=== PATIENT | male | born 1955 | race Caucasian/White ===

== ENCOUNTER 2020-06-23 07:48 | Outpatient (REF) | payer OTHER, MEDICARE, SELFPAY ==
[2020-06-23 08:45] LABS: MANUAL DIFF FLAG NO
[2020-06-23 09:14] LABS: Basophils Percent Auto 0.5 % (0-2); Hematocrit 40.9 % (42-52); Imm Gran Abs Auto 0.05 X10*3/uL (0.00-0.03); Imm Gran Pct Auto 0.8 % (0.0-0.4); Lymphocytes Absolute Auto 0.9 X10*3/uL (1.2-4.9); Lymphocytes Percent Auto 14.3 % (20-40); Mean Corpuscular HGB Conc 31.8 g/dl (31.0-36.0); Mean Corpuscular Hemoglobin 29.6 pg (27.0-33.0); Mean Corpuscular Volume 93.2 fL (80-98); Mean Platelet Volume 9.9 fL (9.4-12.4); Monocytes Absolute Auto 0.7 X10*3/uL (0.1-1.2); Monocytes Percent Auto 11.1 % (2-11); Neutrophils Absolute Auto 4.8 X10*3/uL (2.0-8.3); Neutrophils Percent Auto 73.3 % (45-73); Platelet Count 271 X10*3/uL (160-400); Red Blood Count 4.39 X10*6/uL (4.60-5.80); Red Cell Distribution Width 12.9 % (11.0-16.0); White Blood Count 6.5 X10*3/uL (4.8-10.8)
== END 2020-06-23 07:49 | disposition home or self-care (01) ==
LOC: HO.LABR 07:48
PROVIDERS: PCP Internal Medicine; Visit Provider Clinical Nurse Specialist Psychiatric/Mental Health, Adult
DX: Z79.899 Other long term (current) drug therapy (principal)
CPT/HCPCS: 36415; 85025; 85048

== ENCOUNTER 2020-06-26 11:49 | Outpatient (REF) | payer MEDICARE, SELFPAY ==
--- NOTE | 2020-06-26 08:43 | CT_ITS ---
EXAMINATION: CT CHEST WITHOUT CONTRAST CLINICAL INFORMATION: History of lung cancer, upper left lobe. COMPARISON: None TECHNIQUE: Multidetector volumetric CT imaging of the chest was done. Axial MIP volume rendering provided. Sagittal and coronal reformatted images were obtained. This CT examination was performed using dose optimization techniques as appropriate, variously including the following: *Automated exposure control *Adjustment of mA and/or kV according to patient size (this includes techniques or standardized protocols for targeted exams where dose is matched to indication/reason for exam; i.e. extremities or head) *Use of iterative reconstruction technique DLP: 184 mGy-cm FINDINGS: FULFILLMENT ASSOCIATE: The right lung is expanded and clear. There are total left pneumonectomy changes. Trachea appears midline. LUNGS: There are total left pneumonectomy changes with no recurrent mass seen. Expected minimal pleural effusion is noted. The right lung is expanded and clear of acute pneumonic process. Small 2 mm subpleural nodule right upper lobe axial image 202/7, 2 nodules subpleural based right upper lobe image 191/7. Previously visualized clustered nodules in the peribronchial region and bronchial wall thickening has improved. There are small ground-glass densities in the right lower lobe measuring 7 mm image 372/7, 4 mm ground-glass density right lower lobe image 373/7 and smaller ground-glass densities in the vicinity in the same location, a 5 mm ground-glass density seen in the right lower lobe axial image 413/7. The right lower lobe ground-glass densities are new. There is a 2 mm right bronchial nodule or debris on axial image 210/7. There is minimal peribronchial thickening along the anterior bronchial segments right upper lobe. MEDIASTINUM: There is moderate mediastinal shift to the left. The heart size and great vessels are normal in caliber. No abnormal size mediastinal mass or lymph node seen. Previously seen mid tracheal intraluminal nodule has resolved. There is a left bronchiolar intraluminal nodule on axial image 213/7, appears stable. PLEURA: There is mild thickening of left pleura with calcification and minimal fluid within the pleural space, an expected finding post pneumonectomy. AXILLA: No lymphadenopathy. UPPER ABDOMEN: Visualized liver, spleen and pancreas appear unremarkable. There is a 4 mm radiopaque calculi without caliectasis in upper pole left kidney. OSSEOUS STRUCTURES: No lytic or sclerotic process seen. CT/CT chest wo con IMPRESSION: Status post total left pneumonectomy with postoperative changes noted. No recurrent tumor is suspected. The right upper lobe cluster of peribronchial nodules and peribronchial thickening have improved. There are new ground-glass nodules in the right lower lobe. These could be secondary to airway disease. Two subpleural nodules right upper lobe are stable. Intraluminal mid tracheal nodule has resolved. Left distal bronchial nodule is stable.
== END 2020-06-26 11:50 | disposition home or self-care (01) ==
LOC: HO.CT 11:49
PROVIDERS: PCP Internal Medicine; Visit Provider Surgery
DX: C34.12 Malignant neoplasm of upper lobe, left bronchus or lung (principal)
CPT/HCPCS: 71250

== ENCOUNTER → 2020-07-11 10:34 | Outpatient (BNVA) | payer MEDICARE, OTHER, SELFPAY | PROVIDERS: PCP Internal Medicine; Referring Provider Internal Medicine; Visit Provider Surgery | DX: R91.8 Other nonspecific abnormal finding of lung field (principal); Z85.118 Personal history of other malignant neoplasm of bronchus and lung | CPT/HCPCS: 99214 ==

== ENCOUNTER → 2020-07-17 09:06 | Outpatient (BNVA) | payer OTHER, MEDICARE, SELFPAY | PROVIDERS: PCP Internal Medicine; Referring Provider Internal Medicine; Visit Provider Internal Medicine Pulmonary Disease | DX: Z76.89 Persons encountering health services in other specified circumstances (principal) ==

== ENCOUNTER 2020-07-18 10:26 | Outpatient (REF) | payer OTHER, SELFPAY ==
[2020-07-18 11:38] LABS: MANUAL DIFF FLAG NO
[2020-07-18 11:44] LABS: Basophils Percent Auto 0.5 % (0-2); Hematocrit 39.8 % (42-52); Hemoglobin 12.8 g/dl (14.0-18.0); Imm Gran Abs Auto 0.03 X10*3/uL (0.00-0.03); Imm Gran Pct Auto 0.5 % (0.0-0.4); Lymphocytes Absolute Auto 0.8 X10*3/uL (1.2-4.9); Lymphocytes Percent Auto 13.6 % (20-40); Mean Corpuscular HGB Conc 32.2 g/dl (31.0-36.0); Mean Corpuscular Hemoglobin 29.7 pg (27.0-33.0); Mean Corpuscular Volume 92.3 fL (80-98); Mean Platelet Volume 10.4 fL (9.4-12.4); Monocytes Absolute Auto 0.6 X10*3/uL (0.1-1.2); Neut%MD 75.4 %; Neutrophils Absolute Auto 4.6 X10*3/uL (2.0-8.3); Neutrophils Percent Auto 75.4 % (45-73); Platelet Count 245 X10*3/uL (160-400); Red Blood Count 4.31 X10*6/uL (4.60-5.80); Red Cell Distribution Width 13.2 % (11.0-16.0); WBCANC 6.1 X10*3/uL; White Blood Count 6.1 X10*3/uL (4.8-10.8)
== END 2020-07-18 10:27 | disposition home or self-care (01) ==
LOC: HO.LABR 10:26
PROVIDERS: PCP Internal Medicine; Visit Provider Clinical Nurse Specialist Psychiatric/Mental Health, Adult
DX: Z79.899 Other long term (current) drug therapy (principal)
CPT/HCPCS: 36415; 85025

== ENCOUNTER 2020-07-31 08:52 | Outpatient (REF) | payer OTHER, SELFPAY ==
--- NOTE | 2020-07-31 17:38 | PFT_ITS ---
INDICATION: COPD. SPIROMETRY: The FEV1 to FVC 82% with an FEV1 of 1.57 L, which is 49% predicted, FVC of 1.88 L, which is 44% predicted. The patient has significant small airways disease, but no significant response to bronchodilators noted. Maximum voluntary ventilation 70% predicted. LUNG VOLUMES: Total lung capacity 64% predicted with an expiratory reserve volume of 30% predicted. DIFFUSION CAPACITY: DLCO 56% predicted. COMPARISON: PFTs from 2014. INTERPRETATION: No definitive obstructive ventilatory defect. No significant response to bronchodilators noted, although, there is evidence of small airways disease. The patient does have a mild decrease in maximum voluntary ventilation, which could be due to deconditioning, although neuromuscular conditions cannot be ruled out. Lung volumes do demonstrate a [id number] restrictive ventilatory defect with a significant decrease in the expiratory reserve volume. In addition to that, does have a moderate diffusion impairment. When compared to 2013, there is a significant drop in his FVC, a significant decrease in the FEV1, a significant decrease in the total lung capacity, and a significant decrease in the diffusion capacity. Clinical correlation warranted. MD ANNA Gamino/MODL / [id number]
== END 2020-07-31 08:53 | disposition home or self-care (01) ==
LOC: HO.RESP 08:52
PROVIDERS: Visit Provider Internal Medicine Pulmonary Disease
DX: J44.9 Chronic obstructive pulmonary disease, unspecified (principal)
CPT/HCPCS: 94060; 94727; 94729

== ENCOUNTER → 2020-08-05 09:06 | Outpatient (BNVA) | payer OTHER, MEDICARE, SELFPAY | PROVIDERS: PCP Internal Medicine; Referring Provider Internal Medicine; Visit Provider Internal Medicine Pulmonary Disease | DX: Z76.89 Persons encountering health services in other specified circumstances (principal) ==

== ENCOUNTER 2020-08-25 06:43 | Outpatient (REF) | payer MEDICARE, SELFPAY ==
[2020-08-25 07:21] LABS: MANUAL DIFF FLAG NO
[2020-08-25 07:25] LABS: Basophils Percent Auto 0.4 % (0-2); Hematocrit 39.2 % (42-52); Hemoglobin 12.6 g/dl (14.0-18.0); Imm Gran Abs Auto 0.04 X10*3/uL (0.00-0.03); Imm Gran Pct Auto 0.7 % (0.0-0.4); Lymphocytes Absolute Auto 1.1 X10*3/uL (1.2-4.9); Lymphocytes Percent Auto 19.5 % (20-40); Mean Corpuscular HGB Conc 32.1 g/dl (31.0-36.0); Mean Corpuscular Hemoglobin 30.1 pg (27.0-33.0); Mean Corpuscular Volume 93.6 fL (80-98); Mean Platelet Volume 9.8 fL (9.4-12.4); Monocytes Absolute Auto 0.6 X10*3/uL (0.1-1.2); Monocytes Percent Auto 11.2 % (2-11); Neut%MD 68.2 %; Neutrophils Absolute Auto 3.7 X10*3/uL (2.0-8.3); Neutrophils Percent Auto 68.2 % (45-73); Platelet Count 245 X10*3/uL (160-400); Red Blood Count 4.19 X10*6/uL (4.60-5.80); Red Cell Distribution Width 13.3 % (11.0-16.0); WBCANC 5.4 X10*3/uL; White Blood Count 5.4 X10*3/uL (4.8-10.8)
== END 2020-08-25 06:44 | disposition home or self-care (01) ==
LOC: HO.LAB 06:43
PROVIDERS: PCP Internal Medicine; Visit Provider Clinical Nurse Specialist Psychiatric/Mental Health, Adult
DX: Z79.899 Other long term (current) drug therapy (principal)
CPT/HCPCS: 36415; 85025; 85048

== ENCOUNTER 2020-09-22 07:18 | Outpatient (REF) | payer OTHER, MEDICARE, SELFPAY ==
[2020-09-22 07:54] LABS: MANUAL DIFF FLAG NO
[2020-09-22 07:58] LABS: Basophils Percent Auto 0.3 % (0-2); Hematocrit 42.9 % (42-52); Hemoglobin 13.7 g/dl (14.0-18.0); Imm Gran Abs Auto 0.03 X10*3/uL (0.00-0.03); Imm Gran Pct Auto 0.5 % (0.0-0.4); Lymphocytes Absolute Auto 0.9 X10*3/uL (1.2-4.9); Lymphocytes Percent Auto 15.6 % (20-40); Mean Corpuscular HGB Conc 31.9 g/dl (31.0-36.0); Mean Corpuscular Volume 93.9 fL (80-98); Mean Platelet Volume 9.8 fL (9.4-12.4); Monocytes Absolute Auto 0.6 X10*3/uL (0.1-1.2); Monocytes Percent Auto 9.3 % (2-11); Neut%MD 74.3 %; Neutrophils Absolute Auto 4.5 X10*3/uL (2.0-8.3); Neutrophils Percent Auto 74.3 % (45-73); Platelet Count 245 X10*3/uL (160-400); Red Blood Count 4.57 X10*6/uL (4.60-5.80); Red Cell Distribution Width 13.4 % (11.0-16.0)
== END 2020-09-22 07:19 | disposition home or self-care (01) ==
LOC: HO.LABR 07:18
PROVIDERS: PCP Internal Medicine; Visit Provider Clinical Nurse Specialist Psychiatric/Mental Health, Adult
DX: Z79.899 Other long term (current) drug therapy (principal)
CPT/HCPCS: 36415; 85025; 85048

== ENCOUNTER 2020-10-23 12:27 | Outpatient (REF) | payer OTHER, SELFPAY ==
[2020-10-23 13:01] LABS: MANUAL DIFF FLAG NO
[2020-10-23 13:09] LABS: Basophils Percent Auto 0.3 % (0-2); Hematocrit 37.7 % (42-52); Imm Gran Abs Auto 0.04 X10*3/uL (0.00-0.03); Imm Gran Pct Auto 0.7 % (0.0-0.4); Lymphocytes Absolute Auto 0.8 X10*3/uL (1.2-4.9); Lymphocytes Percent Auto 13.8 % (20-40); Mean Corpuscular HGB Conc 31.8 g/dl (31.0-36.0); Mean Corpuscular Hemoglobin 29.4 pg (27.0-33.0); Mean Corpuscular Volume 92.4 fL (80-98); Mean Platelet Volume 9.7 fL (9.4-12.4); Monocytes Absolute Auto 0.7 X10*3/uL (0.1-1.2); Monocytes Percent Auto 11.9 % (2-11); Neut%MD 73.3 %; Neutrophils Absolute Auto 4.4 X10*3/uL (2.0-8.3); Neutrophils Percent Auto 73.3 % (45-73); Platelet Count 241 X10*3/uL (160-400); Red Blood Count 4.08 X10*6/uL (4.60-5.80); Red Cell Distribution Width 13.3 % (11.0-16.0)
== END 2020-10-23 12:28 | disposition home or self-care (01) ==
LOC: HO.LABR 12:27
PROVIDERS: Visit Provider Clinical Nurse Specialist Psychiatric/Mental Health, Adult
DX: Z13.89 Encounter for screening for other disorder (principal)
CPT/HCPCS: 36415; 85025; 85048

== ENCOUNTER 2020-10-29 13:26 | Outpatient (REF) | payer MEDICARE, SELFPAY ==
[2020-10-29 14:04] LABS: MANUAL DIFF FLAG NO
[2020-10-29 14:18] LABS: Basophils Percent Auto 0.4 % (0-2); Hematocrit 41.2 % (42-52); Hemoglobin 13.1 g/dl (14.0-18.0); Imm Gran Abs Auto 0.03 X10*3/uL (0.00-0.03); Imm Gran Pct Auto 0.6 % (0.0-0.4); Lymphocytes Absolute Auto 0.9 X10*3/uL (1.2-4.9); Lymphocytes Percent Auto 17.4 % (20-40); Mean Corpuscular HGB Conc 31.8 g/dl (31.0-36.0); Mean Corpuscular Hemoglobin 29.8 pg (27.0-33.0); Mean Corpuscular Volume 93.6 fL (80-98); Monocytes Absolute Auto 0.6 X10*3/uL (0.1-1.2); Neutrophils Absolute Auto 3.7 X10*3/uL (2.0-8.3); Neutrophils Percent Auto 70.6 % (45-73); Platelet Count 237 X10*3/uL (160-400); Red Cell Distribution Width 13.2 % (11.0-16.0); White Blood Count 5.3 X10*3/uL (4.8-10.8)
[2020-10-29 14:34] LABS: Alanine Aminotransferase 31 U/L (0-40); Albumin Level 4.2 g/dL (3.5-5.0); Alkaline Phosphatase 83 U/L (39-117); Anion Gap 11 (12-20); Aspartate Amino Transferase 22 U/L (5-37); Bilirubin Total 0.6 mg/dL (0.0-1.0); Blood Urea Nitrogen 23 mg/dL (9-16); C Reactive Protein 0.18 mg/dL (< or = 0.50); Calcium 9.3 mg/dL (8.4-10.2); Carbon Dioxide 32 mmol/L (22-29); Chloride 102 mmol/L (96-108); Estimated Glomerular Filt Rate > 60; Glucose Random 107 mg/dL (60-115); Potassium 4.5 mmol/L (3.3-5.1); Sodium 140 mmol/L (135-145); Total Protein 6.7 g/dL (6.5-8.0)
[2020-10-29 14:58] LABS: Thyroid Stimulating Hormone 2.55 uIU/mL (0.32-4.0); Vitamin D 25-OH Total 51.2 ng/mL (>30)
[2020-10-29 15:08] LABS: Folate 16.6 ng/mL (> or = 4.0); Vitamin B12 689 pg/mL (200-900)
[2020-10-29 15:12] LABS: Erythrocyte Sedimentation Rate 12 MM/HR (0-15)
== END 2020-10-29 13:27 | disposition home or self-care (01) ==
LOC: HO.HMGCLDS 13:26
PROVIDERS: PCP Internal Medicine; Visit Provider Internal Medicine
DX: R53.83 Other fatigue (principal)
CPT/HCPCS: 36415; 80053; 82306; 82607; 82746; 84443; 85025; 85652; 86140

== ENCOUNTER → 2020-11-12 10:41 | Outpatient (BNVA) | payer MEDICARE, SELFPAY | PROVIDERS: PCP Internal Medicine; Visit Provider Internal Medicine Pulmonary Disease | DX: J44.9 Chronic obstructive pulmonary disease, unspecified (principal); R91.8 Other nonspecific abnormal finding of lung field; Z87.891 Personal history of nicotine dependence | CPT/HCPCS: 99212 ==

== ENCOUNTER 2020-11-17 12:38 | Outpatient (REF) | payer MEDICARE, SELFPAY ==
[2020-11-17 14:40] LABS: MANUAL DIFF FLAG NO
[2020-11-17 14:48] LABS: Basophils Percent Auto 0.1 % (0-2); Hematocrit 39.2 % (42-52); Hemoglobin 12.5 g/dl (14.0-18.0); Imm Gran Abs Auto 0.03 X10*3/uL (0.00-0.03); Imm Gran Pct Auto 0.4 % (0.0-0.4); Lymphocytes Absolute Auto 0.9 X10*3/uL (1.2-4.9); Lymphocytes Percent Auto 12.4 % (20-40); Mean Corpuscular HGB Conc 31.9 g/dl (31.0-36.0); Mean Corpuscular Hemoglobin 29.8 pg (27.0-33.0); Mean Corpuscular Volume 93.3 fL (80-98); Mean Platelet Volume 10.2 fL (9.4-12.4); Monocytes Absolute Auto 0.6 X10*3/uL (0.1-1.2); Monocytes Percent Auto 8.9 % (2-11); Neutrophils Absolute Auto 5.4 X10*3/uL (2.0-8.3); Neutrophils Percent Auto 78.2 % (45-73); Platelet Count 255 X10*3/uL (160-400); Red Cell Distribution Width 13.2 % (11.0-16.0)
[2020-11-17 14:59] LABS: Estimated Average Glucose 108 mg/dL; Hemoglobin A1c % 5.4 %
[2020-11-17 15:31] LABS: Alanine Aminotransferase 43 U/L (0-40); Albumin Level 4.2 g/dL (3.5-5.0); Alkaline Phosphatase 77 U/L (39-117); Anion Gap 14 (12-20); Aspartate Amino Transferase 26 U/L (5-37); Bilirubin Total 0.3 mg/dL (0.0-1.0); Blood Urea Nitrogen 23 mg/dL (9-16); Calcium 8.2 mg/dL (8.4-10.2); Carbon Dioxide 26 mmol/L (22-29); Chloride 107 mmol/L (96-108); Cholesterol 170 mg/dL; Estimated Glomerular Filt Rate > 60; Glucose Fasting 88 mg/dL (60-99); HDL Cholesterol 75 mg/dL; LDL Cholesterol Calculated 87 mg/dl; Magnesium 2.3 mg/dL (1.6-2.6); Potassium 4.5 mmol/L (3.3-5.1); Sodium 142 mmol/L (135-145); Total Protein 6.6 g/dL (6.5-8.0); Triglycerides 40 mg/dL
[2020-11-17 15:42] LABS: Glucose Urine UA NEG (NEG); Leukocyte Esterase Urine NEG (NEG); Nitrite Urine NEG (NEG); PH 6.5 (5.0-8.0); Specific Gravity - Urine 1.025 (1.005-1.025); Urine Blood NEG (NEG); Urine Ketones NEG (NEG); Urine Protein NEG (NEG-TRACE)
[2020-11-17 15:48] LABS: Appearance Urine CLEAR; Color Urine YELLOW
[2020-11-17 16:01] LABS: Creatinine Urine 142.63 mg/dL; Microalbum/Creatinine Ratio Ur 3.5 ug/mg cr
[2020-11-17 17:02] LABS: RBC Urine 0 /HPF (0); WBC Urine 0 /HPF (0-4)
== END 2020-11-17 12:39 | disposition home or self-care (01) ==
LOC: HO.HMGCLDS 12:38
PROVIDERS: PCP Internal Medicine; Visit Provider Internal Medicine
DX: R25.2 Cramp and spasm (principal); Z83.3 Family history of diabetes mellitus
CPT/HCPCS: 36415; 80053; 80061; 81001; 82043; 82550; 83036; 83735; 85025

== ENCOUNTER 2020-11-24 07:17 | Outpatient (REF) | payer OTHER, SELFPAY ==
[2020-11-24 08:13] LABS: MANUAL DIFF FLAG NO
[2020-11-24 08:22] LABS: Basophils Percent Auto 0.4 % (0-2); Hematocrit 39.4 % (42-52); Hemoglobin 12.8 g/dl (14.0-18.0); Imm Gran Abs Auto 0.03 X10*3/uL (0.00-0.03); Imm Gran Pct Auto 0.6 % (0.0-0.4); Lymphocytes Percent Auto 18.8 % (20-40); Mean Corpuscular HGB Conc 32.5 g/dl (31.0-36.0); Mean Corpuscular Hemoglobin 30.2 pg (27.0-33.0); Mean Corpuscular Volume 92.9 fL (80-98); Mean Platelet Volume 10.2 fL (9.4-12.4); Monocytes Absolute Auto 0.6 X10*3/uL (0.1-1.2); Monocytes Percent Auto 10.7 % (2-11); Neut%MD 69.5 %; Neutrophils Absolute Auto 3.6 X10*3/uL (2.0-8.3); Neutrophils Percent Auto 69.5 % (45-73); Platelet Count 244 X10*3/uL (160-400); Red Blood Count 4.24 X10*6/uL (4.60-5.80); WBCANC 5.2 X10*3/uL; White Blood Count 5.2 X10*3/uL (4.8-10.8)
== END 2020-11-24 07:18 | disposition home or self-care (01) ==
LOC: HO.LABR 07:17
PROVIDERS: PCP Internal Medicine; Visit Provider Clinical Nurse Specialist Psychiatric/Mental Health, Adult
DX: Z79.899 Other long term (current) drug therapy (principal)
CPT/HCPCS: 36415; 85025; 85048

== ENCOUNTER 2020-11-27 03:13 | Emergency (ER) | payer MEDICARE, SELFPAY ==
--- NOTE | ~2020-11-27 | XR_ITS ---
EXAMINATION: CHEST 1 VIEW CLINICAL INFORMATION: Shortness of breath. COMPARISON: Multiple prior exams are reviewed. The most recent is from 06/26/2020. TECHNIQUE: An AP view of the chest is provided. FINDINGS: The cardiac silhouette is stable. There is persistent shift of midline structures to the left in this patient status post left pneumonectomy. There is stable opacification within the left hemithorax. The right lung is clear. The osseous structures are stable. XR/XR chest 1V IMPRESSION: Stable chest radiograph without acute disease demonstrable.
[2020-11-27 03:15] VITALS: BP 112/74; PULSE 98; O2SAT 98
[2020-11-27 03:17] VITALS: BP 128/76; PULSE 85; RESP 20; TEMP 36.7; O2SAT 98; BMI 24.3
--- NOTE | 2020-11-27 03:33 | ED.GENADULT ---
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 Came by EMS for feeling of mucus plug in his lung just 2 hours prior to arrival his nebulizing treatment without any significant effect he been having similar kind of feeling off and on with workup negative patient's saturation was 98% at room air blood pressure 112/74 patient seems to be anxious. Patient denied any fever or chills does have dry cough patient just seen by per diem interpreter on 11/12 and had the blood workup done on 11/24 which was stable Onset (ago): hour(s) (2hrs) Related Data Home Medications Medication Instructions Recorded Confirmed clozapine 300mg LINGUAL BEDTIME 07/10/20 07/11/20 ipratropium 0.5 mg-albuterol 3 mg ml INHALATION 07/17/20 (2.5 mg base)/3 mL nebulization soln Previous Rx's Medication Instructions Recorded sodium chloride 0.65 % nasal spray 2 spray INTRANASAL TID #15 ml 11/12/20 aerosol Allergies Allergy/AdvReac Type Severity Reaction Status Date / Time No Known Allergies Allergy Verified 11/12/20 10:46 Review of Systems Review of Systems: Constitutional : No Weight loss, No Fever, No Chills ENT/Mouth : No sore throat, No Rhinorrhea Eyes: No Eye Pain, No Swelling Cardiovascular : No Chest Pain, no palpitations Respiratory : + Cough, No Sputum, + shortness of breath Gastrointestinal : no Nausea, No Vomiting, No Diarrhea, No abdominal Pain, no black stools Genitourinary : No Dysuria, No Urinary Frequency Musculoskeletal : No joint pain, No Myalgias, No Joint Swelling Skin : No Skin Lesions, No rash Neuro : No Weakness, No Numbness, No Dizziness, No Headache Psych : No Anxiety/Panic, No Depression Heme/Lymph: No Bruising, No Lymphadenopathy Endocrine : No Polyuria, No Polydipsia All other systems reviewed and are negative PMFSH Past Medical History Surgical History Angiolipoma H/O pneumonectomy Laryngeal carcinoma Family History Family History Father No problems noted. Mother No problems noted. Brother No problems noted. Brother No problems noted. Social History Social History Smoking Status: Former smoker Years Smoked: 33 yrs Advance Directives: No Physical Exam Vital Signs: Vital Signs: Last Vital Signs Temp 98.0 F 11/27/20 03:17 Pulse 85 11/27/20 03:17 Resp 20 11/27/20 03:17 BP 128/76 11/27/20 03:17 Pulse Ox 98 11/27/20 03:17 Body Mass Index 24.3 Appearance: Alert. Oriented X3. No acute distress. Anxious Eyes: Pupils equal, round and reactive to light. ENT: Pharynx normal. Neck: Normal inspection. Neck supple. CVS: Normal heart rate and rhythm. Pulses normal. Respiratory: Less air entry on the left side good air entry on the right no crackles expiratory wheezing+ dullness on the left side Abdomen: Soft and nontender. Bowel sounds are present, no mass palpable, no CVA tenderness Skin: Skin warm and dry. Normal skin color. Normal skin turgor. Extremities: 2+ lower extremity edema. Neuro: Oriented X 3. No motor deficit. No sensory deficit. Medical Decision Making MDM Narrative Medical decision making narrative: Patient with schizophrenia chronic bronchitis lung cancer came with mucus plugged feeling in the lungs saturating 98% chest x-ray without any acute change labs are stable already seen by per diem interpreter. Will discharge patient home advised to follow-up with per diem interpreter continue nebulizing treatment Lab Data Lab results reviewed: Yes I reviewed the patient's lab results. Result diagrams: 11/27/20 03:57 11/27/20 03:57 Labs: Lab Results 11/27/20 11/27/20 11/27/20 Range/Units 03:57 03:57 03:57 WBC 5.0 (4.8-10.8) X10*3/uL RBC 4.18 L (4.60-5.80) X10*6/uL Hgb 12.5 L (14.0-18.0) g/dl Hct 38.9 L (42-52) % MCV 93.1 (80-98) fL MCH 29.9 (27.0-33.0) pg MCHC 32.1 (31.0-36.0) g/dl RDW 13.0 (11.0-16.0) % Plt Count 216 (160-400) X10*3/uL MPV 9.4 (9.4-12.4) fL Immature Gran % (Auto) 0.8 H (0.0-0.4) % Neut % (Auto) 71.0 (45-73) % Lymph % (Auto) 17.6 L (20-40) % [place] % (Auto) 10.2 (2-11) % Eos % (Auto) 0.0 (0-4) % Baso % (Auto) 0.4 (0-2) % Lymph # (Auto) 0.9 L (1.2-4.9) X10*3/uL [place] # (Auto) 0.5 (0.1-1.2) X10*3/uL Eos # (Auto) 0.0 (0.0-0.4) X10*3/uL Baso # (Auto) 0.0 (0.0-0.2) X10*3/uL Abs Immat Gran (auto) 0.04 H (0.00-0.03) X10*3/uL Absolute Neuts (auto) 3.6 (2.0-8.3) X10*3/uL Absolute Nucleated RBC 0.000 (0.0-0.012) X10*3/uL Nucleated RBC % (auto) 0.0 (0.0-0.2) /100WBC PT 12.7 (10.8-13.0) SEC INR 1.1 (0.9-1.1) Sodium 142 (135-145) mmol/L Potassium 3.8 (3.3-5.1) mmol/L Chloride 104 (96-108) mmol/L Carbon Dioxide 30 H (22-29) mmol/L Anion Gap 12 (12-20) BUN 23 H (9-16) mg/dL Creatinine 1.18 (0.5-1.4) mg/dL Estim Creat Clear Calc 59.5 Estimated GFR > 60 Random Glucose 169 H D (60-115) mg/dL Calcium 9.0 D (8.4-10.2) mg/dL Total Bilirubin 0.3 (0.0-1.0) mg/dL Direct Bilirubin < 0.2 (0.0-0.5) mg/dL AST 20 (5-37) U/L ALT 28 (0-40) U/L Alkaline Phosphatase 69 (39-117) U/L Troponin I High Sens (<3.5-35.0) ng/L B-Natriuretic Peptide (<100) pg/mL Total Protein 6.1 L (6.5-8.0) g/dL Albumin 4.0 (3.5-5.0) g/dL 11/27/20 11/27/20 Range/Units 03:57 03:57 WBC (4.8-10.8) X10*3/uL RBC (4.60-5.80) X10*6/uL Hgb (14.0-18.0) g/dl Hct (42-52) % MCV (80-98) fL MCH (27.0-33.0) pg MCHC (31.0-36.0) g/dl RDW (11.0-16.0) % Plt Count (160-400) X10*3/uL MPV (9.4-12.4) fL Immature Gran % (Auto) (0.0-0.4) % Neut % (Auto) (45-73) % Lymph % (Auto) (20-40) % [place] % (Auto) (2-11) % Eos % (Auto) (0-4) % Baso % (Auto) (0-2) % Lymph # (Auto) (1.2-4.9) X10*3/uL [place] # (Auto) (0.1-1.2) X10*3/uL Eos # (Auto) (0.0-0.4) X10*3/uL Baso # (Auto) (0.0-0.2) X10*3/uL Abs Immat Gran (auto) (0.00-0.03) X10*3/uL Absolute Neuts (auto) (2.0-8.3) X10*3/uL Absolute Nucleated RBC (0.0-0.012) X10*3/uL Nucleated RBC % (auto) (0.0-0.2) /100WBC PT (10.8-13.0) SEC INR (0.9-1.1) Sodium (135-145) mmol/L Potassium (3.3-5.1) mmol/L Chloride (96-108) mmol/L Carbon Dioxide (22-29) mmol/L Anion Gap (12-20) BUN (9-16) mg/dL Creatinine (0.5-1.4) mg/dL Estim Creat Clear Calc Estimated GFR Random Glucose (60-115) mg/dL Calcium (8.4-10.2) mg/dL Total Bilirubin (0.0-1.0) mg/dL Direct Bilirubin (0.0-0.5) mg/dL AST (5-37) U/L ALT (0-40) U/L Alkaline Phosphatase (39-117) U/L Troponin I High Sens < 3.5 (<3.5-35.0) ng/L B-Natriuretic Peptide < 10 (<100) pg/mL Total Protein (6.5-8.0) g/dL Albumin (3.5-5.0) g/dL Discharge Plan Discharge Clinical Impression: Lung cancer Qualifiers: Laterality: left Lung location: unspecified part of lung Qualified Code(s): C34.92 - Malignant neoplasm of unspecified part of left bronchus or lung Chronic bronchitis Qualifiers: Chronic bronchitis type: mucopurulent Qualified Code(s): J41.1 - Mucopurulent chronic bronchitis Patient Disposition: Home, Self-Care Instructions: Lung Cancer (DC), Chronic Bronchitis (ED) Additional Instructions: Continue medication as prescribed by lung specialist use nebulizing treatment every 4-6 hours. Follow up with your per diem interpreter Prescriptions: No Action clozapine 300mg tablet LINGUAL BEDTIME RF: 0 sodium chloride [[place] Saline] 0.65 % aerosol,spray 2 spray intranasal TID Qty: 15 RF: 1
--- NOTE | 2020-11-27 03:34 | ECG_ITS ---
Test Reason : SOB Blood Pressure : / mmHG Vent. Rate : 096 BPM Atrial Rate : 096 BPM P-R Int : 144 ms QRS Dur : 098 ms QT Int : 376 ms P-R-T Axes : 036 060 055 degrees QTc Int : 475 ms Normal sinus rhythm Low voltage QRS Abnormal ECG When compared to the previous EKG of No significant changes seen Referred By: Jerardo Jean Electronically Signed By:Daniele Cope
[2020-11-27 04:03] LABS: Basophils Percent Auto 0.4 % (0-2); Hematocrit 38.9 % (42-52); Hemoglobin 12.5 g/dl (14.0-18.0); Imm Gran Abs Auto 0.04 X10*3/uL (0.00-0.03); Imm Gran Pct Auto 0.8 % (0.0-0.4); Lymphocytes Absolute Auto 0.9 X10*3/uL (1.2-4.9); Lymphocytes Percent Auto 17.6 % (20-40); MANUAL DIFF FLAG NO; Mean Corpuscular HGB Conc 32.1 g/dl (31.0-36.0); Mean Corpuscular Hemoglobin 29.9 pg (27.0-33.0); Mean Corpuscular Volume 93.1 fL (80-98); Mean Platelet Volume 9.4 fL (9.4-12.4); Monocytes Absolute Auto 0.5 X10*3/uL (0.1-1.2); Monocytes Percent Auto 10.2 % (2-11); Neutrophils Absolute Auto 3.6 X10*3/uL (2.0-8.3); Platelet Count 216 X10*3/uL (160-400); Red Blood Count 4.18 X10*6/uL (4.60-5.80)
[2020-11-27 04:08] LABS: INTERNATIONAL NORM RATIO 1.1 (0.9-1.1); Prothrombin Time 12.7 SEC (10.8-13.0)
[2020-11-27 04:41] LABS: Alanine Aminotransferase 28 U/L (0-40); Alkaline Phosphatase 69 U/L (39-117); Anion Gap 12 (12-20); Aspartate Amino Transferase 20 U/L (5-37); Bilirubin Direct < 0.2 mg/dL (0.0-0.5); Bilirubin Total 0.3 mg/dL (0.0-1.0); Blood Urea Nitrogen 23 mg/dL (9-16); Carbon Dioxide 30 mmol/L (22-29); Chloride 104 mmol/L (96-108); Creatinine Clr Calc Pharmacy 59.5; Estimated Glomerular Filt Rate > 60; Glucose Random 169 mg/dL (60-115); Potassium 3.8 mmol/L (3.3-5.1); Sodium 142 mmol/L (135-145); Total Protein 6.1 g/dL (6.5-8.0)
[2020-11-27 04:47] LABS: B Type Natriuretic Peptide < 10 pg/mL (<100); Troponin-I High Sensitivity < 3.5 ng/L (<3.5-35.0)
== END 2020-11-27 06:11 | disposition home or self-care (01) ==
PROVIDERS: Emergency Provider Internal Medicine
DX: C34.92 Malignant neoplasm of unspecified part of left bronchus or lung (principal); J41.1 Mucopurulent chronic bronchitis; F20.9 Schizophrenia, unspecified; Z87.891 Personal history of nicotine dependence; Z79.899 Other long term (current) drug therapy
CPT/HCPCS: 36415; 71045; 80048; 80076; 83880; 84484; 85025; 85610; 93005; 99202; 99283

== ENCOUNTER 2020-12-02 07:45 | Outpatient (REF) | payer MEDICARE, SELFPAY ==
--- NOTE | ~2020-12-02 | US_ITS ---
EXAMINATION: RIGHT and LEFT LOWER EXTREMITY VENOUS ULTRASOUND (Reflux Exam) CLINICAL INDICATION: Varicose veins of the right lower extremity with inflammation. COMPARISON: None. TECHNIQUE: Color flow triplex imaging and compression Doppler was performed to evaluate both the deep and the superficial systems bilaterally. To evaluate the superficial system, the examination was performed in the upright position. Color-flow Doppler ultrasound and compression ultrasound were utilized. In addition, maneuvers were utilized to demonstrate reflux. FINDINGS: 1. DEEP VENOUS ULTRASOUND OF THE RIGHT LOWER EXTREMITY: Respiratory variation, normal compression and augmented flow are noted in the right common femoral vein as well as the right popliteal vein and there is no evidence of deep venous thrombosis at these locations. There is no evidence of reflux in the deep system in either the common femoral vein or the popliteal vein. There is no evidence of a Cline's cyst. Popliteal artery aneurysm or popliteal fossa cyst. 2. SUPERFICIAL ULTRASOUND WITH DOPPLER OF RIGHT LOWER EXTREMITY: The right great saphenous vein at the saphenofemoral junction measures 5 mm without reflux, at the mid thigh 3 mm with reflux greater than 3 seconds, above the knee 3 mm with reflux of greater than 3 seconds, below the knee 3 mm with reflux of greater than 3 seconds, at mid calf 2 mm with reflux of approximately 0.7 seconds, and at the ankle measures 3 mm with reflux of greater than 3 seconds. The right small saphenous vein measures 3 mm and shows no reflux. There is a 1 mm mid thigh varicose vein with reflux noted within it of 2.8 seconds. There is a proximal calf 3 mm varix with reflux time of 2.8 seconds. 3. DEEP VENOUS ULTRASOUND OF THE LEFT LOWER EXTREMITY: Respiratory variation, normal compression and augmented flow are noted in the left common femoral vein as well as the left popliteal vein and there is no evidence of deep venous thrombosis at these locations. There is no evidence of reflux in the deep system in either the common femoral vein or the popliteal vein. . There is no evidence of a Cline's cyst. 4. SUPERFICIAL ULTRASOUND WITH DOPPLER OF LEFT LOWER EXTREMITY: Left great saphenous vein at the saphenofemoral junction measures 6 mm without reflux, at the mid thigh 3 mm without reflux, above the knee 2 mm without reflux, below the knee 3 mm with reflux of greater than 2.8 seconds, at mid calf 3 mm with reflux of greater than 2 seconds, and at the ankle measures 3 mm with reflux of approximately 2 seconds. The left small saphenous vein measures 4 mm and demonstrate reflux within the midcalf of 1.9 seconds and in the distal calf at greater than 3 seconds with no reflux seen at the saphenofemoral junction. US/US venous duplex LE BI IMPRESSION: No evidence of reflux or thrombus in the common femoral veins or popliteal veins bilaterally. No reflux seen at the saphenofemoral junctions bilaterally. Reflux noted about the right lower extremity saphenous vein from the mid thigh to the ankle. Reflux within the left lower extremity greater saphenous vein from the knee to the ankle.
== END 2020-12-02 07:46 | disposition home or self-care (01) ==
LOC: HO.US 07:45
PROVIDERS: Visit Provider Surgery Vascular Surgery
DX: I83.11 Varicose veins of right lower extremity with inflammation (principal); I83.893 Varicose veins of bilateral lower extremities with other complications
CPT/HCPCS: 93970

== ENCOUNTER → 2020-12-16 10:59 | Outpatient (BNVA) | payer MEDICARE, SELFPAY | PROVIDERS: PCP Internal Medicine; Visit Provider Surgery Vascular Surgery | DX: I83.11 Varicose veins of right lower extremity with inflammation (principal) | CPT/HCPCS: 99212 ==

== ENCOUNTER 2020-12-23 09:37 | Outpatient (REF) | payer OTHER, SELFPAY ==
[2020-12-23 10:33] LABS: MANUAL DIFF FLAG NO
[2020-12-23 10:45] LABS: Basophils Percent Auto 0.3 % (0-2); Hematocrit 39.9 % (42-52); Hemoglobin 12.7 g/dl (14.0-18.0); Imm Gran Abs Auto 0.05 X10*3/uL (0.00-0.03); Imm Gran Pct Auto 0.9 % (0.0-0.4); Lymphocytes Absolute Auto 0.8 X10*3/uL (1.2-4.9); Lymphocytes Percent Auto 14.4 % (20-40); Mean Corpuscular HGB Conc 31.8 g/dl (31.0-36.0); Mean Corpuscular Hemoglobin 29.7 pg (27.0-33.0); Mean Corpuscular Volume 93.4 fL (80-98); Mean Platelet Volume 9.6 fL (9.4-12.4); Monocytes Absolute Auto 0.7 X10*3/uL (0.1-1.2); Monocytes Percent Auto 11.2 % (2-11); Neut%MD 73.2 %; Neutrophils Absolute Auto 4.2 X10*3/uL (2.0-8.3); Neutrophils Percent Auto 73.2 % (45-73); Platelet Count 229 X10*3/uL (160-400); Red Blood Count 4.27 X10*6/uL (4.60-5.80); Red Cell Distribution Width 12.9 % (11.0-16.0); WBCANC 5.8 X10*3/uL; White Blood Count 5.8 X10*3/uL (4.8-10.8)
== END 2020-12-23 09:38 | disposition home or self-care (01) ==
LOC: HO.LABR 09:37
PROVIDERS: PCP Internal Medicine; Visit Provider Clinical Nurse Specialist Psychiatric/Mental Health, Adult
DX: Z79.899 Other long term (current) drug therapy (principal)
CPT/HCPCS: 36415; 85025; 85048

== ENCOUNTER 2020-12-29 10:38 | Outpatient (REF) | payer MEDICARE, SELFPAY | END 2020-12-29 10:39 | disposition home or self-care (01) | LOC: HO.10HDL 10:38 | PROVIDERS: Visit Provider Otolaryngology | DX: T78.1XXA Other adverse food reactions, not elsewhere classified, initial encounter (principal); X58.XXXA Exposure to other specified factors, initial encounter | CPT/HCPCS: 36415; 82785; 86003 ==

== ENCOUNTER 2020-12-30 16:47 | Emergency (ER) | payer MEDICARE, SELFPAY ==
[2020-12-30 16:57] VITALS: BP 110/45; PULSE 75; RESP 18; TEMP 36.8; O2SAT 98; BMI 24.6
--- NOTE | 2020-12-30 17:13 | ED.EAR ---
HPI - Ear Problem General Chief complaint: Ear Problems Stated complaint: FB R ear Time Seen by Provider: 12/30/20 17:06 Source: patient Mode of arrival: ambulatory Limitations: no limitations History of Present Illness HPI Narrative: Patient was cleaning his right ear with a Q-tip when it broke in his ear. Complaint: foreign body Related Data Home Medications Medication Instructions Recorded Confirmed clozapine 300mg LINGUAL BEDTIME 07/10/20 07/11/20 ipratropium 0.5 mg-albuterol 3 mg ml INHALATION 07/17/20 (2.5 mg base)/3 mL nebulization soln cholecalciferol (vitamin D3) 10 10 mcg PO DAILY 12/16/20 mcg (400 unit) capsule Previous Rx's Medication Instructions Recorded sodium chloride 0.65 % nasal spray 2 spray INTRANASAL TID #15 ml 11/12/20 aerosol Allergies Allergy/AdvReac Type Severity Reaction Status Date / Time No Known Allergies Allergy Verified 12/30/20 16:57 Review of Systems Review of Systems: Yes all other systems are reviewed and are negative Constitutional: Constitutional: Reports no additional constitutional complaints, Denies body ache(s), Denies chills, Denies fever(s), Denies headache(s) and Denies weakness Eyes: Eyes: Reports no additional eye complaints and Denies change in vision ENT: Reports system reviewed and no additional complaints, except as documented, Denies dizziness, Denies headache(s), Denies nasal congestion, Denies nasal discharge and Denies neck pain Cardiovascular: Cardiovascular: Reports no additional cardiovascular complaints, Denies chest pain, Denies leg edema and Denies dyspnea Respiratory: Respiratory: Reports no additional respiratory complaints, Denies cough and Denies dyspnea Gastrointestinal: Gastrointestinal: Reports no additional gastrointestinal complaints, Denies abdominal pain, Denies diarrhea, Denies nausea and Denies vomiting Genitourinary: Genitourinary: Denies urinary incontinence Musculoskeletal: Musculoskeletal: Reports no additional musculoskeletal complaints, Denies back pain, Denies arthralgias, Denies joint swelling, Denies neck pain, Denies numbness and Denies tingling Integumentary/Breasts: Skin/Breast: Reports system reviewed and no additional complaints, except as docu and Denies rash Neurologic: Reports system reviewed and no additional complaints, except as documented, Denies Abnormal speech present, Denies dizziness, Denies headache(s), Denies numbness, Denies tingling and Denies weakness PMF Past Medical History Attestation statement: The following information was validated with the patient. Source: old records reviewed and nursing notes reviewed Medical History Schizophrenia Squamous cell carcinoma of left lung Surgical History Angiolipoma H/O pneumonectomy Laryngeal carcinoma Family History Family History Father No problems noted. Mother No problems noted. Brother No problems noted. Brother No problems noted. Social History Social History Alcohol intake: never Smoking Status: Former smoker Years Smoked: 33 yrs Smoked in Last 30 Days: No Use of substances other than those prescribed or required for medical reasons: No Any prior treatment program specific to substance use: No Advance Directives: No Advance Directives Information Provided: No Physical Exam Vital Signs: Vital Signs: Last Vital Signs Temp 98.3 F 12/30/20 16:57 Pulse 75 12/30/20 16:57 Resp 18 12/30/20 16:57 BP 110/45 L 12/30/20 16:57 Pulse Ox 98 12/30/20 16:57 Body Mass Index 24.6 Const: General: cooperative, healthy appearing, comfortable and no acute distress Orientation/consciousness: patient oriented x3 Limitations: no limitations HENMT: Head: Yes normal to inspection Ears: hearing grossly normal bilaterally and other (Foreign body noted in right ear canal) General nose exam: Normal external nose present Face and sinus: Yes normal facial exam Mouth: Normal oral and palatal mucosa present Throat: Yes posterior oropharynx normal Eyes: General: appearance normal, both eyes and all related structures Pupils: Equal, round and reactive pupils present Neck: Neck: Yes normal visual inspection Chest: Chest palpation & inspection: normal inspection of the chest Resp: Effort & Inspection: normal respiratory effort Auscultation: clear to auscultation bilaterally Cardio: Rate: regular rate Rhythm: regular rhythm Peripheral pulses: Peripheral pulses 2+ throughout GI: Inspection: Yes normal to inspection Palpation (GI): Soft to palpation and nontender Auscultation: normal bowel sounds Back/Spine/Pelvis: Thoracic/Lumbar Spine: thoracic and lumbar spine normal to inspection Skin: General skin exam: no rashes or lesions noted Neuro: General: patient oriented x3, no focal motor deficits and normal sensation to monofilament Cranial nerves: Yes Equal, round and reactive pupils present Cognition (Neuro): normal cognition Speech: No Abnormal speech present Gait exam (Neuro): Normal gait present Motor exam (neuro): 5/5 motor strength present throughout Extrem: General: Yes normal to inspection Course Course Course Narrative: Residual a Q-tip removed from the right ear. No issues after. Patient tolerated well. Reviewed worrisome signs and symptoms of when to return to the emergency department. Comfortable discharge home. Discharge Plan Discharge Clinical Impression: Foreign body in ear Qualifiers: Encounter type: initial encounter Laterality: right Qualified Code(s): T16.1XXA - Foreign body in right ear, initial encounter Patient Disposition: Home, Self-Care Instructions: Ear Foreign Body (ED) Prescriptions: No Action clozapine 300mg tablet LINGUAL BEDTIME RF: 0 sodium chloride [[place] Saline] 0.65 % aerosol,spray 2 spray intranasal TID Qty: 15 RF: 1 Interventions: ED Discharge Assessment Last Done: 12/30/20 17:25 Discharge Date/Time: 12/30/20 17:28
== END 2020-12-30 17:28 | disposition home or self-care (01) ==
PROVIDERS: Emergency Provider Internal Medicine; PCP Internal Medicine
DX: T16.1XXA Foreign body in right ear, initial encounter (principal); Y93.E8 Activity, other personal hygiene; Y92.019 Unspecified place in single-family (private) house as the place of occurrence of the external cause; Y99.9 Unspecified external cause status
CPT/HCPCS: 99284

== ENCOUNTER 2020-12-31 10:21 | Outpatient (REF) | payer MEDICARE, SELFPAY ==
--- NOTE | ~2020-12-31 | FL_ITS ---
EXAMINATION: FL BARIUM SWALLOW CLINICAL INFORMATION: Dysphagia. Post pneumonectomy. COMPARISON: None TECHNIQUE: Barium swallow examination is performed using fluoroscopic evaluation in addition to multiple fluoroscopic spot views. The patient is imaged both upright and prone and using both thick and thin sulfate along with effervescent granules. FLUOROSCOPY TIME: 3.8 minutes DAP: 27.366 Gycm2 IMAGES: 46 FINDINGS: Oral demonstration of thick barium in upright view there is normal probability of bolus from the oral cavity into a dilated tortuous esophagus without any evidence of obstruction, narrowing or stricture. The entire esophagus lies in the left hemithorax. Patient is post total pneumonectomy. This resulted in the fundus lower in the epigastric region and a migrated rest of the stomach and the pylorus in the left lower hemithorax. On maneuvering the patient in prone Trendelenburg position there is immediate flow visualized within the pylorus and through the pylorus into the duodenum. On oral administration of barium-coated turkey there is normal propagation of bolus from the oral cavity through the esophagus into stomach. No obstruction or stricture seen. FL/FL barium swallow IMPRESSION: Very patulous and dilated esophagus is seen without any obstruction on oral administration of thick barium and barium-coated turkey as solid food. However, the pylorus lies in the lower hemithorax and the fundus in the left epigastric region. Postsurgical malrotation of stomach. Patient is status post total left pneumonectomy.
== END 2020-12-31 10:22 | disposition home or self-care (01) ==
LOC: HO.XRAY 10:21
PROVIDERS: PCP Internal Medicine; Visit Provider Otolaryngology
DX: R13.10 Dysphagia, unspecified (principal); Z98.890 Other specified postprocedural states
CPT/HCPCS: 74220

== ENCOUNTER → 2021-01-09 08:37 | Outpatient (BNVA) | payer MEDICARE, SELFPAY | PROVIDERS: PCP Internal Medicine; Visit Provider Surgery Vascular Surgery | DX: I83.11 Varicose veins of right lower extremity with inflammation (principal) | CPT/HCPCS: 36482 ==

== ENCOUNTER 2021-01-12 08:23 | Outpatient (REF) | payer MEDICARE, SELFPAY ==
--- NOTE | ~2021-01-12 | US_ITS ---
EXAMINATION: US VENOUS ULTRASOUND WITH DOPPLER LOWER EXTREMITY, RIGHT CLINICAL INFORMATION: Status post right leg Venaseal. COMPARISON: None. TECHNIQUE: Ultrasound of the deep veins is performed from the hip to the calf with compression sonography and color and pulse Doppler assessment. Spectral analysis with color-flow imaging is performed. FINDINGS: There is a clot visualized in the right greater saphenous vein approximately 2.93 cm from the superior femoral venous junction. There is normal flow visualized in the right common femoral, superficial femoral, profunda, popliteal and posterior tibial veins consistent with normal patency. Incidental noted is a small lymph node in the right groin measuring 2.0 x 2.4 x 1.0 cm. US/US venous duplex LE RT IMPRESSION: There is a clot visualized in the right greater saphenous vein approximately 2.93 cm from the superior femoral venous junction status post Venaseal procedure.
== END 2021-01-12 08:24 | disposition home or self-care (01) ==
LOC: HO.HMGCX 08:23
PROVIDERS: Visit Provider Surgery Vascular Surgery
DX: M79.604 Pain in right leg (principal); Z98.890 Other specified postprocedural states
CPT/HCPCS: 93971

== ENCOUNTER 2021-01-22 09:47 | Outpatient (REF) | payer MEDICARE, OTHER, SELFPAY ==
[2021-01-22 11:44] LABS: MANUAL DIFF FLAG NO
[2021-01-22 11:49] LABS: Basophils Percent Auto 0.5 % (0-2); Hematocrit 40.2 % (42-52); Hemoglobin 12.8 g/dl (14.0-18.0); Imm Gran Abs Auto 0.08 X10*3/uL (0.00-0.03); Imm Gran Pct Auto 1.4 % (0.0-0.4); Lymphocytes Absolute Auto 0.8 X10*3/uL (1.2-4.9); Lymphocytes Percent Auto 14.5 % (20-40); Mean Corpuscular HGB Conc 31.8 g/dl (31.0-36.0); Mean Corpuscular Hemoglobin 29.6 pg (27.0-33.0); Mean Corpuscular Volume 93.1 fL (80-98); Mean Platelet Volume 9.7 fL (9.4-12.4); Monocytes Absolute Auto 0.5 X10*3/uL (0.1-1.2); Monocytes Percent Auto 8.8 % (2-11); Neut%MD 74.8 %; Neutrophils Absolute Auto 4.3 X10*3/uL (2.0-8.3); Neutrophils Percent Auto 74.8 % (45-73); Platelet Count 252 X10*3/uL (160-400); Red Blood Count 4.32 X10*6/uL (4.60-5.80); Red Cell Distribution Width 12.8 % (11.0-16.0); WBCANC 5.8 X10*3/uL; White Blood Count 5.8 X10*3/uL (4.8-10.8)
== END 2021-01-22 09:48 | disposition home or self-care (01) ==
LOC: HO.LABR 09:47
PROVIDERS: Absent Provider Clinical Nurse Specialist Psychiatric/Mental Health, Adult; PCP Internal Medicine; Visit Provider Surgery Vascular Surgery
DX: I83.12 Varicose veins of left lower extremity with inflammation (principal)
CPT/HCPCS: 36415; 85025; 85048; 99212

== ENCOUNTER → 2021-02-06 10:31 | Outpatient (BNVA) | payer MEDICARE, OTHER, SELFPAY | PROVIDERS: PCP Internal Medicine; Visit Provider Surgery Vascular Surgery | DX: I83.12 Varicose veins of left lower extremity with inflammation (principal) | CPT/HCPCS: 36475 ==

== ENCOUNTER 2021-02-09 10:23 | Outpatient (REF) | payer MEDICARE, OTHER, SELFPAY ==
--- NOTE | ~2021-02-09 | US_ITS ---
EXAMINATION: US VENOUS ULTRASOUND WITH DOPPLER LOWER EXTREMITY, LEFT CLINICAL INFORMATION: Post left RFA COMPARISON: Previous exam December 2020 TECHNIQUE: Ultrasound of the deep veins is performed from the hip to the calf with compression sonography and color and pulse Doppler assessment. Spectral analysis with color-flow imaging is performed. FINDINGS: There is normal venous compression and respiratory variation and augmented flow. The visualized common femoral vein, superficial femoral vein, profunda femoral vein, popliteal vein, and the trifurcation region shows no evidence of deep venous thrombosis. The left greater saphenous vein is closed. There is thrombus seen to 2 cm from the saphenofemoral junction. There is no popliteal fossa cyst. US/US venous duplex LE LT IMPRESSION: No DVT demonstrated in the left lower extremity.
== END 2021-02-09 10:24 | disposition home or self-care (01) ==
LOC: HO.HMGCX 10:23
PROVIDERS: Visit Provider Surgery Vascular Surgery
DX: M79.605 Pain in left leg (principal)
CPT/HCPCS: 93971

== ENCOUNTER 2021-02-11 09:21 | Outpatient (REF) | payer MEDICARE, SELFPAY ==
[2021-02-11 11:24] LABS: MANUAL DIFF FLAG NO
[2021-02-11 11:30] LABS: Glucose Urine UA NEG (NEG); Leukocyte Esterase Urine NEG (NEG); Nitrite Urine NEG (NEG); PH 6.5 (5.0-8.0); Specific Gravity - Urine <= 1.005 (1.005-1.025); Urine Blood NEG (NEG); Urine Ketones NEG (NEG); Urine Protein NEG (NEG-TRACE)
[2021-02-11 11:33] LABS: Appearance Urine CLEAR; Basophils Percent Auto 0.5 % (0-2); Color Urine YELLOW; Hematocrit 39.6 % (42-52); Hemoglobin 12.6 g/dl (14.0-18.0); Imm Gran Abs Auto 0.06 X10*3/uL (0.00-0.03); Imm Gran Pct Auto 0.9 % (0.0-0.4); Lymphocytes Absolute Auto 0.9 X10*3/uL (1.2-4.9); Lymphocytes Percent Auto 14.7 % (20-40); Mean Corpuscular HGB Conc 31.8 g/dl (31.0-36.0); Mean Corpuscular Hemoglobin 29.3 pg (27.0-33.0); Mean Corpuscular Volume 92.1 fL (80-98); Mean Platelet Volume 10.2 fL (9.4-12.4); Monocytes Absolute Auto 0.7 X10*3/uL (0.1-1.2); Monocytes Percent Auto 10.5 % (2-11); Neutrophils Absolute Auto 4.7 X10*3/uL (2.0-8.3); Neutrophils Percent Auto 73.4 % (45-73); Platelet Count 267 X10*3/uL (160-400); Red Cell Distribution Width 13.2 % (11.0-16.0); White Blood Count 6.4 X10*3/uL (4.8-10.8)
[2021-02-11 11:38] LABS: Estimated Average Glucose 114 mg/dL; Hemoglobin A1c % 5.6 %
[2021-02-11 11:52] LABS: Creatinine Urine 22.09 mg/dL; Microalbumin Urine < 5.0 mg/L
[2021-02-11 11:54] LABS: Alanine Aminotransferase 30 U/L (0-40); Albumin Level 4.2 g/dL (3.5-5.0); Alkaline Phosphatase 76 U/L (39-117); Anion Gap 11 (12-20); Aspartate Amino Transferase 21 U/L (5-37); Bilirubin Total 0.5 mg/dL (0.0-1.0); Blood Urea Nitrogen 13 mg/dL (9-16); Calcium 9.5 mg/dL (8.4-10.2); Carbon Dioxide 29 mmol/L (22-29); Chloride 105 mmol/L (96-108); Cholesterol 163 mg/dL; Estimated Glomerular Filt Rate > 60; Glucose Fasting 110 mg/dL (60-99); HDL Cholesterol 68 mg/dL; LDL Cholesterol Calculated 80 mg/dl; Potassium 4.4 mmol/L (3.3-5.1); Sodium 141 mmol/L (135-145); Total Protein 6.4 g/dL (6.5-8.0); Triglycerides 79 mg/dL
[2021-02-11 12:18] LABS: Thyroid Stimulating Hormone 1.94 uIU/mL (0.32-4.0); Vitamin D 25-OH Total 47.5 ng/mL (>30)
== END 2021-02-11 09:22 | disposition home or self-care (01) ==
LOC: HO.HMGCLDS 09:21
PROVIDERS: PCP Internal Medicine; Visit Provider Internal Medicine
DX: C34.92 Malignant neoplasm of unspecified part of left bronchus or lung (principal); E55.9 Vitamin D deficiency, unspecified; R13.10 Dysphagia, unspecified; F20.9 Schizophrenia, unspecified; Z85.21 Personal history of malignant neoplasm of larynx
CPT/HCPCS: 36415; 80053; 80061; 81003; 82043; 82306; 83036; 84443; 85025

== ENCOUNTER → 2021-02-19 09:03 | Outpatient (BNVA) | payer MEDICARE, SELFPAY | PROVIDERS: PCP Internal Medicine; Visit Provider Surgery Vascular Surgery | DX: I83.12 Varicose veins of left lower extremity with inflammation (principal); F17.210 Nicotine dependence, cigarettes, uncomplicated | CPT/HCPCS: 99212 ==

== ENCOUNTER 2021-02-25 09:35 | Outpatient (REF) | payer OTHER, MEDICARE, SELFPAY ==
[2021-02-25 10:32] LABS: MANUAL DIFF FLAG NO
[2021-02-25 10:43] LABS: Basophils Percent Auto 0.3 % (0-2); Hematocrit 38.3 % (42-52); Hemoglobin 12.3 g/dl (14.0-18.0); Imm Gran Abs Auto 0.05 X10*3/uL (0.00-0.03); Imm Gran Pct Auto 0.8 % (0.0-0.4); Lymphocytes Absolute Auto 0.7 X10*3/uL (1.2-4.9); Lymphocytes Percent Auto 11.4 % (20-40); Mean Corpuscular HGB Conc 32.1 g/dl (31.0-36.0); Mean Corpuscular Hemoglobin 29.4 pg (27.0-33.0); Mean Corpuscular Volume 91.6 fL (80-98); Mean Platelet Volume 9.9 fL (9.4-12.4); Monocytes Absolute Auto 0.6 X10*3/uL (0.1-1.2); Monocytes Percent Auto 9.7 % (2-11); Neutrophils Absolute Auto 4.9 X10*3/uL (2.0-8.3); Neutrophils Percent Auto 77.8 % (45-73); Platelet Count 241 X10*3/uL (160-400); Red Blood Count 4.18 X10*6/uL (4.60-5.80); Red Cell Distribution Width 13.4 % (11.0-16.0); White Blood Count 6.3 X10*3/uL (4.8-10.8)
== END 2021-02-25 09:36 | disposition home or self-care (01) ==
LOC: HO.LABR 09:35
PROVIDERS: PCP Internal Medicine; Visit Provider Clinical Nurse Specialist Psychiatric/Mental Health, Adult
DX: Z79.899 Other long term (current) drug therapy (principal)
CPT/HCPCS: 36415; 85025

== ENCOUNTER 2021-03-30 07:02 | Outpatient (REF) | payer OTHER, MEDICARE, SELFPAY ==
[2021-03-30 11:21] LABS: MANUAL DIFF FLAG NO
[2021-03-30 11:50] LABS: Basophils Percent Auto 0.3 % (0-2); Hemoglobin 12.3 g/dl (14.0-18.0); Imm Gran Abs Auto 0.06 X10*3/uL (0.00-0.03); Lymphocytes Absolute Auto 1.3 X10*3/uL (1.2-4.9); Lymphocytes Percent Auto 20.6 % (20-40); Mean Corpuscular HGB Conc 31.5 g/dl (31.0-36.0); Mean Corpuscular Hemoglobin 29.4 pg (27.0-33.0); Mean Corpuscular Volume 93.3 fL (80-98); Mean Platelet Volume 10.2 fL (9.4-12.4); Monocytes Absolute Auto 0.8 X10*3/uL (0.1-1.2); Monocytes Percent Auto 12.7 % (2-11); Neutrophils Absolute Auto 4.1 X10*3/uL (2.0-8.3); Neutrophils Percent Auto 65.4 % (45-73); Platelet Count 238 X10*3/uL (160-400); Red Blood Count 4.18 X10*6/uL (4.60-5.80); Red Cell Distribution Width 13.8 % (11.0-16.0); White Blood Count 6.2 X10*3/uL (4.8-10.8)
== END 2021-03-30 07:03 | disposition home or self-care (01) ==
LOC: HO.HMGCLR 07:02
PROVIDERS: PCP Internal Medicine; Visit Provider Clinical Nurse Specialist Psychiatric/Mental Health, Adult
DX: Z79.899 Other long term (current) drug therapy (principal)
CPT/HCPCS: 36415; 85025

== ENCOUNTER 2021-04-30 07:37 | Outpatient (REF) | payer OTHER, MEDICARE, SELFPAY ==
[2021-04-30 11:16] LABS: MANUAL DIFF FLAG NO
[2021-04-30 11:31] LABS: Basophils Percent Auto 0.5 % (0-2); Hematocrit 40.1 % (42-52); Hemoglobin 12.7 g/dl (14.0-18.0); Imm Gran Abs Auto 0.08 X10*3/uL (0.00-0.03); Imm Gran Pct Auto 1.3 % (0.0-0.4); Lymphocytes Absolute Auto 1.1 X10*3/uL (1.2-4.9); Lymphocytes Percent Auto 17.2 % (20-40); Mean Corpuscular HGB Conc 31.7 g/dl (31.0-36.0); Mean Corpuscular Hemoglobin 29.6 pg (27.0-33.0); Mean Corpuscular Volume 93.5 fL (80-98); Mean Platelet Volume 10.5 fL (9.4-12.4); Monocytes Absolute Auto 0.7 X10*3/uL (0.1-1.2); Monocytes Percent Auto 10.4 % (2-11); Neut%MD 70.6 %; Neutrophils Absolute Auto 4.5 X10*3/uL (2.0-8.3); Neutrophils Percent Auto 70.6 % (45-73); Platelet Count 238 X10*3/uL (160-400); Red Blood Count 4.29 X10*6/uL (4.60-5.80); Red Cell Distribution Width 13.8 % (11.0-16.0); WBCANC 6.4 X10*3/uL; White Blood Count 6.4 X10*3/uL (4.8-10.8)
== END 2021-04-30 07:38 | disposition home or self-care (01) ==
LOC: HO.HMGCLR 07:37
PROVIDERS: PCP Internal Medicine; Visit Provider Clinical Nurse Specialist Psychiatric/Mental Health, Adult
DX: Z79.899 Other long term (current) drug therapy (principal)
CPT/HCPCS: 36415; 85025

== ENCOUNTER → 2021-05-21 09:07 | Outpatient (BNVA) | payer OTHER, MEDICARE, SELFPAY | PROVIDERS: PCP Internal Medicine; Visit Provider Surgery Vascular Surgery | DX: I83.12 Varicose veins of left lower extremity with inflammation (principal) | CPT/HCPCS: 99212 ==

== ENCOUNTER 2021-05-26 07:14 | Outpatient (REF) | payer OTHER, MEDICARE, SELFPAY ==
[2021-05-26 11:29] LABS: MANUAL DIFF FLAG NO
[2021-05-26 11:47] LABS: Basophils Percent Auto 0.3 % (0-2); Hemoglobin 12.6 g/dl (14.0-18.0); Imm Gran Abs Auto 0.08 X10*3/uL (0.00-0.03); Imm Gran Pct Auto 1.3 % (0.0-0.4); Lymphocytes Absolute Auto 1.1 X10*3/uL (1.2-4.9); Lymphocytes Percent Auto 17.3 % (20-40); Mean Corpuscular HGB Conc 31.5 g/dl (31.0-36.0); Mean Corpuscular Hemoglobin 29.4 pg (27.0-33.0); Mean Corpuscular Volume 93.2 fL (80-98); Mean Platelet Volume 10.7 fL (9.4-12.4); Monocytes Absolute Auto 0.6 X10*3/uL (0.1-1.2); Monocytes Percent Auto 10.1 % (2-11); Neutrophils Absolute Auto 4.4 X10*3/uL (2.0-8.3); Platelet Count 245 X10*3/uL (160-400); Red Blood Count 4.29 X10*6/uL (4.60-5.80); Red Cell Distribution Width 13.4 % (11.0-16.0); WBCANC 6.1 X10*3/uL; White Blood Count 6.1 X10*3/uL (4.8-10.8)
== END 2021-05-26 07:15 | disposition home or self-care (01) ==
LOC: HO.HMGCLR 07:14
PROVIDERS: PCP Internal Medicine; Visit Provider Clinical Nurse Specialist Psychiatric/Mental Health, Adult
DX: Z79.899 Other long term (current) drug therapy (principal)
CPT/HCPCS: 36415; 85025

== ENCOUNTER 2021-06-10 12:20 | Outpatient (REF) | payer MEDICARE, SELFPAY ==
[2021-06-10 14:53] LABS: PSA,Total (Free>4and<10) 16.64 ng/mL (0.00-4.00)
== END 2021-06-10 12:21 | disposition home or self-care (01) ==
LOC: HO.HMGCLDS 12:20
PROVIDERS: PCP Internal Medicine; Visit Provider Internal Medicine
DX: Z12.5 Encounter for screening for malignant neoplasm of prostate (principal)
CPT/HCPCS: 36415; 84153

== ENCOUNTER → 2021-06-12 10:06 | Outpatient (BNVA) | payer MEDICARE, SELFPAY | PROVIDERS: PCP Internal Medicine; Visit Provider Surgery Vascular Surgery | DX: I83.12 Varicose veins of left lower extremity with inflammation (principal) | CPT/HCPCS: 36475 ==

== ENCOUNTER 2021-06-15 09:10 | Outpatient (REF) | payer MEDICARE, SELFPAY ==
--- NOTE | ~2021-06-15 | US_ITS ---
EXAMINATION: US VENOUS ULTRASOUND WITH DOPPLER LOWER EXTREMITY, LEFT CLINICAL INFORMATION: History of radiofrequency ablation left greater saphenous vein COMPARISON: 02/09/2021 TECHNIQUE: Ultrasound of the deep veins is performed from the hip to the calf with compression sonography and color and pulse Doppler assessment. Spectral analysis with color-flow imaging is performed. FINDINGS: The common femoral vein is compressible and exhibits a normal phasic waveform; this suggests that the iliac veins are widely patent above. Within the proximal thigh, the visualized profunda femoris vein is normal. The greater saphenous vein is dilated/thrombosed to within 2.5 cm from the saphenofemoral junction. Superficial femoral vein is normal in the proximal, mid and distal thigh. Popliteal vein is normal to the level of the trifurcation. On compression stevenson scale and color Doppler images, the visualized posterior tibial and peroneal veins are grossly patent. No evidence of Cline's cyst. US/US venous duplex LE IMPRESSION: * No evidence of deep vein thrombosis in the left lower extremity. * Again noted is the ablated/thrombosed greater saphenous vein, without extension into the saphenofemoral junction.
== END 2021-06-15 09:11 | disposition home or self-care (01) ==
LOC: HO.US 09:10
PROVIDERS: PCP Internal Medicine; Visit Provider Surgery Vascular Surgery
DX: M79.605 Pain in left leg (principal)
CPT/HCPCS: 93971

== ENCOUNTER 2021-06-23 07:55 | Outpatient (REF) | payer MEDICARE, SELFPAY ==
[2021-06-23 11:26] LABS: MANUAL DIFF FLAG NO
[2021-06-23 11:32] LABS: Basophils Percent Auto 0.4 % (0-2); Hematocrit 41.3 % (42-52); Hemoglobin 13.2 g/dl (14.0-18.0); Imm Gran Abs Auto 0.05 X10*3/uL (0.00-0.03); Imm Gran Pct Auto 0.9 % (0.0-0.4); Mean Corpuscular Hemoglobin 29.6 pg (27.0-33.0); Mean Corpuscular Volume 92.6 fL (80-98); Mean Platelet Volume 10.8 fL (9.4-12.4); Monocytes Absolute Auto 0.5 X10*3/uL (0.1-1.2); Monocytes Percent Auto 9.7 % (2-11); Platelet Count 249 X10*3/uL (160-400); Red Blood Count 4.46 X10*6/uL (4.60-5.80); Red Cell Distribution Width 13.3 % (11.0-16.0); White Blood Count 5.6 X10*3/uL (4.8-10.8)
== END 2021-06-23 07:56 | disposition home or self-care (01) ==
LOC: HO.HMGCLR 07:55
PROVIDERS: PCP Internal Medicine; Visit Provider Clinical Nurse Specialist Psychiatric/Mental Health, Adult
DX: Z79.899 Other long term (current) drug therapy (principal)
CPT/HCPCS: 36415; 85025

== ENCOUNTER → 2021-06-25 09:52 | Outpatient (BNVA) | payer MEDICARE, SELFPAY | PROVIDERS: PCP Internal Medicine; Visit Provider Surgery Vascular Surgery | DX: I83.12 Varicose veins of left lower extremity with inflammation (principal) | CPT/HCPCS: 99212 ==

== ENCOUNTER 2021-07-12 01:15 | Emergency (ER) | payer MEDICARE, SELFPAY ==
--- NOTE | ~2021-07-12 | XR_ITS ---
EXAMINATION: XR HIP, LEFT CLINICAL INFORMATION: Pain. No trauma. COMPARISON: None TECHNIQUE: Two views of the left hip. Frontal view of the pelvis. FINDINGS: No fracture or dislocation. The hips are well aligned. Joint spaces are maintained. The pelvic rim is intact. The sacroiliac joints and pubic symphysis are intact. Normal bowel gas pattern. XR/XR hip LT w PEL1V IMPRESSION: Unremarkable appearance of the pelvis/left hip.
[2021-07-12 01:21] VITALS: BP 136/67; PULSE 85; RESP 16; TEMP 36.1; O2SAT 100; BMI 24.7
--- NOTE | 2021-07-12 02:03 | ED_ITS ---
HPI - General Adult General Chief complaint: Extremity Injury, Lower Stated complaint: Hip pain Time Seen by Provider: 07/12/21 01:36 Source: patient Mode of arrival: ambulatory History of Present Illness HPI narrative: 66-year-old male with presentation for left lower back/hip pain after doing housework earlier in the day and otherwise denies trauma. Patient denies any scrotal/testicular pain for urinary pain/burning/frequency. Patient denies any fever, chills, nausea, vomiting, diarrhea. Related Data Home Medications Medication Instructions Recorded Confirmed clozapine 300mg LINGUAL BEDTIME 07/10/20 07/11/20 ipratropium 0.5 mg-albuterol 3 mg ml INHALATION 07/17/20 (2.5 mg base)/3 mL nebulization soln cholecalciferol (vitamin D3) 10 10 mcg PO DAILY 12/16/20 mcg (400 unit) capsule ciprofloxacin HCl 500 mg tablet 500 mg PO BID 06/25/21 Previous Rx's Medication Instructions Recorded sodium chloride 0.65 % nasal spray 2 spray INTRANASAL TID #15 ml 11/12/20 aerosol (Mcfarlan Saline) Allergies Allergy/AdvReac Type Severity Reaction Status Date / Time No Known Allergies Allergy Verified 06/25/21 09:56 Review of Systems Review of Systems: Pertinent positives and negatives as stated in HPI 10 point review of systems is otherwise negative. 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 Mother No problems noted. Brother No problems noted. Brother No problems noted. Social History Social History Alcohol intake: never Years Smoked: 33 yrs Advance Directives: No Physical Exam Vital Signs: Vital Signs: Last Vital Signs Temp 97.0 F 07/12/21 01:21 Pulse 85 07/12/21 01:21 Resp 16 07/12/21 01:21 BP 136/67 07/12/21 01:21 Pulse Ox 100 07/12/21 01:21 Body Mass Index 24.7 VITAL SIGNS: Reviewed. GENERAL: Well developed, well nourished, in no acute distress. HEAD: Normocephalic/atraumatic EYES: PERRLA, EOMI OROPHARYNX: no oral lesions noted, posterior pharynx clear NECK: Supple, no adenopathy LUNGS: Normal breath sounds. No adventitious sounds or accessory muscle use. SpO2<100> CARDIOVASCULAR: Regular rate and rhythm without noted murmurs ABDOMEN: Soft, non-tender, non-distended with bowel sounds. LEFT LOWER EXTREMITY: No deformities noted, full range of motion at the hip/knee/ankle, palpation over the lower back yield tenderness, but this is absent on palpation over the iliac crest. SKIN: Inspection of the skin reveals no rashes NEUROLOGIC: Alert and oriented x 4. Strength and sensation to light touch were grossly intact x 4. Course Course Course Narrative: 66-year-old male with history and clinical presentation consistent with muscle strain and possible spasm. Review of all investigations negative for acute findings and on reassessment patient has had complete resolution of his discomfort. Discharge Plan Discharge Clinical Impression: Muscle spasm, Muscle strain Patient Disposition: Home, Self-Care Instructions: Muscle Spasm (ED), Muscle Strain (ED) Additional Instructions: 1. Tylenol 1000 mg, orally, every 6 hours as needed for pain control. Do not exceed 4000 mg within 24 hours. 2. Ibuprofen 400 mg, orally with milk or food, every 6 hours as needed for pain control. 3. Lidocaine patch, these are available [id number] at every [facility], namie is [employer], apply to area of maximal tenderness as directed on the outside packaging. 4. Follow-up with your primary care provider Tuesday morning for re-evaluation. Return to the ER for acute worsening of symptoms. Prescriptions: No Action clozapine 300mg tablet LINGUAL BEDTIME RF: 0 sodium chloride [Mcfarlan Saline] 0.65 % aerosol,spray 2 spray intranasal TID Qty: 15 RF: 1
[2021-07-12] MEDS: Acetaminophen 325 MG TABLET 975 MG PO (02:37)
[2021-07-12] MEDS: Ketorolac Tromethamine 15 MG/ML VIAL IM (02:41)
[2021-07-12] MEDS: Lidocaine 4 % Patch ADH..PATCH 1 PATCH TRANSDERMA (02:42)
== END 2021-07-12 03:48 | disposition home or self-care (01) ==
PROVIDERS: Emergency Provider Student in an Organized Health Care Education/Training Program; PCP Internal Medicine
DX: T14.8XXA Other injury of unspecified body region, initial encounter (principal); M62.838 Other muscle spasm; J44.9 Chronic obstructive pulmonary disease, unspecified; X58.XXXA Exposure to other specified factors, initial encounter; Y93.9 Activity, unspecified; Y92.9 Unspecified place or not applicable; Y99.9 Unspecified external cause status
CPT/HCPCS: 73502; 96372; 99283; 99284; J1885

== ENCOUNTER 2021-07-28 08:10 | Outpatient (REF) | payer OTHER, SELFPAY ==
[2021-07-28 11:19] LABS: MANUAL DIFF FLAG NO
[2021-07-28 11:23] LABS: Basophils Percent Auto 0.4 % (0-2); Hematocrit 38.7 % (42.0-52.0); Hemoglobin 12.2 g/dl (14.0-18.0); Imm Gran Abs Auto 0.05 X10*3/uL (0.00-0.03); Imm Gran Pct Auto 0.6 % (0.0-0.4); Lymphocytes Absolute Auto 0.9 X10*3/uL (1.2-4.9); Lymphocytes Percent Auto 10.9 % (20-40); Mean Corpuscular HGB Conc 31.5 g/dl (31.0-36.0); Mean Corpuscular Hemoglobin 29.3 pg (27.0-33.0); Mean Corpuscular Volume 92.8 fL (80.0-98.0); Mean Platelet Volume 10.6 fL (9.4-12.4); Monocytes Absolute Auto 0.6 X10*3/uL (0.1-1.2); Monocytes Percent Auto 7.3 % (2-11); Neutrophils Absolute Auto 6.3 x10*3/uL (2.0-8.3); Neutrophils Percent Auto 80.8 % (45-73); Platelet Count 240 X10*3/uL (160-400); Red Blood Count 4.17 X10*6/uL (4.60-5.80); Red Cell Distribution Width 14.4 % (11.0-16.0); White Blood Count 7.8 X10*3/uL (4.8-10.8)
== END 2021-07-28 08:11 | disposition home or self-care (01) ==
LOC: HO.HMGCLR 08:10
PROVIDERS: PCP Internal Medicine; Visit Provider Clinical Nurse Specialist Psychiatric/Mental Health, Adult
DX: Z79.899 Other long term (current) drug therapy (principal)
CPT/HCPCS: 36415; 85025

== ENCOUNTER 2021-07-31 14:32 | Outpatient (REF) | payer MEDICARE, OTHER, SELFPAY ==
--- NOTE | ~2021-07-31 | XR_ITS ---
EXAMINATION: XR CHEST CLINICAL INFORMATION: Squamous cell cancer left lung COMPARISON: Previous chest x-ray November 2020 TECHNIQUE: 2 views of the chest were obtained. FINDINGS: There are stable postoperative changes from left pneumonectomy with shift of the mediastinal structures to the left, elevation of the left hemidiaphragm and soft tissue opacification and some air-fluid levels in the left chest.. The right lung is clear. There is no right pleural effusion. There is no pneumothorax. There are mild degenerative changes of the spine. Bony structures are otherwise unremarkable. XR/XR chest 2V IMPRESSION: Stable postsurgical changes from left pneumonectomy. No evidence for acute disease in the chest.
== END 2021-07-31 14:33 | disposition home or self-care (01) ==
LOC: HO.HMGCX 14:32
PROVIDERS: PCP Internal Medicine; Visit Provider Internal Medicine
DX: C34.92 Malignant neoplasm of unspecified part of left bronchus or lung (principal)
CPT/HCPCS: 71046

== ENCOUNTER 2021-08-12 07:59 | Outpatient (REF) | payer MEDICARE, SELFPAY ==
--- NOTE | ~2021-08-12 | CT_ITS ---
EXAMINATION: CT CHEST WITHOUT CONTRAST CLINICAL INFORMATION: Lung cancer COMPARISON: Previous chest CT scans most recent May 2020 TECHNIQUE: Multidetector volumetric CT imaging of the chest was done. Axial MIP volume rendering provided. Sagittal and coronal reformatted images were obtained. This CT examination was performed using dose optimization techniques as appropriate, variously including the following: *Automated exposure control *Adjustment of mA and/or kV according to patient size (this includes techniques or standardized protocols for targeted exams where dose is matched to indication/reason for exam; i.e. extremities or head) *Use of iterative reconstruction technique DLP: 185 mGy-cm FINDINGS: LUNGS: There postsurgical changes following left pneumonectomy. There is a 2 mm peripheral right upper lobe nodule axial image 176 series 7 that is stable. The lungs are otherwise clear. The previously identified groundglass attenuation right lower lobe nodules May 2020 exam are no longer seen.. MEDIASTINUM: The ascending thoracic aorta is upper normal in size measuring 4 cm. The aortic arch and descending thoracic aorta are normal in caliber. The heart does not appear enlarged. There is a trace pericardial effusion. There are no enlarged hilar or mediastinal lymph nodes. The thoracic esophagus appears slightly dilated and filled with air. These findings are similar to previous exams. PLEURA: There is no pleural effusion. No pleural mass or thickening. AXILLA: No lymphadenopathy. UPPER ABDOMEN: There is a stranding of the small bowel mesentery similar to previous exam. The previously identified left renal stone is no longer seen. OSSEOUS STRUCTURES: There are degenerative changes of the spine. CT/CT chest wo con IMPRESSION: Stable exam post left pneumonectomy. Stable small solitary 2 mm right upper lobe nodule. Previously identified groundglass attenuation nodules in the base of the right lower lobe are no longer seen. Slightly dilated air-filled esophagus. This is similar to previous exam. Upper normal-size ascending thoracic aorta. Fleischner guidelines were followed.
== END 2021-08-12 08:00 | disposition home or self-care (01) ==
LOC: HO.CT 07:59
PROVIDERS: PCP Internal Medicine; Visit Provider Surgery
DX: C34.92 Malignant neoplasm of unspecified part of left bronchus or lung (principal)
CPT/HCPCS: 71250

== ENCOUNTER → 2021-08-13 10:52 | Outpatient (REF) | payer MEDICARE, OTHER, SELFPAY ==
--- NOTE | ~2021-08-13 | NM_ITS ---
EXAMINATION: NM BONE SCAN OF THE WHOLE BODY CLINICAL INFORMATION: Malignant neoplasm of prostate. COMPARISON: No previous bone scan is available for comparison. Radiographs of the chest dated 07/31/2021 and the left hip and pelvis dated 1114 are available for comparison. CT scan of the chest dated 08/12/2021 is also available for comparison. TECHNIQUE: Multiple gamma scintillation camera images of the whole body were performed 2.5 hours following the intravenous administration of 26 mCi Tc-99m MDP. FINDINGS: In the head, no significant abnormalities are present. In the thoracic cage and upper extremities, there is minimally increased activity in the acromioclavicular and sternoclavicular joints bilaterally and faintly at the costochondral junctions of both first ribs and the sternomanubrial junction. Very faint, barely perceptible foci of increased activity are suggested in several adjacent right anterolateral ribs, visualized only on the CARSON spot view and likely involving the right fifth, sixth and eighth ribs. There is also a defect laterally in the anterolateral aspect of the left fifth rib, and this corresponds to postsurgical changes in this rib on the 08/12/2021 CT scan.. In the spine, there is mildly increased activity anteriorly in the lower cervical spine In the pelvis, no significant abnormalities are present. In the lower extremities, there is mildly increased activity in the patellar compartments of both knees. No other definite bony abnormalities are noted. The urinary bladder and faint visualization of both kidneys are noted. NM/NM bone scan whole body IMPRESSION: A few mild nonspecific abnormalities are noted as described above and these are all likely arthritic or traumatic in etiology. None of these abnormalities is strongly suspicious for metastatic disease.
== END ==
LOC: HO.NUCMED 10:52
PROVIDERS: PCP Internal Medicine; Visit Provider Urology
DX: C61 Malignant neoplasm of prostate (principal)
CPT/HCPCS: 78306; A9503

== ENCOUNTER → 2021-08-14 10:08 | Outpatient (BNVA) | payer MEDICARE, SELFPAY | PROVIDERS: PCP Internal Medicine; Visit Provider Surgery | DX: J98.6 Disorders of diaphragm (principal); Z79.899 Other long term (current) drug therapy; Z87.891 Personal history of nicotine dependence; Z85.118 Personal history of other malignant neoplasm of bronchus and lung | CPT/HCPCS: 99212 ==

== ENCOUNTER 2021-08-27 08:44 | Outpatient (REF) | payer MEDICARE, SELFPAY ==
[2021-08-27 11:06] LABS: MANUAL DIFF FLAG NO
[2021-08-27 11:09] LABS: Basophils Percent Auto 0.3 % (0-2); Hematocrit 37.2 % (42.0-52.0); Hemoglobin 11.7 g/dl (14.0-18.0); Imm Gran Abs Auto 0.04 X10*3/uL (0.00-0.03); Imm Gran Pct Auto 0.7 % (0.0-0.4); Lymphocytes Absolute Auto 0.9 X10*3/uL (1.2-4.9); Lymphocytes Percent Auto 14.9 % (20-40); Mean Corpuscular HGB Conc 31.5 g/dl (31.0-36.0); Mean Corpuscular Hemoglobin 29.8 pg (27.0-33.0); Mean Corpuscular Volume 94.7 fL (80.0-98.0); Mean Platelet Volume 10.2 fL (9.4-12.4); Monocytes Absolute Auto 0.6 X10*3/uL (0.1-1.2); Monocytes Percent Auto 9.4 % (2-11); Neutrophils Absolute Auto 4.4 x10*3/uL (2.0-8.3); Neutrophils Percent Auto 74.7 % (45-73); Platelet Count 230 X10*3/uL (160-400); Red Blood Count 3.93 X10*6/uL (4.60-5.80); Red Cell Distribution Width 14.5 % (11.0-16.0); White Blood Count 5.8 X10*3/uL (4.8-10.8)
== END 2021-08-27 08:45 | disposition home or self-care (01) ==
LOC: HO.HMGCLDS 08:44
PROVIDERS: PCP Internal Medicine; Visit Provider Clinical Nurse Specialist Psychiatric/Mental Health, Adult
DX: Z79.899 Other long term (current) drug therapy (principal)
CPT/HCPCS: 36415; 85025

== ENCOUNTER 2021-09-16 14:42 | Outpatient (REF) | payer MEDICARE, SELFPAY ==
[2021-09-16 17:02] LABS: Blood Urea Nitrogen 24 mg/dL (9-16); Estimated Glomerular Filt Rate > 60
== END 2021-09-16 14:43 | disposition home or self-care (01) ==
LOC: HO.HMGCLDS 14:42
PROVIDERS: PCP Internal Medicine; Visit Provider Urology
DX: Z79.899 Other long term (current) drug therapy (principal)
CPT/HCPCS: 36415; 82565; 84520

== ENCOUNTER 2021-09-21 09:16 | Outpatient (REF) | payer MEDICARE, SELFPAY ==
--- NOTE | ~2021-09-21 | CT_ITS ---
EXAMINATION: CT ABDOMEN AND PELVIS WITH CONTRAST CLINICAL INFORMATION: Lung cancer and prostate cancer. COMPARISON: Previous head CT October 2013 and bone scan July 2021. TECHNIQUE: Multidetector volumetric images were obtained from the superior aspect of the liver through the pubic symphysis following administration 85 mL of Omnipaque 350 intravenous contrast. Sagittal and coronal reformatted images were obtained on the technologist's workstation. Oral contrast: Yes This CT examination was performed using dose optimization techniques as appropriate, variously including the following: *Automated exposure control *Adjustment of mA and/or kV according to patient size (this includes techniques or standardized protocols for targeted exams where dose is matched to indication/reason for exam; i.e. extremities or head) *Use of iterative reconstruction technique DLP: 322 mGy-cm FINDINGS: LUNG BASES: The right lung base is clear. There are postoperative surgical changes from left pneumonectomy. LIVER, GALLBLADDER, AND BILIARY TREE: The liver is normal in size, shape, and attenuation. There are several small low-attenuation liver lesions. These are difficult to characterize due to small size but probably represent cysts. The largest measure 5 mm in the left lobe axial image 11 and 4 mm in the peripheral or subcapsular right lobe axial image 20. The gallbladder is contracted. There is no biliary duct dilatation. PANCREAS: Unremarkable. SPLEEN: Unremarkable. ADRENAL GLANDS: Unremarkable. KIDNEYS AND URETERS: There is a 1 cm low-attenuation lesion in the upper pole of the left kidney, probably representing a cyst. No imaging follow-up. The kidneys are otherwise unremarkable. BLADDER: The prostate gland protrudes into the base of the bladder. There is abnormal soft tissue seen at the base of the bladder probably related to lobulated contour of the prostate gland. GASTROINTESTINAL TRACT: There is stool throughout the colon suggestive of constipation. The small and large bowel are otherwise unremarkable. The appendix is unremarkable. ABDOMINAL WALL: There are 2 subcutaneous nodules measuring 5 mm the left upper quadrant 8 mm in the left lower quadrant. These are new from previous PET/CT scan October 2013. There is a partially calcified subcutaneous nodule in the right buttock probably representing an injection granuloma. This is unchanged. LYMPH NODES: Normal. VASCULAR: Unremarkable. PELVIC VISCERA: Prostate gland is slightly enlarged measuring 4 x 4 by 4.8 cm protrudes into the base of the bladder. No pelvic mass is seen. OSSEOUS STRUCTURES: Spondylolysis and spondylolisthesis at L5-S1. There are mild degenerative changes of the spine. CT/CT abdomen pelvis w con IMPRESSION: Enlarged prostate gland that protrudes into the base of the bladder. No pelvic mass or adenopathy. Constipation. Probable liver and left renal cysts. Two new subcutaneous nodules in the left abdominal wall. This may be related to subcutaneous injection sites. Neoplastic process cannot be excluded. This would be amenable to ultrasound-guided aspiration clinically indicated. Constipation. Fleischner guidelines were followed.
[2021-09-21] MEDS: iohexoL 350 MG/ML 100 ML INFUS..BTL IV (09:52)
== END 2021-09-21 09:17 | disposition home or self-care (01) ==
LOC: HO.CT 09:16
PROVIDERS: Visit Provider Urology
DX: C34.92 Malignant neoplasm of unspecified part of left bronchus or lung (principal); C61 Malignant neoplasm of prostate; K59.00 Constipation, unspecified; Z90.2 Acquired absence of lung [part of]
CPT/HCPCS: 74177; Q9967

== ENCOUNTER → 2021-09-22 09:50 | Outpatient (BNVA) | payer MEDICARE, SELFPAY | PROVIDERS: PCP Internal Medicine; Visit Provider Surgery Vascular Surgery | DX: I83.12 Varicose veins of left lower extremity with inflammation (principal) | CPT/HCPCS: 99212 ==

== ENCOUNTER → 2021-09-29 08:53 | Outpatient (BNVA) | payer MEDICARE, SELFPAY | PROVIDERS: PCP Internal Medicine; Visit Provider Nurse Practitioner Family | DX: Z01.818 Encounter for other preprocedural examination (principal) | CPT/HCPCS: 99202 ==

== ENCOUNTER 2021-09-30 07:37 | Outpatient (REF) | payer MEDICARE, SELFPAY ==
[2021-09-30 11:30] LABS: MANUAL DIFF FLAG NO
[2021-09-30 11:40] LABS: Basophils Percent Auto 0.4 % (0-2); Hemoglobin 11.6 g/dl (14.0-18.0); Imm Gran Abs Auto 0.04 X10*3/uL (0.00-0.03); Imm Gran Pct Auto 0.8 % (0.0-0.4); Lymphocytes Percent Auto 18.3 % (20-40); Mean Corpuscular HGB Conc 31.4 g/dl (31.0-36.0); Mean Corpuscular Volume 95.6 fL (80.0-98.0); Monocytes Absolute Auto 0.6 X10*3/uL (0.1-1.2); Monocytes Percent Auto 10.8 % (2-11); Neutrophils Absolute Auto 3.7 x10*3/uL (2.0-8.3); Neutrophils Percent Auto 69.7 % (45-73); Platelet Count 239 X10*3/uL (160-400); Red Blood Count 3.87 X10*6/uL (4.60-5.80); Red Cell Distribution Width 14.6 % (11.0-16.0); White Blood Count 5.3 X10*3/uL (4.8-10.8)
== END 2021-09-30 07:38 | disposition home or self-care (01) ==
LOC: HO.HMGCLR 07:37
PROVIDERS: Visit Provider Clinical Nurse Specialist Psychiatric/Mental Health, Adult
DX: Z79.899 Other long term (current) drug therapy (principal)
CPT/HCPCS: 36415; 85025

== ENCOUNTER → 2021-10-13 08:36 | Outpatient (BNVA) | payer MEDICARE, SELFPAY | PROVIDERS: PCP Internal Medicine; Visit Provider Surgery | DX: R22.2 Localized swelling, mass and lump, trunk (principal); R22.32 Localized swelling, mass and lump, left upper limb; R22.31 Localized swelling, mass and lump, right upper limb | CPT/HCPCS: 99202 ==

== ENCOUNTER 2021-11-27 09:50 | Outpatient (REF) | payer OTHER, SELFPAY ==
[2021-11-27 10:14] LABS: MANUAL DIFF FLAG NO
[2021-11-27 10:24] LABS: Basophils Percent Auto 0.4 % (0-2); Eosinophils Percent Auto 0.1 % (0-4); Hematocrit 37.9 % (42.0-52.0); Hemoglobin 12.1 g/dl (14.0-18.0); Imm Gran Abs Auto 0.06 X10*3/uL (0.00-0.03); Imm Gran Pct Auto 0.8 % (0.0-0.4); Lymphocytes Absolute Auto 0.9 X10*3/uL (1.2-4.9); Lymphocytes Percent Auto 11.1 % (20-40); Mean Corpuscular HGB Conc 31.9 g/dl (31.0-36.0); Monocytes Absolute Auto 1.1 X10*3/uL (0.1-1.2); Monocytes Percent Auto 13.4 % (2-11); Neutrophils Absolute Auto 5.9 x10*3/uL (2.0-8.3); Neutrophils Percent Auto 74.2 % (45-73); Platelet Count 319 X10*3/uL (160-400); Red Blood Count 4.03 X10*6/uL (4.60-5.80); Red Cell Distribution Width 12.7 % (11.0-16.0)
== END 2021-11-27 09:51 | disposition home or self-care (01) ==
LOC: HO.LABR 09:50
PROVIDERS: PCP Internal Medicine; Visit Provider Clinical Nurse Specialist Psychiatric/Mental Health, Adult
DX: Z79.899 Other long term (current) drug therapy (principal)
CPT/HCPCS: 36415; 85025

== ENCOUNTER 2022-01-02 12:35 | Outpatient (REF) | payer OTHER, SELFPAY ==
[2022-01-02 13:13] LABS: MANUAL DIFF FLAG NO
[2022-01-02 13:32] LABS: Basophils Percent Auto 0.3 % (0-2); Eosinophils Percent Auto 0.3 % (0-4); Hematocrit 39.4 % (42.0-52.0); Hemoglobin 12.5 g/dl (14.0-18.0); Imm Gran Abs Auto 0.02 X10*3/uL (0.00-0.03); Imm Gran Pct Auto 0.3 % (0.0-0.4); Lymphocytes Absolute Auto 0.9 X10*3/uL (1.2-4.9); Lymphocytes Percent Auto 13.9 % (20-40); Mean Corpuscular HGB Conc 31.7 g/dl (31.0-36.0); Mean Corpuscular Volume 91.4 fL (80.0-98.0); Mean Platelet Volume 9.8 fL (9.4-12.4); Monocytes Absolute Auto 0.7 X10*3/uL (0.1-1.2); Monocytes Percent Auto 10.9 % (2-11); Neutrophils Percent Auto 74.3 % (45-73); Platelet Count 272 X10*3/uL (160-400); Red Blood Count 4.31 X10*6/uL (4.60-5.80); Red Cell Distribution Width 13.2 % (11.0-16.0); White Blood Count 6.8 X10*3/uL (4.8-10.8)
== END 2022-01-02 12:36 | disposition home or self-care (01) ==
LOC: HO.HMGCLDS 12:35
PROVIDERS: PCP Internal Medicine; Visit Provider Clinical Nurse Specialist Psychiatric/Mental Health, Adult
DX: Z79.899 Other long term (current) drug therapy (principal)
CPT/HCPCS: 36415; 85025

== ENCOUNTER 2022-01-28 08:57 | Outpatient (REF) | payer OTHER, SELFPAY ==
[2022-01-28 09:13] LABS: MANUAL DIFF FLAG NO
[2022-01-28 09:45] LABS: Basophils Percent Auto 0.4 % (0-2); Hematocrit 41.6 % (42.0-52.0); Hemoglobin 13.4 g/dl (14.0-18.0); Imm Gran Abs Auto 0.02 X10*3/uL (0.00-0.03); Imm Gran Pct Auto 0.3 % (0.0-0.4); Lymphocytes Absolute Auto 0.8 X10*3/uL (1.2-4.9); Lymphocytes Percent Auto 11.2 % (20-40); Mean Corpuscular HGB Conc 32.2 g/dl (31.0-36.0); Mean Corpuscular Hemoglobin 29.2 pg (27.0-33.0); Mean Corpuscular Volume 90.6 fL (80.0-98.0); Mean Platelet Volume 9.8 fL (9.4-12.4); Monocytes Absolute Auto 0.6 X10*3/uL (0.1-1.2); Monocytes Percent Auto 8.1 % (2-11); Neutrophils Absolute Auto 5.4 x10*3/uL (2.0-8.3); Platelet Count 258 X10*3/uL (160-400); Red Blood Count 4.59 X10*6/uL (4.60-5.80); Red Cell Distribution Width 13.4 % (11.0-16.0); White Blood Count 6.8 X10*3/uL (4.8-10.8)
[2022-02-04 00:11] LABS: Clozapine (Clozaril) 180 mcg/L; Norclozapine 100 mcg/L (25-400)
== END 2022-01-28 08:58 | disposition home or self-care (01) ==
LOC: HO.LAB 08:57
PROVIDERS: PCP Internal Medicine; Visit Provider Clinical Nurse Specialist Psychiatric/Mental Health, Adult
DX: Z79.899 Other long term (current) drug therapy (principal)
CPT/HCPCS: 36415; 80159; 85025

== ENCOUNTER 2022-02-26 10:08 | Outpatient (REF) | payer OTHER, SELFPAY ==
[2022-02-26 10:23] LABS: MANUAL DIFF FLAG NO
[2022-02-26 10:49] LABS: Basophils Percent Auto 0.5 % (0-2); Eosinophils Percent Auto 0.2 % (0-4); Hematocrit 42.6 % (42.0-52.0); Hemoglobin 13.6 g/dl (14.0-18.0); Imm Gran Abs Auto 0.03 X10*3/uL (0.00-0.03); Imm Gran Pct Auto 0.5 % (0.0-0.4); Lymphocytes Absolute Auto 1.1 X10*3/uL (1.2-4.9); Lymphocytes Percent Auto 17.1 % (20-40); Mean Corpuscular HGB Conc 31.9 g/dl (31.0-36.0); Mean Corpuscular Hemoglobin 28.8 pg (27.0-33.0); Mean Corpuscular Volume 90.1 fL (80.0-98.0); Mean Platelet Volume 9.5 fL (9.4-12.4); Monocytes Absolute Auto 0.7 X10*3/uL (0.1-1.2); Neutrophils Absolute Auto 4.5 x10*3/uL (2.0-8.3); Neutrophils Percent Auto 70.7 % (45-73); Platelet Count 270 X10*3/uL (160-400); Red Blood Count 4.73 X10*6/uL (4.60-5.80); Red Cell Distribution Width 14.2 % (11.0-16.0); White Blood Count 6.4 X10*3/uL (4.8-10.8)
== END 2022-02-26 10:09 | disposition home or self-care (01) ==
LOC: HO.LAB 10:08
PROVIDERS: PCP Internal Medicine; Visit Provider Clinical Nurse Specialist Psychiatric/Mental Health, Adult
DX: Z79.899 Other long term (current) drug therapy (principal)
CPT/HCPCS: 36415; 85025

== ENCOUNTER 2022-03-29 09:53 | Outpatient (REF) | payer OTHER, SELFPAY ==
[2022-03-29 11:26] LABS: MANUAL DIFF FLAG NO
[2022-03-29 11:33] LABS: Basophils Percent Auto 0.2 % (0-2); Hematocrit 38.4 % (42.0-52.0); Hemoglobin 12.3 g/dl (14.0-18.0); Imm Gran Abs Auto 0.01 X10*3/uL (0.00-0.03); Imm Gran Pct Auto 0.2 % (0.0-0.4); Lymphocytes Absolute Auto 0.8 X10*3/uL (1.2-4.9); Lymphocytes Percent Auto 17.6 % (20-40); Mean Corpuscular Hemoglobin 29.3 pg (27.0-33.0); Mean Corpuscular Volume 91.4 fL (80.0-98.0); Mean Platelet Volume 10.3 fL (9.4-12.4); Monocytes Absolute Auto 0.5 X10*3/uL (0.1-1.2); Monocytes Percent Auto 12.1 % (2-11); Neutrophils Absolute Auto 3.1 x10*3/uL (2.0-8.3); Neutrophils Percent Auto 69.9 % (45-73); Platelet Count 259 X10*3/uL (160-400); Red Cell Distribution Width 14.2 % (11.0-16.0); White Blood Count 4.4 X10*3/uL (4.8-10.8)
== END 2022-03-29 09:54 | disposition home or self-care (01) ==
LOC: HO.LABR 09:53
PROVIDERS: PCP Internal Medicine; Visit Provider Clinical Nurse Specialist Psychiatric/Mental Health, Adult
DX: Z79.899 Other long term (current) drug therapy (principal)
CPT/HCPCS: 36415; 85025

== ENCOUNTER 2022-04-27 09:55 | Outpatient (REF) | payer OTHER, SELFPAY ==
[2022-04-27 11:24] LABS: MANUAL DIFF FLAG NO
[2022-04-27 11:42] LABS: Basophils Percent Auto 0.5 % (0-2); Eosinophils Percent Auto 0.2 % (0-4); Hematocrit 41.5 % (42.0-52.0); Hemoglobin 13.5 g/dl (14.0-18.0); Imm Gran Abs Auto 0.03 X10*3/uL (0.00-0.03); Imm Gran Pct Auto 0.5 % (0.0-0.4); Lymphocytes Absolute Auto 0.9 X10*3/uL (1.2-4.9); Lymphocytes Percent Auto 13.3 % (20-40); Mean Corpuscular HGB Conc 32.5 g/dl (31.0-36.0); Mean Corpuscular Hemoglobin 29.8 pg (27.0-33.0); Mean Corpuscular Volume 91.6 fL (80.0-98.0); Mean Platelet Volume 10.4 fL (9.4-12.4); Monocytes Absolute Auto 0.6 X10*3/uL (0.1-1.2); Monocytes Percent Auto 9.2 % (2-11); Neutrophils Absolute Auto 5.1 x10*3/uL (2.0-8.3); Neutrophils Percent Auto 76.3 % (45-73); Platelet Count 271 X10*3/uL (160-400); Red Blood Count 4.53 X10*6/uL (4.60-5.80); Red Cell Distribution Width 13.9 % (11.0-16.0); White Blood Count 6.6 X10*3/uL (4.8-10.8)
== END 2022-04-27 09:56 | disposition home or self-care (01) ==
LOC: HO.LABR 09:55
PROVIDERS: PCP Internal Medicine; Visit Provider Clinical Nurse Specialist Psychiatric/Mental Health, Adult
DX: Z79.899 Other long term (current) drug therapy (principal)
CPT/HCPCS: 36415; 85025

== ENCOUNTER 2022-05-28 09:02 | Outpatient (REF) | payer OTHER, SELFPAY ==
[2022-05-28 11:48] LABS: MANUAL DIFF FLAG NO
[2022-05-28 11:58] LABS: Basophils Percent Auto 0.5 % (0-2); Eosinophils Percent Auto 0.3 % (0-4); Hematocrit 41.8 % (42.0-52.0); Hemoglobin 14.1 g/dl (14.0-18.0); Imm Gran Abs Auto 0.04 X10*3/uL (0.00-0.03); Imm Gran Pct Auto 0.6 % (0.0-0.4); Lymphocytes Absolute Auto 0.9 X10*3/uL (1.2-4.9); Lymphocytes Percent Auto 14.7 % (20-40); Mean Corpuscular HGB Conc 33.7 g/dl (31.0-36.0); Mean Corpuscular Hemoglobin 31.1 pg (27.0-33.0); Mean Corpuscular Volume 92.1 fL (80.0-98.0); Mean Platelet Volume 10.6 fL (9.4-12.4); Monocytes Absolute Auto 0.6 X10*3/uL (0.1-1.2); Monocytes Percent Auto 8.8 % (2-11); Neutrophils Absolute Auto 4.7 x10*3/uL (2.0-8.3); Neutrophils Percent Auto 75.1 % (45-73); Platelet Count 238 X10*3/uL (160-400); Red Blood Count 4.54 X10*6/uL (4.60-5.80); Red Cell Distribution Width 13.2 % (11.0-16.0); White Blood Count 6.2 X10*3/uL (4.8-10.8)
== END 2022-05-28 09:03 | disposition home or self-care (01) ==
LOC: HO.HMGCLDS 09:02
PROVIDERS: PCP Internal Medicine; Visit Provider Clinical Nurse Specialist Psychiatric/Mental Health, Adult
DX: Z79.899 Other long term (current) drug therapy (principal)
CPT/HCPCS: 36415; 85025

== ENCOUNTER 2022-06-25 08:33 | Outpatient (REF) | payer OTHER, SELFPAY ==
[2022-06-25 11:25] LABS: MANUAL DIFF FLAG NO
[2022-06-25 11:36] LABS: Basophils Percent Auto 0.5 % (0-2); Eosinophils Percent Auto 0.5 % (0-4); Hematocrit 40.8 % (42.0-52.0); Hemoglobin 13.6 g/dl (14.0-18.0); Imm Gran Abs Auto 0.05 X10*3/uL (0.00-0.03); Imm Gran Pct Auto 0.9 % (0.0-0.4); Lymphocytes Absolute Auto 0.9 X10*3/uL (1.2-4.9); Lymphocytes Percent Auto 15.2 % (20-40); Mean Corpuscular HGB Conc 33.3 g/dl (31.0-36.0); Mean Corpuscular Hemoglobin 31.1 pg (27.0-33.0); Mean Corpuscular Volume 93.2 fL (80.0-98.0); Mean Platelet Volume 10.3 fL (9.4-12.4); Monocytes Absolute Auto 0.6 X10*3/uL (0.1-1.2); Monocytes Percent Auto 10.8 % (2-11); Neutrophils Absolute Auto 4.1 x10*3/uL (2.0-8.3); Neutrophils Percent Auto 72.1 % (45-73); Platelet Count 254 X10*3/uL (160-400); Red Blood Count 4.38 X10*6/uL (4.60-5.80); Red Cell Distribution Width 12.3 % (11.0-16.0); White Blood Count 5.7 X10*3/uL (4.8-10.8)
== END 2022-06-25 08:34 | disposition home or self-care (01) ==
LOC: HO.HMGCLR 08:33
PROVIDERS: PCP Internal Medicine; Visit Provider Clinical Nurse Specialist Psychiatric/Mental Health, Adult
DX: Z79.899 Other long term (current) drug therapy (principal)
CPT/HCPCS: 36415; 85025

== ENCOUNTER 2022-07-26 15:15 | Outpatient (REF) | payer OTHER, SELFPAY ==
[2022-07-26 16:19] LABS: MANUAL DIFF FLAG NO
[2022-07-26 16:21] LABS: Basophils Percent Auto 0.4 % (0-2); Eosinophils Percent Auto 0.4 % (0-4); Hematocrit 40.5 % (42.0-52.0); Hemoglobin 13.2 g/dl (14.0-18.0); Imm Gran Abs Auto 0.04 X10*3/uL (0.00-0.03); Imm Gran Pct Auto 0.6 % (0.0-0.4); Lymphocytes Absolute Auto 1.4 X10*3/uL (1.2-4.9); Mean Corpuscular HGB Conc 32.6 g/dl (31.0-36.0); Mean Corpuscular Hemoglobin 31.1 pg (27.0-33.0); Mean Corpuscular Volume 95.5 fL (80.0-98.0); Mean Platelet Volume 10.2 fL (9.4-12.4); Monocytes Absolute Auto 0.8 X10*3/uL (0.1-1.2); Monocytes Percent Auto 10.5 % (2-11); Neutrophils Percent Auto 69.1 % (45-73); Platelet Count 246 X10*3/uL (160-400); Red Blood Count 4.24 X10*6/uL (4.60-5.80); Red Cell Distribution Width 12.6 % (11.0-16.0); White Blood Count 7.2 X10*3/uL (4.8-10.8)
== END 2022-07-26 15:16 | disposition home or self-care (01) ==
LOC: HO.LABR 15:15
PROVIDERS: Visit Provider Clinical Nurse Specialist Psychiatric/Mental Health, Adult
DX: Z79.899 Other long term (current) drug therapy (principal)
CPT/HCPCS: 36415; 85025

== ENCOUNTER 2022-08-04 10:19 | Outpatient (REF) | payer MEDICARE, SELFPAY ==
--- NOTE | ~2022-08-04 | CT_ITS ---
EXAMINATION: CT CHEST WITHOUT CONTRAST CLINICAL INFORMATION: Malignant neoplasm of unspecified part of the left bronchus. COMPARISON: CT chest 08/12/2021 TECHNIQUE: Multidetector volumetric CT imaging of the chest was done. Axial MIP volume rendering provided. Sagittal and coronal reformatted images were obtained. This CT examination was performed using dose optimization techniques as appropriate, variously including the following: *Automated exposure control *Adjustment of mA and/or kV according to patient size (this includes techniques or standardized protocols for targeted exams where dose is matched to indication/reason for exam; i.e. 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 Postsurgical left lung with diffuse opacification. LUNGS: There is total left pneumonectomy with ipsilateral mediastinal shift. The right lung is expanded with a 2 mm nodule right upper lobe axial image 209/5, stable. There are punctate 1 mm subpleural nodules right upper lobe image 233/5, 2 mm nodule right upper lobe image 222/5, 1 mm subpleural nodule right upper lobe image 297/5, 2 mm nodule right lower lobe axial image 390/5. MEDIASTINUM: The thyroid lobes are symmetric and normal. The central trachea and the bronchi are widely patent. The heart size is shifted to the left but normal size. No abnormal size mediastinal or hilar lymph nodes seen. CORONARY ARTERY CALCIFICATION: No coronary artery calcification seen. PLEURA: There is calcification along the left visceral and parietal pleura with minimal fluid in the cavity, unchanged to previous study. No right pleural effusion, thickening or calcification. AXILLA: No lymphadenopathy. UPPER ABDOMEN: The visualized liver, spleen and pancreas appear unremarkable. OSSEOUS STRUCTURES: There is mild deformity of the left lateral chest wall following surgery. No aggressive lytic or sclerotic process seen. CT/CT chest wo IV con IMPRESSION: Left pneumonectomy with ipsilateral mediastinal shift is stable. Punctate 1-2 mm nodules in the right lung are stable. No abnormal mediastinal or axillary lymphadenopathy. Deformity left upper lateral chest is stable. Fleischner guidelines were followed.
== END 2022-08-04 10:20 | disposition home or self-care (01) ==
LOC: HO.CT 10:19
PROVIDERS: Visit Provider Surgery
DX: C34.92 Malignant neoplasm of unspecified part of left bronchus or lung (principal)
CPT/HCPCS: 71250

== ENCOUNTER 2022-08-25 09:43 | Outpatient (REF) | payer OTHER, MEDICARE, SELFPAY ==
[2022-08-25 11:19] LABS: MANUAL DIFF FLAG NO
[2022-08-25 11:25] LABS: Basophils Percent Auto 0.5 % (0-2); Eosinophils Percent Auto 0.2 % (0-4); Hematocrit 40.6 % (42.0-52.0); Hemoglobin 13.3 g/dl (14.0-18.0); Imm Gran Abs Auto 0.05 X10*3/uL (0.00-0.03); Imm Gran Pct Auto 0.6 % (0.0-0.4); Lymphocytes Absolute Auto 0.9 X10*3/uL (1.2-4.9); Lymphocytes Percent Auto 11.5 % (20-40); Mean Corpuscular HGB Conc 32.8 g/dl (31.0-36.0); Mean Corpuscular Volume 94.6 fL (80.0-98.0); Mean Platelet Volume 10.6 fL (9.4-12.4); Monocytes Absolute Auto 0.7 X10*3/uL (0.1-1.2); Monocytes Percent Auto 8.6 % (2-11); Neutrophils Absolute Auto 6.4 x10*3/uL (2.0-8.3); Neutrophils Percent Auto 78.6 % (45-73); Platelet Count 266 X10*3/uL (160-400); Red Blood Count 4.29 X10*6/uL (4.60-5.80); Red Cell Distribution Width 12.2 % (11.0-16.0); White Blood Count 8.1 X10*3/uL (4.8-10.8)
== END 2022-08-25 09:44 | disposition home or self-care (01) ==
LOC: HO.HMGCLDS 09:43
PROVIDERS: PCP Internal Medicine; Visit Provider Clinical Nurse Specialist Psychiatric/Mental Health, Adult
DX: Z79.899 Other long term (current) drug therapy (principal)
CPT/HCPCS: 36415; 85025

== ENCOUNTER → 2022-09-03 09:17 | Outpatient (BNVA) | payer MEDICARE, SELFPAY | PROVIDERS: PCP Internal Medicine; Visit Provider Surgery | DX: C34.92 Malignant neoplasm of unspecified part of left bronchus or lung (principal); J98.6 Disorders of diaphragm | CPT/HCPCS: 99212 ==

== ENCOUNTER 2022-09-24 08:52 | Outpatient (REF) | payer OTHER, MEDICARE, SELFPAY ==
[2022-09-24 11:12] LABS: MANUAL DIFF FLAG NO
[2022-09-24 11:27] LABS: Basophils Percent Auto 0.5 % (0-2); Eosinophils Absolute Auto 0.1 X10*3/uL (0.0-0.4); Eosinophils Percent Auto 1.1 % (0-4); Hematocrit 42.4 % (42.0-52.0); Imm Gran Abs Auto 0.02 X10*3/uL (0.00-0.03); Imm Gran Pct Auto 0.3 % (0.0-0.4); Lymphocytes Percent Auto 15.7 % (20-40); Mean Platelet Volume 10.5 fL (9.4-12.4); Monocytes Absolute Auto 0.6 X10*3/uL (0.1-1.2); Monocytes Percent Auto 9.1 % (2-11); Neutrophils Absolute Auto 4.5 x10*3/uL (2.0-8.3); Neutrophils Percent Auto 73.3 % (45-73); Platelet Count 237 X10*3/uL (160-400); Red Blood Count 4.51 X10*6/uL (4.60-5.80); Red Cell Distribution Width 12.3 % (11.0-16.0); White Blood Count 6.2 X10*3/uL (4.8-10.8)
== END 2022-09-24 08:53 | disposition home or self-care (01) ==
LOC: HO.HMGCLDS 08:52
PROVIDERS: Visit Provider Clinical Nurse Specialist Psychiatric/Mental Health, Adult
DX: Z79.899 Other long term (current) drug therapy (principal)
CPT/HCPCS: 36415; 85025

== ENCOUNTER 2022-10-21 12:18 | Outpatient (REF) | payer OTHER, SELFPAY ==
[2022-10-21 13:59] LABS: MANUAL DIFF FLAG NO
[2022-10-21 14:25] LABS: Basophils Percent Auto 0.6 % (0-2); Eosinophils Absolute Auto 0.1 X10*3/uL (0.0-0.4); Eosinophils Percent Auto 1.9 % (0-4); Hematocrit 39.7 % (42.0-52.0); Hemoglobin 13.1 g/dl (14.0-18.0); Imm Gran Abs Auto 0.05 X10*3/uL (0.00-0.03); Imm Gran Pct Auto 0.7 % (0.0-0.4); Lymphocytes Absolute Auto 1.2 X10*3/uL (1.2-4.9); Lymphocytes Percent Auto 18.1 % (20-40); Mean Corpuscular Volume 93.9 fL (80.0-98.0); Mean Platelet Volume 10.6 fL (9.4-12.4); Monocytes Absolute Auto 0.7 X10*3/uL (0.1-1.2); Monocytes Percent Auto 10.6 % (2-11); Neutrophils Absolute Auto 4.5 x10*3/uL (2.0-8.3); Neutrophils Percent Auto 68.1 % (45-73); Platelet Count 243 X10*3/uL (160-400); Red Blood Count 4.23 X10*6/uL (4.60-5.80); Red Cell Distribution Width 12.4 % (11.0-16.0); White Blood Count 6.7 X10*3/uL (4.8-10.8)
== END 2022-10-21 12:19 | disposition home or self-care (01) ==
LOC: HO.HMGCLR 12:18
PROVIDERS: PCP Internal Medicine; Visit Provider Clinical Nurse Specialist Psychiatric/Mental Health, Adult
DX: Z79.899 Other long term (current) drug therapy (principal)
CPT/HCPCS: 36415; 85025

== ENCOUNTER 2022-11-22 08:53 | Outpatient (REF) | payer OTHER, SELFPAY ==
[2022-11-22 11:25] LABS: MANUAL DIFF FLAG NO
[2022-11-22 11:36] LABS: Basophils Percent Auto 0.6 % (0-2); Eosinophils Absolute Auto 0.1 X10*3/uL (0.0-0.4); Eosinophils Percent Auto 0.9 % (0-4); Hematocrit 40.7 % (42.0-52.0); Hemoglobin 13.7 g/dl (14.0-18.0); Imm Gran Abs Auto 0.05 X10*3/uL (0.00-0.03); Imm Gran Pct Auto 0.8 % (0.0-0.4); Lymphocytes Absolute Auto 0.9 X10*3/uL (1.2-4.9); Lymphocytes Percent Auto 13.7 % (20-40); Mean Corpuscular HGB Conc 33.7 g/dl (31.0-36.0); Mean Corpuscular Hemoglobin 31.9 pg (27.0-33.0); Mean Corpuscular Volume 94.9 fL (80.0-98.0); Mean Platelet Volume 10.2 fL (9.4-12.4); Monocytes Absolute Auto 0.6 X10*3/uL (0.1-1.2); Monocytes Percent Auto 9.7 % (2-11); Neutrophils Absolute Auto 4.8 x10*3/uL (2.0-8.3); Neutrophils Percent Auto 74.3 % (45-73); Platelet Count 251 X10*3/uL (160-400); Red Blood Count 4.29 X10*6/uL (4.60-5.80); Red Cell Distribution Width 12.4 % (11.0-16.0); White Blood Count 6.5 X10*3/uL (4.8-10.8)
== END 2022-11-22 08:54 | disposition home or self-care (01) ==
LOC: HO.HMGCLR 08:53
PROVIDERS: PCP Internal Medicine; Visit Provider Clinical Nurse Specialist Psychiatric/Mental Health, Adult
DX: Z79.899 Other long term (current) drug therapy (principal)
CPT/HCPCS: 36415; 85025

== ENCOUNTER 2022-12-23 09:35 | Outpatient (REF) | payer OTHER, SELFPAY ==
[2022-12-23 11:24] LABS: MANUAL DIFF FLAG NO
[2022-12-23 11:49] LABS: Basophils Percent Auto 0.6 % (0-2); Eosinophils Absolute Auto 0.1 X10*3/uL (0.0-0.4); Eosinophils Percent Auto 1.2 % (0-4); Imm Gran Abs Auto 0.04 X10*3/uL (0.00-0.03); Imm Gran Pct Auto 0.6 % (0.0-0.4); Lymphocytes Absolute Auto 0.9 X10*3/uL (1.2-4.9); Lymphocytes Percent Auto 13.6 % (20-40); Mean Corpuscular HGB Conc 32.6 g/dl (31.0-36.0); Mean Corpuscular Hemoglobin 30.6 pg (27.0-33.0); Mean Corpuscular Volume 94.1 fL (80.0-98.0); Mean Platelet Volume 10.3 fL (9.4-12.4); Monocytes Absolute Auto 0.7 X10*3/uL (0.1-1.2); Monocytes Percent Auto 9.6 % (2-11); Neutrophils Percent Auto 74.4 % (45-73); Platelet Count 245 X10*3/uL (160-400); Red Blood Count 4.57 X10*6/uL (4.60-5.80); Red Cell Distribution Width 12.3 % (11.0-16.0); White Blood Count 6.8 X10*3/uL (4.8-10.8)
== END 2022-12-23 09:36 | disposition home or self-care (01) ==
LOC: HO.HMGCLR 09:35
PROVIDERS: PCP Internal Medicine; Visit Provider Clinical Nurse Specialist Psychiatric/Mental Health, Adult
DX: Z79.899 Other long term (current) drug therapy (principal)
CPT/HCPCS: 36415; 85025

== ENCOUNTER 2023-01-21 07:14 | Outpatient (REF) | payer OTHER, SELFPAY ==
[2023-01-21 11:17] LABS: MANUAL DIFF FLAG NO
[2023-01-21 11:37] LABS: Basophils Percent Auto 0.4 % (0-2); Eosinophils Absolute Auto 0.1 X10*3/uL (0.0-0.4); Eosinophils Percent Auto 1.3 % (0-4); Hematocrit 44.1 % (42.0-52.0); Hemoglobin 14.4 g/dl (14.0-18.0); Imm Gran Abs Auto 0.05 X10*3/uL (0.00-0.03); Imm Gran Pct Auto 0.7 % (0.0-0.4); Lymphocytes Absolute Auto 0.8 X10*3/uL (1.2-4.9); Mean Corpuscular HGB Conc 32.7 g/dl (31.0-36.0); Mean Corpuscular Hemoglobin 30.9 pg (27.0-33.0); Mean Corpuscular Volume 94.6 fL (80.0-98.0); Mean Platelet Volume 10.4 fL (9.4-12.4); Monocytes Absolute Auto 0.7 X10*3/uL (0.1-1.2); Monocytes Percent Auto 9.9 % (2-11); Neutrophils Absolute Auto 5.2 x10*3/uL (2.0-8.3); Neutrophils Percent Auto 75.7 % (45-73); Platelet Count 259 X10*3/uL (160-400); Red Blood Count 4.66 X10*6/uL (4.60-5.80); Red Cell Distribution Width 12.4 % (11.0-16.0); White Blood Count 6.9 X10*3/uL (4.8-10.8)
== END 2023-01-21 07:15 | disposition home or self-care (01) ==
LOC: HO.HMGCLR 07:14
PROVIDERS: PCP Internal Medicine; Visit Provider Clinical Nurse Specialist Psychiatric/Mental Health, Adult
DX: Z79.899 Other long term (current) drug therapy (principal)
CPT/HCPCS: 36415; 85025

== ENCOUNTER 2023-02-21 08:21 | Outpatient (REF) | payer OTHER, SELFPAY ==
[2023-02-21 11:31] LABS: MANUAL DIFF FLAG NO
[2023-02-21 11:38] LABS: Basophils Percent Auto 0.3 % (0-2); Eosinophils Percent Auto 0.3 % (0-4); Hematocrit 40.2 % (42.0-52.0); Hemoglobin 13.4 g/dl (14.0-18.0); Imm Gran Abs Auto 0.08 X10*3/uL (0.00-0.03); Imm Gran Pct Auto 0.5 % (0.0-0.4); Lymphocytes Absolute Auto 0.6 X10*3/uL (1.2-4.9); Lymphocytes Percent Auto 3.9 % (20-40); Mean Corpuscular HGB Conc 33.3 g/dl (31.0-36.0); Mean Corpuscular Hemoglobin 31.1 pg (27.0-33.0); Mean Corpuscular Volume 93.3 fL (80.0-98.0); Mean Platelet Volume 10.3 fL (9.4-12.4); Monocytes Absolute Auto 1.2 X10*3/uL (0.1-1.2); Monocytes Percent Auto 8.3 % (2-11); Neutrophils Percent Auto 86.7 % (45-73); Platelet Count 270 X10*3/uL (160-400); Red Blood Count 4.31 X10*6/uL (4.60-5.80); Red Cell Distribution Width 12.5 % (11.0-16.0)
== END 2023-02-21 08:22 | disposition home or self-care (01) ==
LOC: HO.HMGCLDS 08:21
PROVIDERS: PCP Internal Medicine; Visit Provider Clinical Nurse Specialist Psychiatric/Mental Health, Adult
DX: Z79.899 Other long term (current) drug therapy (principal)
CPT/HCPCS: 36415; 85025

== ENCOUNTER 2023-03-23 09:41 | Outpatient (REF) | payer OTHER, SELFPAY ==
[2023-03-23 13:26] LABS: MANUAL DIFF FLAG NO
[2023-03-23 13:38] LABS: Basophils Percent Auto 0.6 % (0-2); Eosinophils Absolute Auto 0.1 X10*3/uL (0.0-0.4); Eosinophils Percent Auto 1.2 % (0-4); Hematocrit 42.1 % (42.0-52.0); Hemoglobin 13.8 g/dl (14.0-18.0); Imm Gran Abs Auto 0.03 X10*3/uL (0.00-0.03); Imm Gran Pct Auto 0.5 % (0.0-0.4); Lymphocytes Percent Auto 14.7 % (20-40); Mean Corpuscular HGB Conc 32.8 g/dl (31.0-36.0); Mean Corpuscular Hemoglobin 30.5 pg (27.0-33.0); Mean Corpuscular Volume 93.1 fL (80.0-98.0); Mean Platelet Volume 10.4 fL (9.4-12.4); Monocytes Absolute Auto 0.7 X10*3/uL (0.1-1.2); Monocytes Percent Auto 10.8 % (2-11); Neutrophils Absolute Auto 4.8 x10*3/uL (2.0-8.3); Neutrophils Percent Auto 72.2 % (45-73); Platelet Count 248 X10*3/uL (160-400); Red Blood Count 4.52 X10*6/uL (4.60-5.80); Red Cell Distribution Width 12.3 % (11.0-16.0); White Blood Count 6.6 X10*3/uL (4.8-10.8)
== END 2023-03-23 09:42 | disposition home or self-care (01) ==
LOC: HO.HMGCLR 09:41
PROVIDERS: PCP Internal Medicine; Visit Provider Clinical Nurse Specialist Psychiatric/Mental Health, Adult
DX: Z79.899 Other long term (current) drug therapy (principal)
CPT/HCPCS: 36415; 85025

== ENCOUNTER 2023-04-20 15:05 | Outpatient (REF) | payer OTHER, SELFPAY ==
[2023-04-20 16:03] LABS: MANUAL DIFF FLAG NO
[2023-04-20 16:14] LABS: Basophils Percent Auto 0.4 % (0-2); Eosinophils Absolute Auto 0.1 X10*3/uL (0.0-0.4); Eosinophils Percent Auto 1.2 % (0-4); Hematocrit 38.9 % (42.0-52.0); Hemoglobin 12.9 g/dl (14.0-18.0); Imm Gran Abs Auto 0.05 X10*3/uL (0.00-0.03); Imm Gran Pct Auto 0.7 % (0.0-0.4); Lymphocytes Percent Auto 12.8 % (20-40); Mean Corpuscular HGB Conc 33.2 g/dl (31.0-36.0); Mean Corpuscular Hemoglobin 30.8 pg (27.0-33.0); Mean Corpuscular Volume 92.8 fL (80.0-98.0); Mean Platelet Volume 10.5 fL (9.4-12.4); Monocytes Absolute Auto 0.7 X10*3/uL (0.1-1.2); Monocytes Percent Auto 9.2 % (2-11); Neutrophils Absolute Auto 5.6 x10*3/uL (2.0-8.3); Neutrophils Percent Auto 75.7 % (45-73); Platelet Count 221 X10*3/uL (160-400); Red Blood Count 4.19 X10*6/uL (4.60-5.80); Red Cell Distribution Width 12.4 % (11.0-16.0); White Blood Count 7.4 X10*3/uL (4.8-10.8)
== END 2023-04-20 15:06 | disposition home or self-care (01) ==
LOC: HO.HMGCLDS 15:05
PROVIDERS: Visit Provider Clinical Nurse Specialist Psychiatric/Mental Health, Adult
DX: Z79.899 Other long term (current) drug therapy (principal)
CPT/HCPCS: 36415; 85025

== ENCOUNTER 2023-05-20 13:19 | Outpatient (REF) | payer OTHER, SELFPAY ==
[2023-05-20 15:57] LABS: MANUAL DIFF FLAG NO
[2023-05-20 16:06] LABS: Basophils Percent Auto 0.5 % (0-2); Eosinophils Absolute Auto 0.1 X10*3/uL (0.0-0.4); Eosinophils Percent Auto 1.3 % (0-4); Hematocrit 41.7 % (42.0-52.0); Hemoglobin 13.6 g/dl (14.0-18.0); Imm Gran Abs Auto 0.04 X10*3/uL (0.00-0.03); Imm Gran Pct Auto 0.5 % (0.0-0.4); Lymphocytes Absolute Auto 1.1 X10*3/uL (1.2-4.9); Lymphocytes Percent Auto 12.6 % (20-40); Mean Corpuscular HGB Conc 32.6 g/dl (31.0-36.0); Mean Corpuscular Hemoglobin 30.8 pg (27.0-33.0); Mean Corpuscular Volume 94.3 fL (80.0-98.0); Mean Platelet Volume 10.3 fL (9.4-12.4); Monocytes Absolute Auto 0.7 X10*3/uL (0.1-1.2); Monocytes Percent Auto 8.4 % (2-11); Neutrophils Absolute Auto 6.4 x10*3/uL (2.0-8.3); Neutrophils Percent Auto 76.7 % (45-73); Platelet Count 253 X10*3/uL (160-400); Red Blood Count 4.42 X10*6/uL (4.60-5.80); Red Cell Distribution Width 12.9 % (11.0-16.0); White Blood Count 8.4 X10*3/uL (4.8-10.8)
== END 2023-05-20 13:20 | disposition home or self-care (01) ==
LOC: HO.HMGCLR 13:19
PROVIDERS: PCP Internal Medicine; Visit Provider Clinical Nurse Specialist Psychiatric/Mental Health, Adult
DX: Z79.899 Other long term (current) drug therapy (principal)
CPT/HCPCS: 36415; 85025

== ENCOUNTER 2023-06-21 09:32 | Outpatient (REF) | payer OTHER, SELFPAY ==
[2023-06-21 11:27] LABS: MANUAL DIFF FLAG NO
[2023-06-21 11:46] LABS: Basophils Percent Auto 0.5 % (0-2); Eosinophils Absolute Auto 0.1 X10*3/uL (0.0-0.4); Eosinophils Percent Auto 1.3 % (0-4); Hematocrit 43.7 % (42.0-52.0); Hemoglobin 14.4 g/dl (14.0-18.0); Imm Gran Abs Auto 0.02 X10*3/uL (0.00-0.03); Imm Gran Pct Auto 0.3 % (0.0-0.4); Lymphocytes Percent Auto 15.3 % (20-40); Mean Corpuscular Hemoglobin 30.8 pg (27.0-33.0); Mean Corpuscular Volume 93.6 fL (80.0-98.0); Mean Platelet Volume 10.1 fL (9.4-12.4); Monocytes Absolute Auto 0.6 X10*3/uL (0.1-1.2); Monocytes Percent Auto 9.3 % (2-11); Neut%MD 73.3 %; Neutrophils Absolute Auto 4.7 x10*3/uL (2.0-8.3); Neutrophils Percent Auto 73.3 % (45-73); Platelet Count 252 X10*3/uL (160-400); Red Blood Count 4.67 X10*6/uL (4.60-5.80); Red Cell Distribution Width 12.6 % (11.0-16.0); WBCANC 6.4 X10*3/uL; White Blood Count 6.4 X10*3/uL (4.8-10.8)
== END 2023-06-21 09:33 | disposition home or self-care (01) ==
LOC: HO.HMGCLR 09:32
PROVIDERS: PCP Internal Medicine; Visit Provider Clinical Nurse Specialist Psychiatric/Mental Health, Adult
DX: Z79.899 Other long term (current) drug therapy (principal)
CPT/HCPCS: 36415; 85025

== ENCOUNTER 2023-07-16 10:03 | Outpatient (AMB) | payer MEDICARE, SELFPAY ==
--- OUTSIDE RECORDS SUMMARY | 2023-07-16 10:05 | XMS_ITS | Continuity of Care Document ---
Author Name Unknown Organization [facility] Address [address] [place] [address]- Care Team Providers Care Mapping Analyst Name Role Phone Torsten Hinson MD Primary Care Physician Encounter 11/07/21 - 12/17/21 [facility] [address] [place] [address]- Discharge Disposition: CLIENT NO LONGER REQUIRES SKILLED CARE Allergies, Adverse Reactions, Alerts Substance Reaction Severity Status Adhesive Bandage Rash/blistering Active Immunizations Given and Recorded Vaccine Date Status Refusal Reason influenza virus vaccine, inactivated 09/07/21 Faraz rded influenza virus vaccine, inactivated 06/09/21 Faraz rded influenza virus vaccine, inactivated 05/04/16 Faraz rded SARS-CoV-2 (COVID-19) Ad26 vaccine 08/01/21 Record ed SARS-CoV-2 (COVID-19) Ad26 vaccine 01/27/21 Record ed pneumococcal 13-valent vaccine 04/30/16 Recorded Medications Albuterol (Eqv-ProAir HFA) 90 mcg/inh inhalation aerosol 0 Refills, Maintenance, 10/30/21 20:46:00 EST, Partial fill upon patient request if the prescription is for a schedule II opioid drug. Start Date: 10/30/21 Status: Ordered Colace sodium 100 mg oral capsule 100 mg, 1, capsule, By Mouth, 2 times a day, PRN, # 20 capsule, Refills 0, Tot. Refills 0, Maintenance, for constipation, 10/27/21 16:54:00 EST, Route to Pharmacy Electronically, [facility], Partial fill upon patient request if the presc... Start Date: 10/27/21 Status: Ordered guaiFENesin 400 mg oral tablet 1 tablet = 400 mg, By Mouth, 3 times a day, Mucous Pill, 0 Refills, Maintenance, 10/16/21 19:03:00 EST, Partial fill upon patient request if the prescription is for a schedule II opioid drug. Start Date: 10/16/21 Status: Ordered hospital bed hospital bed, See Instructions, # 1 Unknown, Refills 0, Tot. Refills 0, Maintenance, Hospital Bed, 11/04/21 16:19:00 EST, Supply Start Date: 11/04/21 Status: Ordered lidocaine 2% topical gel with applicator 10 mL = 0.2 Gm, Topically, Every 4 hours, PRN Other, penile pain, # 10 mL, 0 Refills, Soft Stop, 11/06/21 10:08:00 EST, Gel, [facility], Partial fill upon patient request if the prescription is for a schedule II opioid drug., 172, cm, 03... Start Date: 11/06/21 Status: Ordered Protonix 40 mg oral delayed release tablet = 40 mg, By Mouth, Daily, # 30 tablet, 0 Refills, Maintenance, 11/06/21 10:12:00 EST, EC Tablet, 172, cm, 11/04/21 3:50:00 EST, Height, 76, kg, 10/30/21 22:59:00 EST, Dry Weight Start Date: 11/06/21 Status: Ordered Vitamin D3 400 intl units oral capsule 1 capsule = 10 mcg, By Mouth, Every Tuesday and Tuesday, 0 Refills, Maintenance, 10/16/21 18:57:00 EST, Partial fill upon patient request if the prescription is for a schedule II opioid drug. Start Date: 10/16/21 Status: Ordered
--- OUTSIDE RECORDS SUMMARY | 2023-07-16 10:05 | XMS_ITS | Continuity of Care Document ---
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 Name Role Phone Torsten Hinson MD Primary Care Physician Encounter [facility] Date(s): 10/30/21 - 11/06/[address] [address] Discharge Disposition: A-Transfer VNA/Home Health Attending Physician: Jeffrey Lopez MD Admitting Physician: Sade Garcia MD Referring Physician: Not on Staff, Referring MD Allergies, Adverse Reactions, Alerts Substance Reaction Severity [...] 10/27/21 16:54:00 EST, Route to Pharmacy Electronically, [facility], Partial fill upon patient [...] Refills, Soft Stop, 11/06/21 10:08:00 EST, Gel, [facility], Partial fill upon patient request if the prescription is for a schedule II opioid drug., 172, cm, 03... Start Date: 11/06/21 Status: Ordered oxyCODONE 5 mg oral tablet 5 mg, 1, tablet, By Mouth, Every 6 hours, PRN, for 5 days, # 12 tablet, Refills 0, Tot. Refills 0, Acute 11/11/21 10:12:00 EDT, Pain , Moderate, 11/06/21 10:12:00 EST, Route to Pharmacy Electronically, [facility], Partial fill upon patie... Start Date: 11/06/21 Stop Date: 11/11/21 Status: Ordered Protonix 40 mg oral delayed [...] opioid drug. Start Date: 10/16/21 Status: Ordered Results Radiology Reports * Exam Date Time Procedure Performing Provider Status 11/01/21 12:21 AM XR Abdomen AP Small Bowel W/ contrast Michael Simpson; Auth (Verified) Notes: (XR Abdomen AP Small Bowel W/ contrast) Reason For Exam: Distention;SBO RESULT: XR Abdomen AP Small Bowel with contrast XR Abdomen AP Small Bowel with contrast INDICATION: Reason: Distention; SBO; Clinical Question(s): Other:; Special Instructions: contrast given at 1615 COMPARISON: CT of the abdomen and pelvis from 10/30/2021 FINDINGS: There are multiple dilated small bowel loops, as well as air distended colonic loops. No oral contrast is seen. IMPRESSION: No oral contrast is seen. Dilated small bowel and large bowel loops suspicious for small bowel obstruction. May consider repeating the small bowel series exam. A [place] message has been communicated via the [employer] system on 11/01/2021 2:02 PM, Message ID [id number]. WSN: [id number] Ordering Physician: Radhika Rogers Dictated By: Radha Morel MD Dictated Date/Time: 11/01/21 2:02 pm Reviewed By: Radha Morel MD Signed By: Radha Morel MD Signed Date/Time: 11/01/21 2:02 pm Transcribed By: MARGARITA Transcribed Date/Time: 11/01/21 1:58 pm Vital Signs Most recent to oldest [Reference Range]: 1 2 3 Height 172 cm (11/04/21 3:50 AM) 172 cm (11/03/21 3:13 AM) 172 cm (11/01/21 4:39 AM) Weight 76 kg (10/30/21 9:32 PM) 76.36 kg (10/30/21 7:36 PM) 76.36 kg (10/30/21 9:40 AM) Oxygen Saturation [94-100 %] 100 % (11/06/21 7:00 AM) 100 % (11/06/21 4:00 AM) 100 % (11/05/21 8:00 PM) Pulse Rate [55-90 bpm] 60 bpm (11/06/21 7:00 AM) 63 bpm (11/06/21 4:00 AM) 62 bpm (11/05/21 8:00 PM) Body Mass Index [18.5-24.99] 25.69 *H* (10/30/21 9:32 PM) 25.81 *H* (10/30/21 7:36 PM) Blood Pressure [90-138/55-84 mm Hg] 114/53mm Hg (11/06/21 7:00 AM) 128/78mm Hg (11/06/21 4:00 AM) 121/63mm Hg (11/05/21 8:00 PM) Respiratory Rate [16-30 br/min] 18 br/min (11/06/21 7:00 AM) 18 br/min (11/06/21 4:00 AM) 18 br/min (11/05/21 8:00 PM) Temperature [96.8-100.4 DegF] 97.9 DegF (11/06/21 7:00 AM) 98.2 DegF (11/06/21 4:00 AM) 98.1 DegF (11/05/21 8:00 PM) Mode of Delivery (Oxygen) Room air (11/06/21 7:00 AM) Room air (11/06/21 4:00 AM) Room air (11/05/21 8:00 PM) Blood pressure sites Arm, left (11/06/21 7:00 AM) Arm, left (11/06/21 4:00 AM) Arm, left (11/05/21 8:00 PM) Temperature Route Oral (11/06/21 7:00 AM) Oral (11/06/21 4:00 AM) Oral (11/05/21 8:00 PM) Dry Weight 76 kg (10/30/21 9:32 PM) 76.36 kg (10/30/21 7:36 PM) 76.36 kg (10/30/21 9:40 AM) Weight Obtained Via Patient/family state d (10/30/21 9:40 AM) Dry Weight Obtained Via Patient/family s tated (10/30/21 9:40 AM)
--- OUTSIDE RECORDS SUMMARY | 2023-07-16 10:05 | XMS_ITS | Patient Health Record ---
Author Name Unknown [facility] Address [address] [place] [address] Care Team Providers Care Ship Carpenter Name Role Phone Narinder Rogers MD Primary Care Provider Unavail able Mary Mason Unavailable [phone] ALLERGIES No Known Allergies REASON FOR REFERRAL Diagnosis 1 Atherosclerosis of a rtery of both lower extremities (I70.203) Diagnosis 2 Plantar wart (B07.0) Referring Provider First Name Narinder Referring Provider Last Name Ken Referred [facility] Jose Alfredo Referred Provider Mary Mason Referred Address [address] [facility],[place],[address], Referred Provider Specialty Podiatry Referral Priority Routine MEDICATIONS Medication SIG (Take, Route, Frequency, Duration) Notes Start Date End Date Status Ammonium Lactate 12 % 1 application to affected area Externally to feet Twice a day for 30 days Active Ammonium Lactate 12 % 1 application to affected area Externally to feet Twice a day for 30 days Not-Taking Compression Stockings 20-30mm Hg as directed 05/30/2020 Active zzzCompression Stockings 20-30mm Hg . . . for . Active Vitamin D Active cloZAPine 100 MG 3 tablet Orally before bed Active Tylenol TopCare Active IMMUNIZATIONS Vaccine Route Administration Date Status Comme nts COVID-19 Vickey [employer] Vickey/Devin Unknown 08/01/2021 A dministered Influenza Unknown 06/09/2021 Refused SOCIAL HISTORY Tobacco Use: Social History Observation Description Date Details (start date - stop date) Former Smoker NA - NA Sex Assigned At : Social History Observation Description Sex Assigned At Unknown Tobacco Use/Smoking Question Answer Notes Are you a: former smoker Additional Findings: Tobacco Non-User Current no n-smoker Alcohol Screen Question Answer Notes Did you have a drink containing alcohol in the p ast year? No Points 0 Interpretation Negative Tobacco use other than smoking: Question Answer Notes Are you an other tobacco user? No PROBLEMS Problem Type ICD Code Onset Dates Problem Status W/U Status Risk SNOMED Code Notes Problem Plantar wart (B07.0) Active confirmed 07183648 Problem Atherosclerosis of artery of both lower extremities (I70.203) Active confirmed [id number] VITAL SIGNS Blood pressure diastolic 80 mm Hg 03/30/2023 Height 5ft 8in in 06/14/2023 Blood pressure systolic 120 mm Hg 03/30/2023 Weight 149 lbs 06/14/2023 BMI 22.65 kg/m2 06/14/2023 Encounters Encounter Location Date Provider Diagnosis [address] [address] 08/27/2022 Mary Perica Tinea unguium B35.1 ; Atherosclerosis of artery of both lower extremities I70.203 ; Pain in right toe(s) M79.674 and Pain in left toe(s) M79.[address] [address] 10/05/2022 Mary Perica Xerosis cutis L85.[address] [address] 11/05/2022 Mary Perica [address] [address] 11/09/2022 Mary Perica [address] [address] 11/10/2022 Mary Perica Tinea unguium B35.1 ; Atherosclerosis of artery of both lower extremities I70.203 ; Pain in right toe(s) M79.674 and Pain in left toe(s) M79.[address] [address] 01/19/2023 Mary Perica Tinea unguium B35.1 ; Atherosclerosis of artery of both lower extremities I70.203 ; Pain in right toe(s) M79.674 and Pain in left toe(s) M79.[address] [place] [address] 03/30/2023 Mary Marlon Tinea unguium B35.1 ; Atherosclerosis of artery of both lower extremities I70.203 ; Pain in right toe(s) M79.674 and Pain in left toe(s) M79.675 [facility] [address] [address] 06/14/2023 Mary Marlon Atherosclerosis of artery of both lower extremities I70.203 ; Metatarsalgia of right foot M77.41 ; Tinea unguium B35.1 ; Pain in right toe(s) M79.674 and Pain in left toe(s) M79.675 ASSESSMENTS Encounter Date Diagnosis Assessment Notes Treatment Notes Treatment Clinical Notes 08/27/2022 Tinea unguium (ICD-1 0 - B35.1) 08/27/2022 Atherosclerosis of artery of both lower extremities (ICD-10 - I70.203) 10/05/2022 Xerosis cutis (ICD-1 0 - L85.3) 11/10/2022 Tinea unguium (ICD-1 0 - B35.1) 11/10/2022 Atherosclerosis of artery of both lower extremities (ICD-10 - I70.203) 01/19/2023 Tinea unguium (ICD-1 0 - B35.1) 01/19/2023 Atherosclerosis of artery of both lower extremities (ICD-10 - I70.203) 03/30/2023 Tinea unguium (ICD-1 0 - B35.1) 03/30/2023 Atherosclerosis of artery of both lower extremities (ICD-10 - I70.203) 06/14/2023 Metatarsalgia of rig ht foot (ICD-10 - M77.41) 06/14/2023 Atherosclerosis of artery of both lower extremities (ICD-10 - I70.203) 06/14/2023 Tinea unguium (ICD-1 0 - B35.1) 03/30/2023 Pain in right toe(s) (ICD-10 - M79.674) 01/19/2023 Pain in right toe(s) (ICD-10 - M79.674) 11/10/2022 Pain in right toe(s) (ICD-10 - M79.674) 08/27/2022 Pain in right toe(s) (ICD-10 - M79.674) 08/27/2022 Pain in left toe(s) (ICD-10 - M79.675) 11/10/2022 Pain in left toe(s) (ICD-10 - M79.675) 01/19/2023 Pain in left toe(s) (ICD-10 - M79.675) 03/30/2023 Pain in left toe(s) (ICD-10 - M79.675) 06/14/2023 Pain in right toe(s) (ICD-10 - M79.674) 06/14/2023 Pain in left toe(s) (ICD-10 - M79.675) PLAN OF TREATMENT Pending Test Test Name Order Date X ray : Foot, right 3V 02/27/2021 Next Appt Details Provider Name:Mary garcia, 08/19/2023 11:00:00 AM, [address] [place] [address], [phone], Insurance Providers Payer Name Payer Address Payer Phone Subscriber Number Group Number Insured Name Patient Relationship to Insured Coverage Start Date Coverage End Date [facility] 65 Medicare Preferred [address] [place] [address] [id number] Minor Max Self - patient is the insured MEDICAL (GENERAL) HISTORY Medical History History ICD Code Prostate cancer Surgical History Surgery Date(Month/Year) leg surgery- both legs- veins 01/2021
--- OUTSIDE RECORDS SUMMARY | 2023-07-16 10:05 | XMS_ITS | Continuity of Care Document ---
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 Role Phone Not on Staff, PCP Primary Care Physician Unavail able Encounter [facility] Date(s): 10/27/21 - 10/29/[address] [address] Discharge Disposition: A-Transfer VNA/Home Health Attending Physician: Grover Mir MD Admitting Physician: Grover Mir MD Referring Physician: Grover Mir MD Allergies, Adverse Reactions, Alerts No Known Medication Allergies Medications acetaminophen 325 mg oral tablet 975 mg, Tablet, By Mouth, Every 6 hours, PRN for Pain , Mild, Routine, 10/28/21 13:35:00 EST Start Date: 10/28/21 Stop Date: 10/30/21 Status: Discontinued acetaminophen-hydrocodone 300 mg-5 mg oral tablet 1 tablet, By Mouth, Every 4 hours, PRN as needed for pain, # 5 tablet, 0 Refills, Acute 11/03/21 16:57:00 EST, 10/27/21 16:56:00 EST, Tablet, [facility], Partial fill upon patient request if the prescription is for a schedule II opioid d... Start Date: 10/27/21 Stop Date: 11/03/21 Status: Ordered Clozapine = 150 mg, By Mouth, Daily at bedtime, 0 Refills, Maintenance, 10/16/21 18:37:00 EST, Partial fill upon patient request if the prescription is for a schedule II opioid drug. Start Date: 10/16/21 Status: Ordered Colace sodium 100 mg oral capsule 100 mg, 1, capsule, By Mouth, 2 times a day, PRN, # 20 capsule, Refills 0, Tot. Refills 0, Maintenance, for constipation, 10/27/21 16:54:00 EST, Route to Pharmacy Electronically, [facility], Partial fill upon patient request if the presc... Start Date: 10/27/21 Status: Ordered guaiFENesin 400 mg oral tablet 1 tablet = 400 mg, By Mouth, 3 times a day, Mucous Pill, 0 Refills, Maintenance, 10/16/21 19:03:00 EST, Partial fill upon patient request if the prescription is for a schedule II opioid drug. Start Date: 10/16/21 Status: Ordered Vitamin D3 400 intl units oral capsule 1 capsule = 10 mcg, By Mouth, Every Tuesday and Tuesday, 0 Refills, Maintenance, 10/16/21 18:57:00 EST, Partial fill upon patient request if the prescription is for a schedule II opioid drug. Start Date: 10/16/21 Status: Ordered Vital Signs Most recent to oldest [Reference Range]: 1 2 3 Height 172.7 cm (10/29/21 7:16 AM) 172.7 cm (10/29/21 12:38 AM) 172.7 cm (10/28/21 8:29 PM) Weight 75 kg (10/27/21 9:21 PM) 74.3 kg (10/27/21 11:10 AM) 75 kg (10/16/21 7:06 PM) Oxygen Saturation [94-100 %] 96 % (10/29/21 7:16 AM) 94 % (10/29/21 12:38 AM) 96 % (10/28/21 8:29 PM) Pulse Rate [55-90 bpm] 106 bpm *H* (10/29/21 7:16 AM) 97 bpm *H* (10/29/21 12:38 AM) 102 bpm *H* (10/28/21 8:29 PM) Body Mass Index [18.5-24.99] 25.15 *H* (10/27/21 9:21 PM) 24.91 (10/27/21 11:10 AM) 25.15 *H* (10/16/21 7:06 PM) Blood Pressure [90-138/55-84 mm Hg] 131/90mm Hg (10/29/21 7:16 AM) 151/80mm Hg *H* (10/29/21 12:38 AM) 147/78mm Hg *H* (10/28/21 8:29 PM) Respiratory Rate [16-30 br/min] 20 br/min (10/29/21 11:00 AM) 17 br/min (10/29/21 7:16 AM) 18 br/min (10/29/21 12:38 AM) Temperature [96.8-100.4 DegF] 98.0 DegF (10/29/21 7:16 AM) 98.7 DegF (10/29/21 12:38 AM) 98.6 DegF (10/28/21 8:29 PM) Liters per Minute 6 L/min (10/27/21 5:15 PM) Mode of Delivery (Oxygen) Room air (10/29/21 7:16 AM) Room air (10/29/21 12:38 AM) Room air (10/28/21 8:29 PM) Blood pressure sites Arm, right (10/29/21 7:16 AM) Arm, left (10/29/21 12:38 AM) Arm, left (10/28/21 8:29 PM) Temperature Route Oral (10/29/21 7:16 AM) Oral (10/29/21 12:38 AM) Oral (10/28/21 8:29 PM) Dry Weight 75 kg (10/27/21 9:21 PM) 74.3 kg (10/27/21 11:10 AM) 75 kg (10/16/21 7:06 PM) Weight Obtained Via Patient/family state d (10/16/21 7:06 PM) Dry Weight Obtained Via Standing scale (10/27/21 11:10 AM) Patient/family stated (10/16/21 7:06 PM)
--- OUTSIDE RECORDS SUMMARY | 2023-07-16 10:05 | XMS_ITS | Continuity of Care Document ---
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
--- NOTE | 2023-07-16 11:18 | MHC.OFFWIV ---
Intake Vital Signs 07/16/23 11:20 Weight 149 lb BP 110/60 Blood Pressure Location Rt brachial Position Sitting Pulse 64 Pulse Source Pulse Oximeter Temp 98.1 F Temp Source Oral Pulse Oximetry (%) 97 Oxygen Delivery Method Room Air Intake Visit Reasons: EST/arthritis pain (lobby) Intake Note: Pt c/o of arthritis pain LT hip x 4 days Allergies No Known Allergies Allergy (Verified 07/16/23 11:19) HPI EST/arthritis pain (lobby) HPI Details Patient is 68-year-old male comes to the walk-in clinic complaining of acute onset of left buttock pain with flexing at the waist over the last few days. He states he had a similar occurrence years ago that resolved with Toradol and a course of medication. He denies acute trauma or repetitive trauma causing this flare-up. He has no saddle anesthesia, severe pain waking him at night, numbness or tingling of his lower extremities, weakness, or other cauda equina symptoms or red flag symptoms. 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 Mother No problems noted. Brother No problems noted. Brother No problems noted. Social History Alcohol intake: never Years Smoked: 32 yrs Review of Systems Const All systems reviewed & are unremarkable except as noted in HPI and below Physical Exam Vital Signs: Last Vital Signs Temp 98.1 F 07/16/23 11:20 Pulse 64 07/16/23 11:20 BP 110/60 07/16/23 11:20 Pulse Ox 97 07/16/23 11:20 Oxygen Delivery Method Room Air 07/16/23 11:20 Const General: cooperative, healthy appearing, no acute distress, alert, awake, Physically active and well groomed; No diaphoretic, ill appearing, intoxicated appearing, poor hygiene or tired appearing Nutritional Appearance: average body habitus Limitations: no limitations Resp Effort & Inspection: normal respiratory effort Cardio Rate: regular rate Rhythm: regular rhythm Back/Spine/Pelvis Thoracic/Lumbar Spine: thoracic and lumbar spine normal to inspection, bend over test abnormal, No kyphosis, No mass, pain with thoraco-lumbar ROM, paraspinal muscle tenderness, thoraco-lumbar ROM limited, No thoracic spinal tenderness and No lumbar spinal tenderness Pelvis: buttock tenderness, no buttock swelling, no unilateral elevation of iliac crest and sciatic notch tenderness Sacroiliac joints: on the left Sacrum: no ecchymosis, no erythema and no swelling Skin Other: Good color, warm and dry Psych Appearance: grossly normal Mental Status: mental status grossly normal Speech and movement: Normal speech and movement present Affect: Blunted affect present Attitude: cooperative Thought process: Normal thought process present Insight: Good insight present (Psych) Judgement: Good judgement present (Psych) Assessment & Plan Assessment & Plan (1) Sciatica: Code(s): M54.30 - Sciatica, unspecified side Qualifiers: Laterality: left Qualified Code(s): M54.32 - Sciatica, left side Plan: Patient is a 68-year-old male with apparent left side sciatica symptoms. There only could aggravated when he forward flexes, and he has not trialed medication other than topical at this point. He has no red flag symptoms or worrisome symptoms. We discussed starting NSAIDs and I wrote him a course of naproxen today. He knows to take this with food. He will follow up if symptoms persist or worsen with his PCP to consider further treatment. Medications: New naproxen 500 mg PO BID PRN 28 tabs 0RF pain 14 days Coding Level of Care Code Est Pt Level 4 (03425) Diagnoses Sciatica of left side M54.32 Laterality: left
[2023-07-16 11:20] VITALS: BP 110/60; PULSE 64; TEMP 36.7; O2SAT 97
== END 2023-07-16 12:21 | disposition home or self-care (01) ==
PROVIDERS: PCP Internal Medicine; Visit Provider Physician Assistant Medical
DX: M54.32 Sciatica, left side (principal)
CPT/HCPCS: 99214

== ENCOUNTER 2023-07-20 11:01 | Outpatient (REF) | payer MEDICARE, OTHER, SELFPAY ==
[2023-07-20 13:17] LABS: MANUAL DIFF FLAG NO
[2023-07-20 13:22] LABS: Basophils Percent Auto 0.3 % (0-2); Eosinophils Absolute Auto 0.1 X10*3/uL (0.0-0.4); Eosinophils Percent Auto 1.3 % (0-4); Hematocrit 40.7 % (42.0-52.0); Hemoglobin 13.2 g/dl (14.0-18.0); Imm Gran Abs Auto 0.03 X10*3/uL (0.00-0.03); Imm Gran Pct Auto 0.5 % (0.0-0.4); Lymphocytes Absolute Auto 0.9 X10*3/uL (1.2-4.9); Lymphocytes Percent Auto 14.7 % (20-40); Mean Corpuscular HGB Conc 32.4 g/dl (31.0-36.0); Mean Corpuscular Hemoglobin 31.2 pg (27.0-33.0); Mean Corpuscular Volume 96.2 fL (80.0-98.0); Mean Platelet Volume 10.7 fL (9.4-12.4); Monocytes Absolute Auto 0.6 X10*3/uL (0.1-1.2); Monocytes Percent Auto 9.2 % (2-11); Neutrophils Absolute Auto 4.7 x10*3/uL (2.0-8.3); Platelet Count 224 X10*3/uL (160-400); Red Blood Count 4.23 X10*6/uL (4.60-5.80); Red Cell Distribution Width 12.3 % (11.0-16.0); White Blood Count 6.4 X10*3/uL (4.8-10.8)
== END 2023-07-20 11:02 | disposition home or self-care (01) ==
LOC: HO.HMGCLR 11:01
PROVIDERS: PCP Internal Medicine; Visit Provider Clinical Nurse Specialist Psychiatric/Mental Health, Adult
DX: Z79.899 Other long term (current) drug therapy (principal)
CPT/HCPCS: 36415; 85025

== ENCOUNTER 2023-08-18 14:23 | Outpatient (REF) | payer MEDICARE, OTHER, SELFPAY ==
[2023-08-18 16:08] LABS: MANUAL DIFF FLAG NO
[2023-08-18 16:14] LABS: Basophils Percent Auto 0.4 % (0-2); Eosinophils Absolute Auto 0.1 X10*3/uL (0.0-0.4); Eosinophils Percent Auto 1.7 % (0-4); Hematocrit 40.7 % (42.0-52.0); Hemoglobin 13.2 g/dl (14.0-18.0); Imm Gran Abs Auto 0.03 X10*3/uL (0.00-0.03); Imm Gran Pct Auto 0.4 % (0.0-0.4); Lymphocytes Absolute Auto 1.1 X10*3/uL (1.2-4.9); Lymphocytes Percent Auto 15.5 % (20-40); Mean Corpuscular HGB Conc 32.4 g/dl (31.0-36.0); Mean Corpuscular Hemoglobin 30.8 pg (27.0-33.0); Mean Corpuscular Volume 94.9 fL (80.0-98.0); Mean Platelet Volume 10.5 fL (9.4-12.4); Monocytes Absolute Auto 0.7 X10*3/uL (0.1-1.2); Monocytes Percent Auto 9.6 % (2-11); Neutrophils Absolute Auto 5.3 x10*3/uL (2.0-8.3); Neutrophils Percent Auto 72.4 % (45-73); Platelet Count 234 X10*3/uL (160-400); Red Blood Count 4.29 X10*6/uL (4.60-5.80); Red Cell Distribution Width 12.2 % (11.0-16.0); White Blood Count 7.3 X10*3/uL (4.8-10.8)
== END 2023-08-18 14:24 | disposition home or self-care (01) ==
LOC: HO.HMGCLR 14:23
PROVIDERS: PCP Internal Medicine; Visit Provider Clinical Nurse Specialist Psychiatric/Mental Health, Adult
DX: Z79.899 Other long term (current) drug therapy (principal)
CPT/HCPCS: 36415; 85025

== ENCOUNTER 2023-09-06 09:43 | Outpatient (AMB) | payer MEDICARE, SELFPAY ==
--- NOTE | 2023-09-06 09:45 | MHC.OFFVIS ---
Intake Vital Signs 09/06/23 09:55 Height 5 ft 8 in Weight 151 lb BMI 23.0 BP 123/61 Blood Pressure Location Rt brachial Position Sitting Pulse 71 Intake Visit Reasons: Pulmonary nodules-HX lung CA Intake Note: Patient referred by pcp Dr. Rogers for pulmonary nodules with hx of Lt lung CA. Last Chest CT dated 08-04-22. Patient was seen by Dr. Fung August 2022. Patient c/o: Awaiting order for yearly Chest CT scan. Patient has questions on txt with radiation or chemo. 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 Patient is a very complex past medical surgical history. He has had a left pneumonectomy. He has had a prostatectomy. He has no new respiratory issues or complaints. 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 Mother No problems noted. Brother No problems noted. Brother No problems noted. Social History (Updated 09/06/23 @ 09:54 by CANDE Monte) Alcohol intake: never Patient Tobacco Use Status: Former Tobacco user Quit Date: 2009 Years Smoked: 33 yrs Physical Exam Vital Signs: Last Vital Signs Pulse 71 09/06/23 09:55 BP 123/61 09/06/23 09:55 BMI result Body Mass Index 23.0 Chest Other: Left thoracotomy scars. Breath sounds right side only. GI Other: Abdomen soft. Prostatectomy port sites clean dry and intact Assessment & Plan Assessment & Plan (1) Screening for lung cancer: Code(s): Z12.2 - Encounter for screening for malignant neoplasm of respiratory organs Plan The patient is due to have his annual surveillance screening CT scan of the chest. This apparently has not been ordered. We will attempt to this. He will see me after the scan to review the results. All questions answered Coding Level of Care Code New Pt Level 4 (38314) Diagnoses Screening for lung cancer Z12.2
[2023-09-06 09:55] VITALS: BP 123/61; PULSE 71; BMI 23.0
== END 2023-09-06 10:58 | disposition home or self-care (01) ==
PROVIDERS: PCP Internal Medicine; Referring Provider Internal Medicine; Visit Provider Surgery
DX: Z12.2 Encounter for screening for malignant neoplasm of respiratory organs (principal)
CPT/HCPCS: 99204

== ENCOUNTER → 2023-09-06 09:43 | Outpatient (BNVA) | payer MEDICARE, SELFPAY | PROVIDERS: PCP Internal Medicine; Referring Provider Internal Medicine; Visit Provider Surgery | DX: Z12.2 Encounter for screening for malignant neoplasm of respiratory organs (principal) | CPT/HCPCS: 99202 ==

== ENCOUNTER 2023-09-16 09:38 | Outpatient (REF) | payer OTHER, SELFPAY ==
[2023-09-16 11:30] LABS: MANUAL DIFF FLAG NO
[2023-09-16 12:02] LABS: Basophils Percent Auto 0.2 % (0-2); Eosinophils Percent Auto 0.8 % (0-4); Hematocrit 39.5 % (42.0-52.0); Hemoglobin 12.7 g/dl (14.0-18.0); Imm Gran Abs Auto 0.02 X10*3/uL (0.00-0.03); Imm Gran Pct Auto 0.4 % (0.0-0.4); Lymphocytes Absolute Auto 0.7 X10*3/uL (1.2-4.9); Lymphocytes Percent Auto 13.5 % (20-40); Mean Corpuscular HGB Conc 32.2 g/dl (31.0-36.0); Mean Corpuscular Hemoglobin 30.5 pg (27.0-33.0); Mean Platelet Volume 10.4 fL (9.4-12.4); Monocytes Absolute Auto 0.6 X10*3/uL (0.1-1.2); Monocytes Percent Auto 11.2 % (2-11); Neutrophils Absolute Auto 3.8 x10*3/uL (2.0-8.3); Neutrophils Percent Auto 73.9 % (45-73); Platelet Count 274 X10*3/uL (160-400); Red Blood Count 4.16 X10*6/uL (4.60-5.80); Red Cell Distribution Width 12.5 % (11.0-16.0); White Blood Count 5.2 X10*3/uL (4.8-10.8)
== END 2023-09-16 09:39 | disposition home or self-care (01) ==
LOC: HO.HMGCLR 09:38
PROVIDERS: PCP Internal Medicine; Visit Provider Clinical Nurse Specialist Psychiatric/Mental Health, Adult
DX: Z79.899 Other long term (current) drug therapy (principal)
CPT/HCPCS: 36415; 85025

== ENCOUNTER 2023-10-10 07:07 | Outpatient (REF) | payer MEDICARE, SELFPAY ==
--- NOTE | ~2023-10-10 | CT_ITS ---
EXAMINATION: CT CHEST WITHOUT CONTRAST CLINICAL INFORMATION: Malignant neoplasm of bronchus. COMPARISON: Multiple previous CTs, most recent, 08/04/2022. TECHNIQUE: Multidetector volumetric CT imaging of the chest was done. Axial MIP volume rendering provided. Sagittal and coronal reformatted images were obtained. This CT examination was performed using dose optimization techniques as appropriate, variously including the following: *Automated exposure control *Adjustment of mA and/or kV according to patient size (this includes techniques or standardized protocols for targeted exams where dose is matched to indication/reason for exam; i.e. extremities or head) *Use of iterative reconstruction technique DLP: 189 mGy-cm FINDINGS: ASSISTANT PRODUCER: Post left pneumonectomy changes. LUNGS AND PLEURA: Trachea, right bronchi and left mainstem bronchus remain patent. Post left pneumonectomy changes are stable in appearance including visceral and parietal calcifications with minimal pleural fluid. Stable 2 mm subpleural RUL nodule, 5:199. No developing lung lesions, consolidations or groundglass opacities. MEDIASTINUM: Unremarkable thyroid. No pathologic lymphadenopathy. Stable post left pneumonectomy mediastinal shift. Heart size within normal limits. No pericardial effusion. Nonaneurysmal aorta. Pulmonary arteries are not enlarged. CORONARY ARTERY CALCIFICATION: None visualized on this study. PLEURA: There is no pleural effusion. No pleural mass or thickening. AXILLA: No lymphadenopathy. UPPER ABDOMEN: Unchanged left hemidiaphragmatic elevation. OSSEOUS STRUCTURES: No suspicious osseous lesions. CT/CT chest wo IV con IMPRESSION: Stable post left pneumonectomy chest and 2 mm right upper lobe nodule. No new or enlarging pulmonary nodules. Fleischner guidelines were followed.
== END 2023-10-10 07:08 | disposition home or self-care (01) ==
LOC: HO.CT 07:07
PROVIDERS: PCP Internal Medicine; Visit Provider Surgery
DX: Z12.2 Encounter for screening for malignant neoplasm of respiratory organs (principal); Z85.118 Personal history of other malignant neoplasm of bronchus and lung; Z98.890 Other specified postprocedural states
CPT/HCPCS: 71250

== ENCOUNTER 2023-10-18 09:22 | Outpatient (AMB) | payer MEDICARE, SELFPAY ==
[2023-10-18 09:32] VITALS: BP 144/73; PULSE 60; BMI 24.3
--- NOTE | 2023-10-18 09:32 | MHC.OFFVIS ---
Intake Vital Signs 10/18/23 09:32 Height 5 ft 8 in Weight 160 lb BMI 24.3 BP 144/73 H Blood Pressure Location Rt brachial Position Sitting Pulse 60 Intake Visit Reasons: Pulmonary nodules, CT results Intake Note: Patient here to discuss Chest CT on 10-10-23 results. 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 He presents here for lung cancer screening surveillance status post recent CT scan. This demonstrated a stable right lobe lung lesion. Patient himself has no new respiratory issues or complaints. His appetite, energy, and weight are stable. 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 Mother No problems noted. Brother No problems noted. Brother No problems noted. Social History Alcohol intake: never Patient Tobacco Use Status: Former Tobacco user Quit Date: 2009 Years Smoked: 33 yrs Physical Exam Vital Signs: Last Vital Signs Pulse 60 10/18/23 09:32 BP 144/73 H 10/18/23 09:32 BMI result Body Mass Index 24.3 HEENT Other: No cervical periclavicular axillary or groin adenopathy bilaterally. Chest Other: Chest breath sounds right clear. No breath sounds left status post pneumonectomy. GI Other: Abdomen soft, benign Assessment & Plan Assessment & Plan (1) History of pneumonectomy: Onset Date: ~2013 Comment: (Left pneumonectomy, [facility] - 12/31/2013) Code(s): Z98.890 - Other specified postprocedural states; Z90.2 - Acquired absence of lung [part of] Plan: Current plan is see the patient approximate 1 year's time with follow-up surveillance CT scan. All questions answered. Arrangements were made for this. (2) History of lung cancer: Code(s): Z85.118 - Personal history of other malignant neoplasm of bronchus and lung Plan: See above (3) Right pulmonary lesion: Code(s): J98.4 - Other disorders of lung Plan: See above Orders: Orders CT chest wo con - High Res 11 Months J98.4 - Other disorders of lung, Z85.118 - Personal history of other malignant neoplasm of bronchus and lung, Z90.2 - Acquired absence of lung [part of], Z98.890 - Other specified postprocedural states Coding Level of Care Code New Pt Level 4 (09443) Diagnoses History of pneumonectomy Z98.890; Z90.2 History of lung cancer Z85.118 Right pulmonary lesion J98.4
== END 2023-10-18 10:13 | disposition home or self-care (01) ==
PROVIDERS: PCP Internal Medicine; Visit Provider Surgery
DX: Z98.890 Other specified postprocedural states (principal); Z90.2 Acquired absence of lung [part of]; Z85.118 Personal history of other malignant neoplasm of bronchus and lung; J98.4 Other disorders of lung
CPT/HCPCS: 99214

== ENCOUNTER → 2023-10-18 09:22 | Outpatient (BNVA) | payer MEDICARE, SELFPAY | PROVIDERS: PCP Internal Medicine; Visit Provider Surgery | DX: J98.4 Other disorders of lung (principal); Z98.890 Other specified postprocedural states; Z90.2 Acquired absence of lung [part of]; Z85.118 Personal history of other malignant neoplasm of bronchus and lung | CPT/HCPCS: 99212 ==

== ENCOUNTER 2023-10-20 11:16 | Outpatient (REF) | payer MEDICARE, OTHER, SELFPAY ==
[2023-10-20 13:17] LABS: MANUAL DIFF FLAG NO
[2023-10-20 13:22] LABS: Basophils Percent Auto 0.6 % (0-2); Eosinophils Absolute Auto 0.2 X10*3/uL (0.0-0.4); Eosinophils Percent Auto 2.9 % (0-4); Hematocrit 40.3 % (42.0-52.0); Hemoglobin 13.2 g/dl (14.0-18.0); Imm Gran Abs Auto 0.04 X10*3/uL (0.00-0.03); Imm Gran Pct Auto 0.6 % (0.0-0.4); Lymphocytes Percent Auto 15.5 % (20-40); Mean Corpuscular HGB Conc 32.8 g/dl (31.0-36.0); Mean Corpuscular Hemoglobin 31.1 pg (27.0-33.0); Mean Corpuscular Volume 94.8 fL (80.0-98.0); Mean Platelet Volume 10.2 fL (9.4-12.4); Monocytes Absolute Auto 0.7 X10*3/uL (0.1-1.2); Monocytes Percent Auto 10.5 % (2-11); Neutrophils Absolute Auto 4.5 x10*3/uL (2.0-8.3); Neutrophils Percent Auto 69.9 % (45-73); Platelet Count 251 X10*3/uL (160-400); Red Blood Count 4.25 X10*6/uL (4.60-5.80); Red Cell Distribution Width 12.5 % (11.0-16.0); White Blood Count 6.5 X10*3/uL (4.8-10.8)
== END 2023-10-20 11:17 | disposition home or self-care (01) ==
LOC: HO.HMGCLR 11:16
PROVIDERS: PCP Internal Medicine; Visit Provider Clinical Nurse Specialist Psychiatric/Mental Health, Adult
DX: Z79.899 Other long term (current) drug therapy (principal)
CPT/HCPCS: 36415; 85025

== ENCOUNTER 2023-10-25 09:33 | Outpatient (AMB) | payer MEDICARE, SELFPAY ==
[2023-10-25 09:35] VITALS: BMI 24.3
--- NOTE | 2023-10-25 09:35 | MHC.OFFVIS ---
Intake Vital Signs 10/25/23 09:35 Height 5 ft 8 in Weight 160 lb BMI 24.3 Intake Visit Reasons: follow up LE swelling s/p RFAs ([facility]) Intake Note: Pt states that he was doing well and had a prostate surgery in 2021 and states that he lost 20 lbs, then he states he was getting swelling in his Right LE s/p shoveling 09/05/23 but states that is somewhat resolved now. Accompanied by: Self / Same As Patient Allergies No Known Allergies Allergy (Verified 10/25/23 09:39) HPI follow up LE swelling s/p RFAs ([facility]) HPI Details Very complex 66-year-old gentleman presents for follow-up regarding lower extremity swelling. He has had prior venous intervention by us. Of note he most recently had prostate surgery in [address] [facility]. He has lost weight but reports significant swelling of the lower extremities right more so than left. He now presents for follow-up evaluation. 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 Mother No problems noted. Brother No problems noted. Brother No problems noted. Social History Alcohol intake: never Patient Tobacco Use Status: Former Tobacco user Quit Date: 2009 Years Smoked: 33 yrs Physical Exam Vital Signs: BMI result Body Mass Index 24.3 Assessment & Plan Assessment & Plan (1) Varicose veins of left lower extremity with inflammation: Comment: 02/06/2021 - left GSV Radiofrequency ablation 06/12/2021 - left small saphenous vein Radiofrequency ablation Code(s): I83.12 - Varicose veins of left lower extremity with inflammation Plan: See below (2) Varicose veins of right lower extremity with inflammation: Comment: 01/09/2021 - right great saphenous vein Cyanoacralate ablation Code(s): I83.11 - Varicose veins of right lower extremity with inflammation Plan: In short patient has an element of venous insufficiency. Will plan for repeat venous insufficiency testing. Will see if any accessory veins are present and if prior ablation is are complete. Will have patient follow-up after testing. Thank you for allowing us to assist in his care. If there are any questions or concerns please do not hesitate to contact us. Orders: Orders US venous insuf bilat 1 Week I83.11 - Varicose veins of right lower extremity with inflammation Coding Level of Care Code Est Pt Level 3 (09153) Diagnoses Varicose veins of left lower extremity with inflammation I83.12 Varicose veins of right lower extremity with inflammation I83.11
== END 2023-10-25 10:01 | disposition home or self-care (01) ==
LOC: HO.HVS 09:34
PROVIDERS: PCP Internal Medicine; Visit Provider Surgery Vascular Surgery
DX: I83.12 Varicose veins of left lower extremity with inflammation (principal); I83.11 Varicose veins of right lower extremity with inflammation
CPT/HCPCS: 99213

== ENCOUNTER → 2023-10-25 09:33 | Outpatient (BNVA) | payer MEDICARE, SELFPAY | PROVIDERS: PCP Internal Medicine; Visit Provider Surgery Vascular Surgery | DX: I83.12 Varicose veins of left lower extremity with inflammation (principal); I83.11 Varicose veins of right lower extremity with inflammation | CPT/HCPCS: 99212 ==

== ENCOUNTER 2023-11-04 10:04 | Outpatient (REF) | payer MEDICARE, SELFPAY ==
--- NOTE | ~2023-11-04 | US_ITS ---
EXAMINATION: US LOWER EXTREMITY VENOUS (REFLUX EXAM), BILATERAL CLINICAL INFORMATION: Chronic venous insufficiency with lower extremity of varicose veins, pain. History of prior Venaseal of the right great saphenous vein and radiofrequency ablation of the left great and small saphenous veins COMPARISON: 06/15/2021 and 02/09/2021 TECHNIQUE: Color flow triplex imaging and compression Doppler was performed to evaluate both the deep and the superficial systems bilaterally. To evaluate the superficial system, the examination was performed in the upright position. Color-flow Doppler ultrasound and compression ultrasound were utilized. In addition, maneuvers were utilized to demonstrate reflux. FINDINGS: 1. DEEP VENOUS ULTRASOUND OF THE RIGHT LOWER EXTREMITY: Common Femoral Vein: Compressible, normal respiratory variation and augmented flow. Femoral Vein: Compressible, normal color flow and augmentation. Popliteal Vein: Compressible, normal augmentation. Deep Reflux: There is no evidence of reflux in the deep system in either the common femoral vein, superficial femoral or the popliteal vein. There is no evidence of a Cline's cyst. 2. SUPERFICIAL ULTRASOUND WITH DOPPLER OF RIGHT LOWER EXTREMITY: GREAT SAPHENOUS VEIN: Saphenofemoral Junction: 0.3 cm; Reflux: 0 ms Proximal Thigh: 0.3 cm; occluded Mid Thigh: 0.3 cm; occluded Distal Thigh: 0.3 cm; occluded At Knee: 0.2 cm; Reflux: 2836 ms Proximal Calf: 0.2 cm; Reflux: 0 ms Mid Calf: 0.2 cm; Reflux: 2872 ms Distal Calf: 0.3 cm; Reflux: 2376 ms DUPLICATED MEDIAL GREAT SAPHENOUS VEIN: Diameter: 0.2 cm Reflux: None DUPLICATED LATERAL GREAT SAPHENOUS VEIN: Diameter: None imaged Reflux: NA SMALL SAPHENOUS VEIN: Saphenopopliteal Junction: 0.5 cm; Reflux: 0 ms Mid: 0.3 cm; Reflux: 1088 ms Distal: 0.4 cm; Reflux: 2768 ms VEIN OF GIACOMINI: Size: NA Reflux: NA PERFORATORS: Location: Knee and distal calf extending into the great saphenous vein Size: 0.3 cm Reflux: Ranging from 2748 ms to 2880 ms VARICOSITIES: Location: Proximal calf Size: 0.3 cm Reflux: 3128 ms 3. DEEP VENOUS ULTRASOUND OF THE LEFT LOWER EXTREMITY: Common Femoral Vein: Compressible, normal respiratory variation and augmented flow. Femoral Vein: Compressible, normal color flow and augmentation. Popliteal Vein: Compressible, normal augmentation. Deep Reflux: There is no evidence of reflux in the deep system in either the common femoral vein, superficial femoral or the popliteal vein. There is no evidence of a Cline's cyst. 4. SUPERFICIAL ULTRASOUND WITH DOPPLER OF LEFT LOWER EXTREMITY: GREAT SAPHENOUS VEIN: Saphenofemoral Junction: 0.6 cm; Reflux: 0 ms Proximal Thigh: 0.2 cm; occluded Mid Thigh: 0.1 cm; occluded Distal Thigh: 0.1 occluded At Knee: 0.3 cm; Reflux: 2272 ms Proximal Calf: 0.4 cm; Reflux: 2988 ms Mid Calf: 0.4 cm; Reflux: 2688 ms Distal Calf: 0.2 cm; Reflux: 2640 ms DUPLICATED MEDIAL GREAT SAPHENOUS VEIN: Diameter: None imaged Reflux: NA DUPLICATED LATERAL GREAT SAPHENOUS VEIN: Diameter: None imaged. Reflux: NA SMALL SAPHENOUS VEIN: Saphenopopliteal Junction: 0.1 cm; Reflux: 2928 ms Proximal: 0.3 cm; Reflux: 0 ms Distal: 0.2 cm; Reflux: 0 ms VEIN OF GIACOMINI: Size: NA Reflux: NA PERFORATORS: Location: None imaged Size: NA Reflux: NA VARICOSITIES: Location: Proximal to mid to thigh off the residual great saphenous vein, proximal calf off the residual great saphenous vein Size: 0.3 cm Reflux: Ranging from 2896 ms to 2960 ms US/US venous insuf bilat IMPRESSION: Right: Occlusion of the right great saphenous vein through the thigh consistent with prior Venaseal. Severe reflux in the residual great saphenous vein from the knee through the calf. Severe reflux in the right small saphenous vein. Criminal Justice Lawyer veins seen at the knee and calf extending into the residual great saphenous vein. Varicose vein as described above Left: Occlusion of the left great saphenous vein through the thigh consistent with prior radiofrequency ablation. Severe reflux in the residual great saphenous vein from the through the calf. The right small saphenous vein is small in size likely from a prior radiofrequency ablation with evidence of recanalization. Multiple varicose veins as described above
== END 2023-11-04 10:05 | disposition home or self-care (01) ==
LOC: HO.US 10:04
PROVIDERS: PCP Internal Medicine; Visit Provider Surgery Vascular Surgery
DX: I83.11 Varicose veins of right lower extremity with inflammation (principal)
CPT/HCPCS: 93970

== ENCOUNTER 2023-11-14 09:17 | Outpatient (REF) | payer MEDICARE, OTHER, SELFPAY ==
[2023-11-14 11:55] LABS: Prostate Specific Antigen < 0.10 ng/mL (<0.05-4.0)
== END 2023-11-14 09:18 | disposition home or self-care (01) ==
LOC: HO.HMGCLDS 09:17
PROVIDERS: PCP Internal Medicine; Visit Provider Urology
DX: C61 Malignant neoplasm of prostate (principal); Z12.5 Encounter for screening for malignant neoplasm of prostate
CPT/HCPCS: 36415; 84153

== ENCOUNTER 2023-11-18 09:26 | Outpatient (REF) | payer OTHER, SELFPAY ==
[2023-11-18 10:30] LABS: MANUAL DIFF FLAG NO
[2023-11-18 10:38] LABS: Basophils Percent Auto 0.7 % (0-2); Eosinophils Absolute Auto 0.1 X10*3/uL (0.0-0.4); Hematocrit 42.3 % (42.0-52.0); Hemoglobin 13.9 g/dl (14.0-18.0); Imm Gran Abs Auto 0.01 X10*3/uL (0.00-0.03); Imm Gran Pct Auto 0.2 % (0.0-0.4); Lymphocytes Absolute Auto 0.9 X10*3/uL (1.2-4.9); Lymphocytes Percent Auto 16.8 % (20-40); Mean Corpuscular HGB Conc 32.9 g/dl (31.0-36.0); Mean Corpuscular Hemoglobin 30.8 pg (27.0-33.0); Mean Corpuscular Volume 93.8 fL (80.0-98.0); Mean Platelet Volume 10.2 fL (9.4-12.4); Monocytes Absolute Auto 0.5 X10*3/uL (0.1-1.2); Monocytes Percent Auto 9.8 % (2-11); Neutrophils Absolute Auto 3.8 x10*3/uL (2.0-8.3); Neutrophils Percent Auto 70.5 % (45-73); Platelet Count 223 X10*3/uL (160-400); Red Blood Count 4.51 X10*6/uL (4.60-5.80); Red Cell Distribution Width 12.4 % (11.0-16.0); White Blood Count 5.4 X10*3/uL (4.8-10.8)
== END 2023-11-18 09:27 | disposition home or self-care (01) ==
LOC: HO.HMGCLR 09:26
PROVIDERS: PCP Internal Medicine; Visit Provider Clinical Nurse Specialist Psychiatric/Mental Health, Adult
DX: Z79.899 Other long term (current) drug therapy (principal)
CPT/HCPCS: 36415; 85025

== ENCOUNTER 2023-11-29 09:29 | Outpatient (AMB) | payer MEDICARE, SELFPAY ==
--- NOTE | 2023-11-29 09:26 | A.OFFVIS_ITS ---
Intake Vital Signs 11/29/23 09:33 Height 5 ft 8 in Weight 160 lb BMI 24.3 Intake Visit Reasons: follow up 11/04/2023 Intake Note: Pt follow up [facility] 11/04/23. Pt states that his swelling has decreased through exercise daily, walking. 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 Accompanied by: Self / Same As Patient Allergies No Known Allergies Allergy (Verified 11/29/23 09:37) HPI follow up [facility] 11/04/2023 HPI Details Very pleasant 68-year-old gentleman presents for follow-up regarding venous insufficiency. He reports that postprocedure he legs are doing significantly better. He does have occasional itching in the calf ankle area which has been treated by [id number] medication by Podiatry. In general reports that the swelling has done significantly better and he feels much better in terms of his legs. He now presents for follow-up with venous insufficiency testing. 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 Mother No problems noted. Brother No problems noted. Brother No problems noted. Social History Alcohol intake: never Patient Tobacco Use Status: Former Tobacco user Quit Date: 2009 Years Smoked: 33 yrs Review of Systems Const All systems reviewed & are unremarkable except as noted in HPI and below Reports no additional complaints ENT Reports Normal hearing present Card Denies chest pain, Denies chest pain at rest, Denies chest pain with activity and Denies pedal edema Resp Denies cough GI Denies abdominal pain Musc Denies abnormal gait, Denies muscle cramps and Denies radiating pain into limb Skin/Breast Denies skin ulcer and Denies wounds Neuro Reports Normal hearing present and Denies abnormal gait Psych Reports no additional complaints Physical Exam Vital Signs: BMI result Body Mass Index 24.3 Const General: cooperative, healthy appearing and comfortable Orientation/consciousness: oriented to person, oriented to place and oriented to time HEENT Head: Yes normal to inspection Neck Neck: Yes normal visual inspection Carotids: no bruits Chest Chest palpation & inspection: normal inspection of the chest Resp Effort & Inspection: normal respiratory effort and able to speak in complete sentences Auscultation: clear to auscultation bilaterally, no crackles, no rales, no rhonchi and no wheezes Cardio Rate: regular rate Rhythm: regular rhythm Heart sounds: S1 normal heart sound present and S2 normal heart sound present Bruits: no carotid bruits Peripheral pulses: Peripheral pulses 2+ throughout GI Inspection: Yes normal to inspection Skin Wounds: no wounds Hair: normal Neuro General: oriented to person, oriented to place and oriented to time Cranial nerves: Yes CN's II-XII intact bilaterally and Yes Normal hearing present Cognition (Neuro): normal cognition Motor exam (neuro): 5/5 motor strength present throughout Extrem Other: venous exam: No significant superficial varicosities or spider telangiectasias, minimal edema General: No clubbing, No cyanosis and No edema Psych Appearance: grossly normal Mental Status: mental status grossly normal Speech and movement: Normal speech and movement present Results Reviewed Results Reviewed: Brief summary of venous insufficiency testing is as follows: right great saphenous vein: negative right small saphenous vein: Positive right accessory vein: none present left great saphenous vein: Focally positive at calf left small saphenous vein: negative left accessory vein: none present Please note there is no evidence of any venous aneurysms or significant tortuosity Assessment & Plan Assessment & Plan (1) Varicose veins of left lower extremity with inflammation: Comment: 02/06/2021 - left GSV Radiofrequency ablation 06/12/2021 - left small saphenous vein Radiofrequency ablation Code(s): I83.12 - Varicose veins of left lower extremity with inflammation Plan: In general appears to be doing well status post venous treatments. It appears that his issues currently have resolved. We discussed conservative measures including compression elevation and exercise. Should issues return would be happy to see him back. Thank you for allowing us to participate in his care. If there are any questions or concerns please do not hesitate to contact us. (2) Varicose veins of right lower extremity with inflammation: Comment: 01/09/2021 - right great saphenous vein Cyanoacralate ablation Code(s): I83.11 - Varicose veins of right lower extremity with inflammation Plan: See above Coding Level of Care Code Est Pt Level 4 (85331) Diagnoses Varicose veins of left lower extremity with inflammation I83.12 Varicose veins of right lower extremity with inflammation I83.11
[2023-11-29 09:33] VITALS: BMI 24.3
== END 2023-11-29 10:05 | disposition home or self-care (01) ==
PROVIDERS: PCP Internal Medicine; Visit Provider Surgery Vascular Surgery
DX: I83.12 Varicose veins of left lower extremity with inflammation (principal); I83.11 Varicose veins of right lower extremity with inflammation
CPT/HCPCS: 99213

== ENCOUNTER → 2023-11-29 09:29 | Outpatient (BNVA) | payer MEDICARE, SELFPAY | PROVIDERS: PCP Internal Medicine; Visit Provider Surgery Vascular Surgery | DX: I83.12 Varicose veins of left lower extremity with inflammation (principal); I83.11 Varicose veins of right lower extremity with inflammation | CPT/HCPCS: 99212 ==

== ENCOUNTER 2023-12-16 14:08 | Outpatient (REF) | payer MEDICARE, SELFPAY ==
[2023-12-16 16:08] LABS: MANUAL DIFF FLAG NO
[2023-12-16 16:32] LABS: Basophils Percent Auto 0.7 % (0-2); Eosinophils Absolute Auto 0.1 X10*3/uL (0.0-0.4); Eosinophils Percent Auto 1.6 % (0-4); Hematocrit 40.2 % (42.0-52.0); Imm Gran Abs Auto 0.02 X10*3/uL (0.00-0.03); Imm Gran Pct Auto 0.5 % (0.0-0.4); Lymphocytes Absolute Auto 0.9 X10*3/uL (1.2-4.9); Lymphocytes Percent Auto 19.6 % (20-40); Mean Corpuscular HGB Conc 32.3 g/dl (31.0-36.0); Mean Corpuscular Hemoglobin 30.3 pg (27.0-33.0); Mean Corpuscular Volume 93.7 fL (80.0-98.0); Mean Platelet Volume 10.6 fL (9.4-12.4); Monocytes Absolute Auto 0.7 X10*3/uL (0.1-1.2); Monocytes Percent Auto 15.5 % (2-11); Neutrophils Absolute Auto 2.7 x10*3/uL (2.0-8.3); Neutrophils Percent Auto 62.1 % (45-73); Platelet Count 198 X10*3/uL (160-400); Red Blood Count 4.29 X10*6/uL (4.60-5.80); Red Cell Distribution Width 12.5 % (11.0-16.0); White Blood Count 4.4 X10*3/uL (4.8-10.8)
== END 2023-12-16 14:09 | disposition home or self-care (01) ==
LOC: HO.HMGCLR 14:08
PROVIDERS: PCP Internal Medicine; Visit Provider Clinical Nurse Specialist Psychiatric/Mental Health, Adult
DX: Z79.899 Other long term (current) drug therapy (principal)
CPT/HCPCS: 36415; 85025

== ENCOUNTER 2024-01-16 09:25 | Outpatient (REF) | payer OTHER, SELFPAY ==
[2024-01-16 10:21] LABS: MANUAL DIFF FLAG NO
[2024-01-16 10:23] LABS: Basophils Percent Auto 0.6 % (0-2); Eosinophils Absolute Auto 0.1 X10*3/uL (0.0-0.4); Eosinophils Percent Auto 1.5 % (0-4); Hematocrit 42.9 % (42.0-52.0); Hemoglobin 14.1 g/dl (14.0-18.0); Imm Gran Abs Auto 0.03 X10*3/uL (0.00-0.03); Imm Gran Pct Auto 0.6 % (0.0-0.4); Lymphocytes Absolute Auto 0.8 X10*3/uL (1.2-4.9); Lymphocytes Percent Auto 15.6 % (20-40); Mean Corpuscular HGB Conc 32.9 g/dl (31.0-36.0); Mean Corpuscular Hemoglobin 30.6 pg (27.0-33.0); Mean Corpuscular Volume 93.1 fL (80.0-98.0); Mean Platelet Volume 10.3 fL (9.4-12.4); Monocytes Absolute Auto 0.6 X10*3/uL (0.1-1.2); Monocytes Percent Auto 11.5 % (2-11); Neutrophils Absolute Auto 3.8 x10*3/uL (2.0-8.3); Neutrophils Percent Auto 70.2 % (45-73); Platelet Count 218 X10*3/uL (160-400); Red Blood Count 4.61 X10*6/uL (4.60-5.80); Red Cell Distribution Width 12.7 % (11.0-16.0); White Blood Count 5.4 X10*3/uL (4.8-10.8)
== END 2024-01-16 09:26 | disposition home or self-care (01) ==
LOC: HO.HMGCLR 09:25
PROVIDERS: PCP Internal Medicine; Visit Provider Clinical Nurse Specialist Psychiatric/Mental Health, Adult
DX: Z79.899 Other long term (current) drug therapy (principal)
CPT/HCPCS: 36415; 85025

== ENCOUNTER 2024-02-16 09:24 | Outpatient (REF) | payer OTHER, SELFPAY ==
[2024-02-16 10:14] LABS: MANUAL DIFF FLAG NO
[2024-02-16 10:18] LABS: Basophils Percent Auto 0.7 % (0-2); Eosinophils Absolute Auto 0.1 X10*3/uL (0.0-0.4); Eosinophils Percent Auto 1.7 % (0-4); Hematocrit 41.5 % (42.0-52.0); Hemoglobin 13.7 g/dl (14.0-18.0); Imm Gran Abs Auto 0.02 X10*3/uL (0.00-0.03); Imm Gran Pct Auto 0.5 % (0.0-0.4); Lymphocytes Absolute Auto 0.7 X10*3/uL (1.2-4.9); Lymphocytes Percent Auto 17.1 % (20-40); Mean Corpuscular Hemoglobin 30.5 pg (27.0-33.0); Mean Corpuscular Volume 92.4 fL (80.0-98.0); Mean Platelet Volume 9.8 fL (9.4-12.4); Monocytes Absolute Auto 0.4 X10*3/uL (0.1-1.2); Monocytes Percent Auto 10.4 % (2-11); Neutrophils Absolute Auto 2.8 x10*3/uL (2.0-8.3); Neutrophils Percent Auto 69.6 % (45-73); Platelet Count 206 X10*3/uL (160-400); Red Blood Count 4.49 X10*6/uL (4.60-5.80); Red Cell Distribution Width 13.1 % (11.0-16.0)
== END 2024-02-16 09:25 | disposition home or self-care (01) ==
LOC: HO.HMGCLR 09:24
PROVIDERS: PCP Internal Medicine; Visit Provider Clinical Nurse Specialist Psychiatric/Mental Health, Adult
DX: Z79.899 Other long term (current) drug therapy (principal)
CPT/HCPCS: 36415; 85025

== ENCOUNTER 2024-02-17 13:15 | Emergency (ER) | payer MEDICARE, SELFPAY ==
[2024-02-17 13:17] VITALS: BP 117/61; PULSE 67; RESP 16; TEMP 36.6; O2SAT 99; BMI 24.2
--- NOTE | 2024-02-17 13:17 | ED.GENADULT ---
HPI - General Adult General Chief complaint: Ear Problems Stated complaint: cotton stuck in ear ? Time Seen by Provider: 02/17/24 13:21 Source: patient Mode of arrival: ambulatory Limitations: no limitations History of Present Illness ED Provider: Lazara Leone PA-C HPI narrative: Patient is a 68 year old assigned male at with a history of COPD and lung cancer presenting to the emergency department today with cotton stuck in his right ear. Patient states that he used a q-tip to clean his ear while in the shower and felt like he got some stuck in his right ear. Patient denies any dizziness, lightheadedness, abdominal pain, nausea, vomiting, fever, chills, blurry vision, double vision, loss of vision, chest pain, difficulty breathing, shortness of breath, back pain, night sweats, pain with urination, increased urinary frequency, increased urinary urgency, blood in his urine or stool, syncope or a near syncopal episode, recent trauma or falls, bowel incontinence, bladder incontinence, or any other complaints at this time. Onset (ago): minute(s) Location: right (ear) Severity: mild Relieving factors: none Exacerbating factors: none Associated symptoms: denies other symptoms Treatments prior to arrival: none Related Data Home Medications ?Medication ?Instructions ?Recorded ?Confirmed cholecalciferol (vitamin D3) 10 10 mcg PO DAILY 12/16/20 09/03/22 mcg (400 unit) capsule clozapine 100 mg tablet 300 mg PO BEDTIME 09/22/21 09/03/22 ammonium lactate 12 % topical cream 1 appl topical BID 11/29/23 Previous Rx's ?Medication ?Instructions ?Recorded sodium chloride 0.65 % nasal spray 2 spray intranasal TID #15 mL 11/12/20 aerosol (Posen Saline) bisacodyl 5 mg tablet,delayed 10 mg (2 x 5 mg) PO ONCE 1 day #2 09/29/21 release (Dulcolax (bisacodyl)) tabs polyethylene glycol 3350 17 238 g PO ONCE #238 grams 09/29/21 gram/dose oral powder (Miralax) Allergies Allergy/AdvReac Type Severity Reaction Status Date / Time No Known Allergies Allergy Verified 02/17/24 13:18 Review of Systems Constitutional: Constitutional: Reports no additional constitutional complaints, Denies chills, Denies fever(s) and Denies night sweats Eyes: Eyes: Reports no additional eye complaints, Denies blurry vision, Denies change in vision, Denies diplopia, Denies eye discharge, Denies loss of vision and Denies eye pain ENT: Denies dizziness Comments: cotton stuck in right ear Cardiovascular: Cardiovascular: Reports no additional cardiovascular complaints, Denies chest pain, Denies lightheadedness, Denies Loss of Consciousness and Denies dyspnea Respiratory: Respiratory: Reports no additional respiratory complaints and Denies dyspnea Gastrointestinal: Gastrointestinal: Reports no additional gastrointestinal complaints, Denies abdominal pain, Denies melena, Denies hematochezia, Denies change in bowel habits and Denies change in stool character Genitourinary: Genitourinary: Reports no additional male genitourinary complaints, Denies hematuria, Denies oliguria, Denies difficulty urinating, Denies dysuria, Denies urinary frequency, Denies urinary hesitancy, Denies urinary incontinence and Denies urinary urgency Musculoskeletal: Musculoskeletal: Reports no additional musculoskeletal complaints, Denies numbness and Denies tingling Neurologic: Denies dizziness, Denies loss of vision, Denies numbness and Denies tingling Psychiatric: Psychiatric: Reports no additional psychiatric complaints Endocrine: Endocrine: Reports no additional endocrine complaints Hematologic/Lymphatic: Hematologic/Lymphatic: Reports no additional hematologic/lymphatic complaints Allergic/Immunologic: Allergic/Immunologic: Reports no additional allergic/immunologic complaints [facility] Past Medical History Attestation statement: The following information was validated with the patient. 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 Mother No problems noted. Brother No problems noted. Brother No problems noted. Social History Social History Alcohol intake: never Patient Tobacco Use Status: Former Tobacco user Years Smoked: 33 yrs Advance Directives: No Advance Directives Information Provided: No Do you have a plan to hurt others: No Plan Physical Exam ED Vital Signs: Vital Signs - 24 hr 02/17/24 13:17 02/17/24 13:29 Temperature 97.8 F 97.8 F Pulse Rate 67 67 Respiratory Rate 16 16 Blood Pressure 117/61 117/61 Pulse Oximetry 99 99 Oxygen Delivery Method Room Air Room Air BMI result Body Mass Index 24.2 Const General: cooperative, no acute distress, alert and awake Nutritional Appearance: well nourished Orientation/consciousness: patient oriented x3 Limitations: no limitations HENMT Head: Yes normal to inspection and Yes atraumatic Ears: hearing grossly normal bilaterally, external ears normal and Abnormal EAC present foreign body on the right General nose exam: Normal external nose present, no nasal discharge noted and no epistaxis Face and sinus: Yes normal facial exam, No abrasion and No laceration Mouth: Normal oral and palatal mucosa present, no drooling and no muffled voice Eyes General: appearance normal, both eyes and all related structures Periorbital: periorbital findings normal Eyelids: Yes eyelids normal Conjunctivae: conjunctivae normal Pupils: Equal, round and reactive pupils present EOM: EOMs intact bilaterally Neck Neck: Yes normal visual inspection, Yes full ROM and Yes no lymphadenopathy Chest Chest palpation & inspection: normal inspection of the chest Resp Effort & Inspection: normal respiratory effort and able to speak in complete sentences GI Inspection: Yes normal to inspection Neuro General: patient oriented x3 and moves all extremities Cranial nerves: Yes Equal, round and reactive pupils present Cognition (Neuro): normal cognition Motor exam (neuro): 5/5 motor strength present throughout Sensory Exam: Normal double simultaneous stimulation for sensation Coordination: [id number] test normal Extrem General: Yes normal to inspection, Yes full ROM and Yes capillary refill normal Psych Appearance: grossly normal Mental Status: mental status grossly normal Affect: normal affect Attitude: cooperative Thought process: Normal thought process present Thought content: Normal thought content present Insight: Good insight present (Psych) Procedures FB Removal Ear Location: ear canal (R) Foreign Body Suspected: other (cotton) TM intact pre-procedure: unable to visualize Foreign Body Removed: yes Foreign Body Removal Technique: forceps Tympanic Membrane Intact Post Procedure: Yes Patient Tolerated Procedure: well Complications: none Medical Decision Making Medical Decision Making MDM Narrative: Patient is a 68 year old assigned male at with a history of COPD and lung cancer presenting to the emergency department today with cotton retained in his right ear. Patient's physical exam showed cotton in his right ear canal. I explained my physical exam findings to the patient. I answered all questions asked by the patient. I removed the piece of cotton with alligator forceps, without incident. I stressed the importance of the patient taking his medication as prescribed. I stressed the importance of the patient following up with his primary care provider. I stressed the importance of the patient returning to the emergency department immediately if he were to develop any dizziness, shortness of breath, difficulty breathing, chest pain, blurry vision, loss of vision, nausea, vomiting, abdominal pain, fever, chills, back pain, or any other complaints. Patient verbalized agreement and understanding with this treatment plan and discharge. Differential Diagnosis Differential Diagnoses: The differential diagnosis associated with the presentation includes Foreign body in ear Admission/Observation Consideration of admission/observation: Escalation of care including admission/observation considered Patient would have been admitted to the hospital had his clinical presentation warranted hospital admission. Discharge Plan Discharge Clinical Impression: Foreign body in ear Patient Disposition: Home, Self-Care Instructions: Ear Foreign Body (ED) Additional Instructions: Please refrain from q-tip use. Follow up with your primary care provider. Return to the emergency department immediately if you develop any dizziness, shortness of breath, difficulty breathing, chest pain, blurry vision, loss of vision, nausea, vomiting, abdominal pain, fever, chills, back pain, or any other complaints. Prescriptions: No Action sodium chloride [Posen Saline] 0.65 % aerosol,spray 2 spray intranasal TID Qty: 15 1RF cholecalciferol (vitamin D3) 10 mcg (400 unit) capsule 10 mcg PO DAILY clozapine 100 mg tablet 300 mg PO BEDTIME bisacodyl [Dulcolax (bisacodyl)] 5 mg tablet,delayed release (DR/EC) 10 mg PO ONCE 1 Days Qty: 2 0RF Rx Instructions: take 2 tabs at noon the day before your colonoscopy polyethylene glycol 3350 [Miralax] 17 gram/dose powder 238 g PO ONCE Qty: 238 0RF Rx Instructions: As directed by gastroenterology department at [facility] ammonium lactate 12 % cream 1 appl topical BID Referrals: Narinder Rogers DO [Primary Care Provider] - Interventions: ED Discharge Assessment Last Done: 02/17/24 13:29 Discharge Date/Time: 02/17/24 13:29 Print Language: Amharic
[2024-02-17 13:29] VITALS: BP 117/61; PULSE 67; RESP 16; TEMP 36.6; O2SAT 99
--- OUTSIDE RECORDS SUMMARY | 2024-02-23 06:45 | XMS_ITS | Patient Health Record ---
[facility] aflonso Jose Alfredo Address [address] [place] [address] Care Team Providers Care [employer] Worker Name Role Phone Narinder Rogers MD Primary Care Provider Unavail able Mary Mason Unavailable [phone] ALLERGIES No Known Allergies REASON FOR REFERRAL Diagnosis 1 Plantar wart (B07.0) Diagnosis 2 Atherosclerosis of a rtery of both lower extremities (I70.203) Diagnosis 3 Tinea unguium (B35.1 ) Diagnosis 4 Pain in right toe(s) (M79.674) Diagnosis 5 Pain in left toe(s) (M79.675) Diagnosis 6 Xerosis cutis (L85.3 ) Diagnosis 7 Edema, lower extremi ty (R60.0) Referring Provider First Name Narinder Referring Provider Last Name Ken Referred Organization [facility] Jose Alfredo Referred Provider Mary Mason Referred Address [address] [facility],[place], [place],[address], Referred Provider Specialty Podiatry Referral Priority Routine MEDICATIONS Medication SIG (Take, Route, Frequency, Duration) Notes Start Date End Date Status Ammonium Lactate 12 % APPLY TO AFFECTED AREA(S) ON FEET TWO TIMES A DAY DIRECTED for 30 Active Vitamin D Not-Taking Tylenol TopCare Not-Taking cloZAPine 100 MG 3 tablet Orally before bed Active zzzCompression Stockings 20-30mm Hg . . . for . Not-Taking Compression Stockings 20-30mm Hg as directed 05/30/2020 Not-Taking IMMUNIZATIONS Vaccine Route Administration Date Status Comme [...] Notes Problem Plantar wart (B07.0) Active confirmed 38952536 Problem Atherosclerosis of artery of both lower extremities (I70.203) Active confirmed [id number] VITAL SIGNS Blood pressure diastolic 80 mm Hg 03/30/2023 Height 5ft 8in in 01/11/2024 Blood pressure systolic 120 mm Hg 03/30/2023 Weight 155 lbs 01/11/2024 BMI 23.57 kg/m2 01/11/2024 Encounters Encounter Location Date Provider Diagnosis [address] [address] 03/30/2023 Mary Perica Tinea unguium B35.1 ; Atherosclerosis of artery of both lower extremities I70.203 ; Pain in right toe(s) M79.674 and Pain in left toe(s) M79.[address] [address] 06/14/2023 Mary Perica Atherosclerosis of artery of both lower extremities I70.203 ; Metatarsalgia of right foot M77.41 ; Tinea unguium B35.1 ; Pain in right toe(s) M79.674 and Pain in left toe(s) M79.[address] [address] 08/19/2023 Mary Perica Atherosclerosis of artery of both lower extremities I70.203 ; Tinea unguium B35.1 ; Pain in right toe(s) M79.674 and Pain in left toe(s) M79.[address] [address] 09/08/2023 Mary Perica [address] [address] 09/23/2023 Mary Mason Edema, lower extremi ty R60.0 ; Atherosclerosis of artery of both lower extremities I70.203 ; Pain in left foot M79.672 and Pain in right foot M79.[address] [address] 09/23/2023 Mary Perica [address] [address] 10/13/2023 Mary Perica [address] [address] 10/13/2023 Mary Perica [address] [address] 11/01/2023 Mary Mason Atherosclerosis of artery of both lower extremities I70.203 ; Edema, lower extremity R60.0 ; Tinea unguium B35.1 ; Pain in right toe(s) M79.674 and Pain in left toe(s) M79.[address] [address] 01/11/2024 Mary Mason Atherosclerosis of artery of both lower extremities I70.203 ; Edema, lower extremity R60.0 ; Tinea unguium B35.1 ; Pain in right toe(s) M79.674 and Pain in left toe(s) M79.675 ASSESSMENTS Encounter Date Diagnosis Assessment Notes Treatment Notes Treatment Clinical Notes 03/30/2023 Tinea unguium (ICD-1 0 - B35.1) 03/30/2023 Atherosclerosis of artery of both lower extremities (ICD-10 - I70.203) 06/14/2023 Metatarsalgia of rig ht foot (ICD-10 - M77.41) 06/14/2023 Atherosclerosis of artery of both lower extremities (ICD-10 - I70.203) 08/19/2023 Atherosclerosis of artery of both lower extremities (ICD-10 - I70.203) 09/23/2023 Atherosclerosis of artery of both lower extremities (ICD-10 - I70.203) 09/23/2023 Edema, lower extremi ty (ICD-10 - R60.0) 11/01/2023 Atherosclerosis of artery of both lower extremities (ICD-10 - I70.203) 11/01/2023 Edema, lower extremi ty (ICD-10 - R60.0) 01/11/2024 Atherosclerosis of artery of both lower extremities (ICD-10 - I70.203) 01/11/2024 Edema, lower extremi ty (ICD-10 - R60.0) 09/23/2023 Pain in left foot (ICD-10 - M79.672) 01/11/2024 Tinea unguium (ICD-1 0 - B35.1) 11/01/2023 Tinea unguium (ICD-1 0 - B35.1) 08/19/2023 Tinea unguium (ICD-1 0 - B35.1) 06/14/2023 Tinea unguium (ICD-1 0 - B35.1) 03/30/2023 Pain in right toe(s) (ICD-10 - M79.674) 03/30/2023 Pain in left toe(s) (ICD-10 - M79.675) 06/14/2023 Pain in right toe(s) (ICD-10 - M79.674) 08/19/2023 Pain in right toe(s) (ICD-10 - M79.674) 11/01/2023 Pain in right toe(s) (ICD-10 - M79.674) 09/23/2023 Pain in right foot (ICD-10 - M79.671) 01/11/2024 Pain in right toe(s) (ICD-10 - M79.674) 01/11/2024 Pain in left toe(s) (ICD-10 - M79.675) 11/01/2023 Pain in left toe(s) (ICD-10 - M79.675) 08/19/2023 Pain in left toe(s) (ICD-10 - M79.675) 06/14/2023 Pain in left toe(s) (ICD-10 - M79.675) PLAN OF TREATMENT Pending Test Test Name Order Date X ray : Foot, left 3V 09/23/2023 X ray : Foot, right 3V 02/27/2021 X ray : Foot, right 3V 09/23/2023 Next Appt Details Provider Name:Maryjannet garcia, 03/21/2024 02:30:00 PM, [address] [place], [address], Insurance Providers Payer Name Payer Address Payer Phone Subscriber Number Group Number Insured Name Patient Relationship to Insured Coverage Start Date Coverage End Date [facility] 65 Medicare [address] [place] [address] [id number] Minor Max Self - patient is the insured MEDICAL (GENERAL) HISTORY Medical History History ICD Code Prostate cancer Surgical History Surgery Date(Month/Year) leg surgery- both legs- veins 01/2021
--- OUTSIDE RECORDS SUMMARY | 2024-02-23 06:45 | XMS_ITS | Patient Health Record ---
Author Organization Carl Zafar MD Address [address] [place] [id number] Care Team Providers Care Sider Name Role Phone Narinder Ruby DO Primary Care Provider Unavail aCrl Allen Unavailable [phone] ALLERGIES No Known Allergies REASON FOR REFERRAL No Information MEDICATIONS Medication SIG (Take, Route, Fr equency, Duration) Notes Start Date End Date Status Furosemide 20 MG 1 tablet Orally Once a day for 30 day(s) 09/23/2023 Active Ammonium Lactate 12 % 1 application Exte rnally Twice a day Active cloZAPine 100 MG 1 tablet on the tong ue and allow to dissolve Orally Once a day for 30 day(s) Active SOCIAL HISTORY Sex Assigned At : Social History Observation Description Sex Assigned At Unknown PROBLEMS Problem Type ICD Code Onset Dates Problem Status W/U Status Risk SNOMED Code Notes Problem Chronic venous insufficiency (I87.2) Active confirmed 19771008 Problem History of lung cancer (Z85.118) Active confirmed 774217492 Problem History of prostate cancer (Z85.46) Active confirmed 754861640 Encounters Encounter Location Date Provider Diagnosis Carl Zafar MD [address] [place] [phone] 09/23/2023 Carl Zafar Chronic venous insufficiency I87.2 ; History of lung cancer Z85.118 and History of prostate cancer Z85.46 ASSESSMENTS Encounter Date Diagnosis Assessment Notes Treatment Notes Treatment Clinical Notes 09/23/2023 History of lung cancer (ICD-10 - Z85.118) followed by dr saravia 09/23/2023 Chronic venous insufficiency (ICD-10 - I87.2) have him follow up with dr ruby in few weeks 09/23/2023 History of prostate cancer (ICD-10 - Z85.46) followed by dr german PLAN OF TREATMENT No Information Insurance Providers Payer Name Payer Address Payer Phone Subscriber Number Group Number Insured Name Patient Relationship to Insured Coverage Start Date Coverage End Date [employer] [address] [place], [place] [id number] Minor Max Self - patient is the insured
== END 2024-02-17 13:29 | disposition home or self-care (01) ==
PROVIDERS: Emergency Provider Emergency Medicine; PCP Internal Medicine
DX: T16.1XXA Foreign body in right ear, initial encounter (principal); W44.8XXA Other foreign body entering into or through a natural orifice, initial encounter; Y93.9 Activity, unspecified; Y92.9 Unspecified place or not applicable; Y99.8 Other external cause status; Z79.899 Other long term (current) drug therapy
CPT/HCPCS: 69200; 99282; 99283; 99284

== ENCOUNTER 2024-03-17 10:49 | Outpatient (REF) | payer OTHER, SELFPAY ==
[2024-03-17 12:42] LABS: MANUAL DIFF FLAG NO
[2024-03-17 12:53] LABS: Basophils Percent Auto 0.5 % (0-2); Eosinophils Absolute Auto 0.1 X10*3/uL (0.0-0.4); Eosinophils Percent Auto 1.3 % (0-4); Hemoglobin 13.4 g/dl (14.0-18.0); Imm Gran Abs Auto 0.03 X10*3/uL (0.00-0.03); Imm Gran Pct Auto 0.5 % (0.0-0.4); Lymphocytes Absolute Auto 0.7 X10*3/uL (1.2-4.9); Lymphocytes Percent Auto 13.2 % (20-40); Mean Corpuscular HGB Conc 33.5 g/dl (31.0-36.0); Mean Corpuscular Hemoglobin 31.1 pg (27.0-33.0); Mean Corpuscular Volume 92.8 fL (80.0-98.0); Mean Platelet Volume 10.5 fL (9.4-12.4); Monocytes Absolute Auto 0.5 X10*3/uL (0.1-1.2); Monocytes Percent Auto 9.6 % (2-11); Neutrophils Absolute Auto 4.1 x10*3/uL (2.0-8.3); Neutrophils Percent Auto 74.9 % (45-73); Platelet Count 204 X10*3/uL (160-400); Red Blood Count 4.31 X10*6/uL (4.60-5.80); Red Cell Distribution Width 12.9 % (11.0-16.0); White Blood Count 5.5 X10*3/uL (4.8-10.8)
== END 2024-03-17 10:50 | disposition home or self-care (01) ==
LOC: HO.HMGCLR 10:49
PROVIDERS: Psychiatry & Neurology Psychiatry; PCP Internal Medicine
DX: Z79.899 Other long term (current) drug therapy (principal)
CPT/HCPCS: 36415; 85025

== ENCOUNTER 2024-04-16 09:23 | Outpatient (REF) | payer OTHER, SELFPAY ==
[2024-04-16 10:32] LABS: MANUAL DIFF FLAG NO
[2024-04-16 10:38] LABS: Basophils Percent Auto 0.6 % (0-2); Eosinophils Absolute Auto 0.1 X10*3/uL (0.0-0.4); Eosinophils Percent Auto 1.2 % (0-4); Hematocrit 41.3 % (42.0-52.0); Hemoglobin 13.7 g/dl (14.0-18.0); Imm Gran Abs Auto 0.02 X10*3/uL (0.00-0.03); Imm Gran Pct Auto 0.4 % (0.0-0.4); Lymphocytes Absolute Auto 0.8 X10*3/uL (1.2-4.9); Lymphocytes Percent Auto 14.6 % (20-40); Mean Corpuscular HGB Conc 33.2 g/dl (31.0-36.0); Mean Corpuscular Volume 93.4 fL (80.0-98.0); Mean Platelet Volume 10.3 fL (9.4-12.4); Monocytes Absolute Auto 0.6 X10*3/uL (0.1-1.2); Monocytes Percent Auto 10.7 % (2-11); Neutrophils Absolute Auto 3.7 x10*3/uL (2.0-8.3); Neutrophils Percent Auto 72.5 % (45-73); Platelet Count 213 X10*3/uL (160-400); Red Blood Count 4.42 X10*6/uL (4.60-5.80); Red Cell Distribution Width 12.7 % (11.0-16.0); White Blood Count 5.1 X10*3/uL (4.8-10.8)
== END 2024-04-16 09:24 | disposition home or self-care (01) ==
LOC: HO.HMGCLR 09:23
PROVIDERS: PCP Internal Medicine
DX: Z79.899 Other long term (current) drug therapy (principal)
CPT/HCPCS: 36415; 85025

== ENCOUNTER 2024-06-08 10:19 | Outpatient (REF) | payer OTHER, SELFPAY ==
[2024-06-08 13:20] LABS: MANUAL DIFF FLAG NO
[2024-06-08 13:30] LABS: Basophils Percent Auto 0.6 % (0-2); Eosinophils Absolute Auto 0.1 X10*3/uL (0.0-0.4); Eosinophils Percent Auto 2.2 % (0-4); Hematocrit 41.9 % (42.0-52.0); Hemoglobin 13.8 g/dl (14.0-18.0); Imm Gran Abs Auto 0.02 X10*3/uL (0.00-0.03); Imm Gran Pct Auto 0.4 % (0.0-0.4); Lymphocytes Absolute Auto 0.7 X10*3/uL (1.2-4.9); Lymphocytes Percent Auto 14.3 % (20-40); Mean Corpuscular HGB Conc 32.9 g/dl (31.0-36.0); Mean Corpuscular Hemoglobin 30.8 pg (27.0-33.0); Mean Corpuscular Volume 93.5 fL (80.0-98.0); Mean Platelet Volume 10.5 fL (9.4-12.4); Monocytes Absolute Auto 0.6 X10*3/uL (0.1-1.2); Monocytes Percent Auto 11.2 % (2-11); Neutrophils Absolute Auto 3.5 x10*3/uL (2.0-8.3); Neutrophils Percent Auto 71.3 % (45-73); Platelet Count 210 X10*3/uL (160-400); Red Blood Count 4.48 X10*6/uL (4.60-5.80); Red Cell Distribution Width 12.5 % (11.0-16.0); White Blood Count 4.9 X10*3/uL (4.8-10.8)
== END 2024-06-08 10:20 | disposition home or self-care (01) ==
LOC: HO.HMGCLR 10:19
PROVIDERS: PCP Internal Medicine; Visit Provider Psychiatry & Neurology Psychiatry
DX: Z79.899 Other long term (current) drug therapy (principal)
CPT/HCPCS: 36415; 85025

== ENCOUNTER 2024-07-06 07:56 | Outpatient (REF) | payer OTHER, SELFPAY ==
[2024-07-06 10:06] LABS: Basophils Percent Auto 0.5 % (0-2); Eosinophils Absolute Auto 0.1 X10*3/uL (0.0-0.4); Eosinophils Percent Auto 1.2 % (0-4); Hematocrit 42.1 % (42.0-52.0); Hemoglobin 13.8 g/dl (14.0-18.0); Imm Gran Abs Auto 0.01 X10*3/uL (0.00-0.03); Imm Gran Pct Auto 0.2 % (0.0-0.4); Lymphocytes Absolute Auto 0.6 X10*3/uL (1.2-4.9); Lymphocytes Percent Auto 13.3 % (20-40); MANUAL DIFF FLAG NO; Mean Corpuscular HGB Conc 32.8 g/dl (31.0-36.0); Mean Corpuscular Hemoglobin 30.5 pg (27.0-33.0); Mean Corpuscular Volume 92.9 fL (80.0-98.0); Mean Platelet Volume 10.5 fL (9.4-12.4); Monocytes Absolute Auto 0.6 X10*3/uL (0.1-1.2); Monocytes Percent Auto 15.5 % (2-11); Neutrophils Absolute Auto 2.9 x10*3/uL (2.0-8.3); Neutrophils Percent Auto 69.3 % (45-73); Platelet Count 200 X10*3/uL (160-400); Red Blood Count 4.53 X10*6/uL (4.60-5.80); Red Cell Distribution Width 12.4 % (11.0-16.0); White Blood Count 4.1 X10*3/uL (4.8-10.8)
== END 2024-07-06 07:57 | disposition home or self-care (01) ==
LOC: HO.HMGCLR 07:56
PROVIDERS: PCP Internal Medicine; Visit Provider Psychiatry & Neurology Psychiatry
DX: Z79.899 Other long term (current) drug therapy (principal)
CPT/HCPCS: 36415; 85025

== ENCOUNTER 2024-08-16 09:23 | Outpatient (REF) | payer OTHER, SELFPAY ==
[2024-08-16 13:39] LABS: MANUAL DIFF FLAG NO
[2024-08-16 13:45] LABS: Basophils Absolute Auto 0.1 X10*3/uL (0.0-0.2); Basophils Percent Auto 0.6 % (0-2); Eosinophils Absolute Auto 0.1 X10*3/uL (0.0-0.4); Hematocrit 41.1 % (42.0-52.0); Hemoglobin 13.4 g/dl (14.0-18.0); Imm Gran Abs Auto 0.04 X10*3/uL (0.00-0.03); Imm Gran Pct Auto 0.5 % (0.0-0.4); Lymphocytes Absolute Auto 0.8 X10*3/uL (1.2-4.9); Lymphocytes Percent Auto 8.9 % (20-40); Mean Corpuscular HGB Conc 32.6 g/dl (31.0-36.0); Mean Corpuscular Hemoglobin 31.1 pg (27.0-33.0); Mean Corpuscular Volume 95.4 fL (80.0-98.0); Mean Platelet Volume 10.4 fL (9.4-12.4); Monocytes Absolute Auto 0.9 X10*3/uL (0.1-1.2); Monocytes Percent Auto 10.2 % (2-11); Neutrophils Absolute Auto 6.9 x10*3/uL (2.0-8.3); Neutrophils Percent Auto 78.8 % (45-73); Platelet Count 223 X10*3/uL (160-400); Red Blood Count 4.31 X10*6/uL (4.60-5.80); Red Cell Distribution Width 12.5 % (11.0-16.0); White Blood Count 8.8 X10*3/uL (4.8-10.8)
== END 2024-08-16 09:24 | disposition home or self-care (01) ==
LOC: HO.HMGCLR 09:23
PROVIDERS: PCP Internal Medicine; Visit Provider Psychiatry & Neurology Psychiatry
DX: Z79.899 Other long term (current) drug therapy (principal)
CPT/HCPCS: 36415; 85025

== ENCOUNTER 2024-10-09 07:03 | Outpatient (REF) | payer MEDICARE, SELFPAY | END 2024-10-09 07:04 | disposition home or self-care (01) | LOC: HO.CT 07:03 | PROVIDERS: PCP Internal Medicine; Visit Provider Surgery | DX: J98.4 Other disorders of lung (principal); Z85.118 Personal history of other malignant neoplasm of bronchus and lung; Z90.2 Acquired absence of lung [part of]; Z98.890 Other specified postprocedural states | CPT/HCPCS: 71250 ==

== ENCOUNTER → 2024-10-09 07:05 | Outpatient (BNV) | payer MEDICARE, SELFPAY | PROVIDERS: PCP Internal Medicine; Visit Provider Radiology Diagnostic Radiology | DX: Z85.118 Personal history of other malignant neoplasm of bronchus and lung (principal) | CPT/HCPCS: 71250 ==

== ENCOUNTER 2024-10-15 09:28 | Outpatient (REF) | payer MEDICARE, OTHER, SELFPAY ==
--- OUTSIDE RECORDS SUMMARY | 2024-10-15 09:31 | XMS_ITS ---
Author Organization [facility] Tyler alfonso [place] Address [address] [facility] [place] [address] Care Team Providers Care Software Quality Assurance Analyst Name Role Phone Chester Teresa Primary Care Provider [phone] Mary Mason Unavailable [phone] Allergies No Known Allergies REASON FOR VISIT At Risk Footcare, Skin Problem Medications Medication SIG (Take, Route, Frequency, Duration) Notes Start Date End Date Status Ciclopirox Olamine 0.77 % 1 application Externally Twice a day to skin of feet including between the toes for 30 days Active Compression Stockings 20-30mm Hg as directed 05/30/2020 Not-Taking Vitamin D Not-Taking zzzCompression Stockings 20-30mm Hg . . . for . Not-Taking Tylenol TopCare Not-Taking cloZAPine 50 MG 1 tablet Orally Once a day Active Ammonium Lactate 12 % APPLY TO AFFECTED AREA(S) ON FEET TWO TIMES A DAY DIRECTED for 30 Not-Taking Social History Tobacco Use: Social History Observation Description Date Details (start date - stop date) Never Smoker NA - NA Tobacco use other than smoking: Question Answer Notes Are you an other tobacco user? No Tobacco Control (Standard) Question Answer Notes Tobacco use: Nonsmoker Vital Signs Height 5ft7in in 10/10/2024 Weight 155 lbs 10/10/2024 BMI 24.27 kg/m2 10/10/2024 Blood pressure systolic 115 mm Hg 10/10/19 25 Blood pressure diastolic 65 mm Hg 025 Encounters Encounter Location Date Provider Diagnosis [facility] [address] [place] [address] 10/10/2024 Mary Mason Atherosclerosis of artery of both lower extremities I70.203 ; Tinea unguium B35.1 ; Pain in right toe(s) M79.674 ; Pain in left toe(s) M79.675 and Tinea pedis of both feet B35.3 Assessments Encounter Date Diagnosis (ICD Code) Assessment Notes Treatment Notes Treatment Clinical Notes Section Notes 10/10/2024 Atherosclerosis of artery of both lower extremities (ICD-10 - I70.203) 10/10/2024 Tinea unguium (ICD-10 - B35.1) 10/10/2024 Pain in right toe(s) (ICD-10 - M79.674) 10/10/2024 Pain in left toe(s) (ICD-10 - M79.675) 10/10/2024 Tinea pedis of both feet (ICD-10 - B35.3) Plan Of Treatment Medication Medication Name Sig Start Date Stop Date Notes Ciclopirox Olamine 0.77 % 1 application Externally Twice a day to skin of feet including between the toes for 30 days Next Appt Details Follow Up: 2 Months, Reason: Provider Name:Mary garcia, 12/12/2024 01:30:00 PM, [address] [place] [address], [phone], Provider Name:Mary garcia, 02/12/2025 01:30:00 PM, [address] [place] [address], [phone], Procedure Notes * Category Sub-Category Detail Notes Debride Nail 6-10 Nail debridement Due to the cl inical pathology outlined in the exam findings, performance of this nail treatment is medically necessary as its management by an unskilled/untrained nonprofessional would put this patients foot and overall health at risk. Therefore, debridement to affected nail(s), as described in exam ( TA, T1, T2, T3, T4, T5, T6, T7, T8, T9, ), was performed exclusively by the physician of record to reduce/remove overall nail length, girth, thickness, subungual debris, and necrotic tissue, by manual and/or electrical means through the use of a nail nipper and/or dremel-type precision grinder, to a more viable healthy nail plate or bed tissue 6-10 nails in total. Silver nitrate was used for any petechial bleeding as necessary. Definitive antifungal treatment options, both pharmaceutical and surgical, have been reviewed and discussed with the patient. The patient solely prefers the use of intermittent/as needed professional debridement services for their nail condition and understands the need for additional periodic treatments to maintain effectiveness in symptomatic relief - 76454 Keratoma Treatment Parring or Cutting o f Benign Hyperkeratotic Lesion(s) , (-55) 1 Lesion - Due to the at risk nature of the patients medical condition as documented in the exam findings, performance of this keratoderma treatment is medically necessary as its management by an unskilled/untrained nonprofessional would put this patients foot and overall health at risk. Therefore, the benign hyperkeratotic lesion, 1 in total, as stated and described in the exam ( Sub met 1 right ), was pared, and/or cut utilizing a sterile 15 blade, tissue nippers, and/or power dremel instrumentation by the physician of record - 16498 Progress Notes * Minor DOMINGUEZ MDOB:1954 (69 yo M)Acc No.[id number]:10/10/2024 Progress Note Patient:?Minor DOMINGUEZ Provider:?Mary Mason DPM :1955???Age:69 Y???Sex:Male Rafat e:10/10/2024 Address:[address] [place] [address] [id number] Pcp:Chester Teresa Subjective: * Chief Complaints: * ???At Risk FootcareSkin Prob mary * HPI: ???At Risk footcare:?Pt States Last PCP Visit:?Date?09/15/2023 ???Skin problems:?Nature:?scaling , redness.?Location:?B/L .?Duration:?several days.?Course:?worse.? * ROS:?General/Constitutional:?Nausea?denies.?Vomiting?denies.?Hunger Thirst?denies.?Loss appetite?denies.?Chills?denies.?Fatigue?admits.?Fever?denies.?Night Sweats?denies.?Unexplained weight loss?denies.?Unexplained weight gain?denies.?HEENTM:?Dentures?denies.?Dizziness?denies.?Glasses/contacts?denies.?Retinopathy?de nies.?Blurred/double vision?denies.?TMJ?denies.?Discharge/drainage?denies.?Implants?denies.?Sore throat?denies.?Dental implants?denies.?Hard of hearing ?denies.?Difficulty chewing/swallowing/speaking?denies.?Nose bleeds?denies.?Sore mouth?denies.?Respiratory:?On Oxygen?denies.?Pneumonia/pleurisy?denies.?Bronchitis?denies.?Emphysema?denies.?C oughing?denies.?Cough blood?denies.?Shortness of breath?denies.?Wheezing?denies.?Cardiovascular:?Pacemaker?denies.?MVP?denies.?WPW?denies.?CHF?denies.?Heart attack?denies.?Septal defect?denies.?Rapid beat?denies.?Chest pain ?denies.?Atrial Fib.?denies.?Murmur/Palpitations?denies.?Gastrointestinal:?Hemorrhoids?denies.?Stomach/Abdominal pain?denies.?Dark blood stool?denies.?Irritable bowel ?denies.?Constipation?denies.?Diarrhea?denies.?Hematology:?Swelling?admits.?Clots?denies.?Varicose Veins?denies.?Bruising?denies.?Bleeding problem?denies.?Genitourinary:?Blood urine?denies.?Frequent/Painfu/urination/bladder control?denies.?Kidney stones?denies.?Infection (UTI)?denies.?Nephropathy?denies.?sex trans dis (STD)?denies.?Prostate?denies.?Musculoskeletal:?Hammertoes?denies.?Bunions?denies.?Back Pain?admits.?Muscle Cramps/ Resting?denies.?Muscle cramps / walking?admits.?Generalized aches and pains?admits.?Weakness?admits.?Integ.:?Winters?denies.?Scars?denies.?Corns/calluses?admits.?Ingrown nails?denies.?Painful nails?admits.?Open Sores?denies.?Rashes?denies.?Neurologic:?Difficulty sleeping?denies.?Brain disorder?denies.?Numbness?denies.?Balance trouble?denies.?Confusion?denies.?Fainting/blackouts?denies.?Tingling?denies.?Tr emors?denies.? * Medical History:? * Surgical History:?leg surger y- both legs- veins 01/2021 * Hospitalization/Major Diagno stic Procedure:?Denies Past Hospitalization * Family History:?Mother: dece ased.?Father: .? * Social History:?Tobacco Use:?Tobacco use other than smoking?Are you an other tobacco user??No ?Tobacco Control (Standard)?Tobacco use:?Nonsmoker ???Miscellaneous:?Caffeine: yes, frequency:, 1 cup per day. ?Children: no, none. ?Exercise: yes, walking , couple hours a day. ?Marital status: single. 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 * Medications:?TakingcloZAPine 50 MG Tablet 1 tablet Orally Once a day Taking cloZAPine 50 MG Tablet 1 tablet Orally Once a day Not-Taking/PRNAmmonium Lactate 12 % Cream APPLY TO AFFECTED AREA(S) ON FEET TWO TIMES A DAY DIRECTED Tylenol , Notes to Pharmacist: TopCareVitamin D Compression Stockings 20-30mm Hg closed toe- knee high as directed zzzCompression Stockings 20-30mm Hg 1 pair closed toe- knee high . . . Medication List reviewed and reconciled with the patientNot-Taking/PRN Ammonium Lactate 12 % Cream APPLY TO AFFECTED AREA(S) ON FEET TWO TIMES A DAY DIRECTED Not-Taking/PRN Tylenol , Notes to Pharmacist: TopCareNot-Taking/PRN Vitamin D Not-Taking/PRN Compression Stockings 20-30mm Hg closed toe- knee high as directed Not-Taking/PRN zzzCompression Stockings 20-30mm Hg 1 pair closed toe- knee high . . . Medication List reviewed and reconciled with the patient * Allergies:?N.K.D.A.yes[Indira caldwell Verified] Objective: * Vitals:?Ht: 5ft7in, Wt:155, BMI:24.27, Shoe size: 10.5-11, BP:115/65mm Hg, Ht- cm: 170.18 cm, Wt-k.31 kg. * Examination: ???Dermatologic: ?SKIN FINDINGS:? Skin exam reveals Keratotic lesion(s) located at, ?SUB MTH (s)1,right , Skin shows sign(s) of, erythema, scaling, in a moccasin fashion, no fissure(s) present, B/L.?Nails: ?NAILS are:?Elongated, overgrown, dystrophic, lytic, greater than 3mm thick, discolored and friable with crumbly malodorous subungual debris, with pain on palpation, , TA, T1, T2, T3, T4, T5, T6, T7, T8, T9.?General Examination: ?GENERAL APPEARANCE:?Reveals a pleasant, alert, well nourished, well- developed, well hydrated individual, who demonstrates proper attention to hygiene/body habitus, and is in no acute distress, Pt serves as own historian for office visit today.?ORIENTED:?person, place, and time.?Orthopedic: ?MUSCLE STRENGTH:?5/5 all groups in a symmetrical fashion, B/L.?Vascular: ?DP PULSES (B):?0/4, B/L.?PT PULSES (B):? 0/4, B/L.?CAPILLARY FILL TIME:? delayed, all digits, B/L.?TROPHIC CONDITION-TEXTURE/ELASTICITY/TURGOR/HAIR GROWTH (B):? decreased, B/L.?TEMPERTURE GRADIENT (C):? decreased, cool to cool, proximal to distal, B/L.?PIGMENTATION:? pale, B/L, brawny.?EDEMA (C):? 1/4 pitting B/L Leg(s) without aching pain.?PINKY'S SIGN:?absent, B/L.?PALPABLE CORDS:?absent, B/L.?COMPRESSION STOCKINGS:?Absent.? Assessment: * Assessment: 1.?Atherosclerosis of artery of both lower extremities - I70.203???2.?Tinea unguium - B35.1 (Primary)???3.?Pain in right toe(s) - M79.674???4.?Pain in left toe(s) - M79.675???5.?Tinea pedis of both feet - B35.3???Specify :Acute problem, Uncomplicated (3),Rx drug management (4)??? Plan: * Treatment: * Procedures:?Debride Nail 6-10:?Nail debridement?Due to the clinical pathology outlined in the exam findings, performance of this nail treatment is medically necessary as its management by an unskilled/untrained nonprofessional would put this patients foot and overall health at risk. Therefore, debridement to affected nail(s), as described in exam ( TA, T1, T2, T3, T4, T5, T6, T7, T8, T9, ), was performed exclusively by the physician of record to reduce/remove overall nail length, girth, thickness, subungual debris, and necrotic tissue, by manual and/or electrical means through the use of a nail nipper and/or dremel-type precision grinder, to a more viable healthy nail plate or bed tissue 6- 10 nails in total. Silver nitrate was used for any petechial bleeding as necessary. Definitive antifungal treatment options, both pharmaceutical and surgical, have been reviewed and discussed with the patient. The patient solely prefers the use of intermittent/as needed professional debridement services for their nail condition and understands the need for additional periodic treatments to maintain effectiveness in symptomatic relief - 19932.?Keratoma Treatment:?Parring or Cutting of Benign Hyperkeratotic Lesion(s)?, (-55) 1 Lesion - Due to the at risk nature of the patients medical condition as documented in the exam findings, performance of this keratoderma treatment is medically necessary as its management by an unskilled/untrained nonprofessional would put this patients foot and overall health at risk. Therefore, the benign hyperkeratotic lesion, 1 in total, as stated and described in the exam ( Sub met 1 right?), was pared, and/or cut utilizing a sterile 15 blade, tissue nippers, and/or power dremel instrumentation by the physician of record - 88520.? * Procedure Codes:?90294 DEBRI DE NAIL, 6 OR MORE, Modifiers: XS 54090 TRIM SKIN LESION, Modifiers: XS , Q8 * Preventive Medicine:? ??Counseling:?Discussion:?-13: Office or other outpatient visit for the evaluation and management of an established patient, which required a medically appropriate history and/or examination and LOW level of DECISION MAKING for: 1 STABLE ACUTE UNCOMPLICATED PROBLEM, 2 OR MORE MINOR PROBLEMS, OR 1 STABLE CHRONIC PROBLEM, THAT POSE(S) A LOW RISK FOR MORBIDITY/MORTALITY. The visit on the day of the encounter encompassed interpreting the data and educating the patient as to the nature of their condition, treatment options available according to their individual PMH, meds, allergies, and overall health/living conditions, as well as any potential risks or complications that may occur from a failure to adhere to, and participate in, the recommended course of therapy. The discussion included a complete verbal, and/or written explanation of the examination results, any x-rays taken, the proposed diagnosis, and outline of the treatment plan. A schedule for future care needs was also explained. The patient verbalized an understanding of the instructions at this time and agreed to be an active participant in their treatment. If the patient should think of any questions or concerns after the visit, I have encouraged the patient to call the office.?Tinea Pedis:?The patient was counseled on the diagnosis, potential etiologies, and treatment options for their skin condition. We discussed the risks and benefits of each option from performing no treatment, to utilizing OTC topical skin creams, prescription topical creams, customized compounded topical medications, and, if necessary, to utilize oral antifungal therapy. We discussed the advantages and disadvantages of each possible treatment and importance for adherence to all the recommended therapies for optimum success and avoid potential complications such as open sore/infection/possible hospitalization. We discussed the potential effectiveness of each topical preparation as well as each ones possible side effects and/or patient medication interactions if oral therapy is selected. Patient questions re: the advantages and disadvantages of each treatment choice, medication use/dosage, successful outcomes, and application consistency were reviewed and the patient verbalized that all answers were clearly understood. The patient was told they can help alleviate symptoms by utilizing moisture absorbant innersoles with activated charcoal and baking soda, applying antifungal sprays daily, aerating toe web spaces at night by putting cotton or lambs wool between the toes, alternating shoe gear daily if possible so they can dry out, changing socks at least once during the day, wearing well-ventilated shoes or sandals. The patient has decided to apply antifungal skin creams to their feet as directed. Rx was sent to their pharmacy at the time of visit.? ??Screening/Special Tests:?Fall Risk?Screening:?No falls in the past year ?FALLS: Screening for Future Fall Risk?Have you had any falls with injury in the past year??No * Follow Up:?2 Months * Images: * Sign off status: Completed true * Provider:?Mary Mason DPM Date:?07/2025 Generated for Pedro Luis jaramillo/Bobby/Mouna on:?10/15/2024 09:31 AM EST History and Physical Notes * HPI (History of Present Illness) Category Sub-Category Detail Notes Category Not es Skin problems Nature: scaling , redness Location: B/L Duration: several days Course: worse At Risk footcare Pt States Last PCP Visit: Date: 4 Examination Category Sub-Category Detail Notes Category Not es Dermatologic SKIN FINDINGS: Skin exam reveal s Keratotic lesion(s) located at, SUB MTH (s)1,right , Skin shows sign(s) of, erythema, scaling, in a moccasin fashion, no fissure(s) present, B/L Orthopedic MUSCLE STRENGTH: 5/5 all groups in a symmetrical fashion, B/L General Examination GENERAL APPEARANCE: Reveals a pleasant, alert, well nourished, well-developed, well hydrated individual, who demonstrates proper attention to hygiene/body habitus, and is in no acute distress, Pt serves as own historian for office visit today ORIENTED: person, place, and t marino Vascular DP PULSES (B): 0/4, B/L PT PULSES (B): 0/4, B/L CAPILLARY FILL TIME: delayed, all digits , B/L TEMPERTURE GRADIENT (C): decreased, cool to cool, proximal to distal, B/L TROPHIC CONDITION-TEXTURE/ELASTICITY/TURGOR/HAIR GROWTH (B): decreased, B/L EDEMA (C): 1/4 pitting B/L Leg( s) without aching pain PINKY'S SIGN: absent, B/L PALPABLE CORDS: absent, B/L PIGMENTATION: pale, B/L, brawny COMPRESSION STOCKINGS: Absent Nails NAILS are: Elongated, overg rown, dystrophic, lytic, greater than 3mm thick, discolored and friable with crumbly malodorous subungual debris, with pain on palpation, , TA, T1, T2, T3, T4, T5, T6, T7, T8, T9
--- OUTSIDE RECORDS SUMMARY | 2024-10-15 09:32 | XMS_ITS | Patient Health Record ---
Author Organization [facility] Tyler alfonso [place] Address [address] [place] [address] Care Team Providers Care Public Health Dietitian Name Role Phone Chester Teresa Primary Care Provider Mary Mason Unavailable [phone] Allergies No Known Allergies Reason For Referral Diagnosis 1 Plantar wart (B07.0) Diagnosis 2 Atherosclerosis of a rtery of both lower extremities (I70.203) Diagnosis 3 Tinea unguium (B35.1 ) Diagnosis 4 Pain in right toe(s) (M79.674) Diagnosis 5 Pain in left toe(s) (M79.675) Diagnosis 6 Xerosis cutis (L85.3 ) Diagnosis 7 Edema, lower extremi ty (R60.0) Referring Provider First Name Narinder Referring Provider Last Name Ken [facility] Jose Alfredo Referred Provider Mary Mason Referred Address [address] [facility],[place], [place],[address], Referred Provider Specialty Podiatry Referral Priority Routine Medications Medication SIG (Take, Route, Frequency, Duration) Notes Start Date End Date Status cloZAPine 50 MG 1 tablet Orally Once a day Active Ciclopirox Olamine 0.77 % 1 application Externally Twice a day to skin of feet including between the toes for 30 days Active Compression Stockings 20-30mm Hg as directed 05/30/2020 Not-Taking Vitamin D Not-Taking zzzCompression Stockings 20-30mm Hg . . . for . Not-Taking Tylenol TopCare Not-Taking Ammonium Lactate 12 % APPLY TO AFFECTED AREA(S) ON FEET TWO TIMES A DAY DIRECTED for 30 Not-Taking Immunizations Vaccine Route Administration Date Status Comme nts COVID-19 [facility]key [employer] Vickey/Devin Unknown 08/01/2021 A dministered Influenza Unknown 06/09/2021 Refused Social History Tobacco Use: Social History Observation Description Date Details (start date - stop date) Never Smoker NA - NA Alcohol Screen Question Answer Notes Did you have a drink containing alcohol in the p ast year? No Points 0 Interpretation Negative Tobacco use other than smoking: Question Answer Notes Are you an other tobacco user? No Tobacco Control (Standard) Question Answer Notes Tobacco use: Nonsmoker Problems Problem Type SNOMED Code ICD Code Onset Dates Problem Status W/U Status Risk Notes Problem [id number] Plantar wart (B07.0) Active confirmed Problem [id number] Atherosclerosi s of artery of both lower extremities (I70.203) Active confirmed Vital Signs Blood pressure diastolic 65 mm Hg 10/10/2024 Height 5ft7in in 10/10/2024 Blood pressure systolic 115 mm Hg 10/10/2024 Weight 155 lbs 10/10/2024 BMI 24.27 kg/m2 10/10/2024 Encounters Encounter Location Date Provider Diagnosis [address] [address] 11/01/2023 Mary Perica Atherosclerosis of artery of both lower extremities I70.203 ; Edema, lower extremity R60.0 ; Tinea unguium B35.1 ; Pain in right toe(s) M79.674 and Pain in left toe(s) M79.[address] [address] 01/11/2024 Mary Perica Atherosclerosis of artery of both lower extremities I70.203 ; Edema, lower extremity R60.0 ; Tinea unguium B35.1 ; Pain in right toe(s) M79.674 and Pain in left toe(s) M79.[address] [address] 03/21/2024 Mary Perica Atherosclerosis of artery of both lower extremities I70.203 ; Edema, lower extremity R60.0 ; Tinea unguium B35.1 ; Pain in right toe(s) M79.674 and Pain in left toe(s) M79.[address] [address] 06/05/2024 Mary Perica Atherosclerosis of artery of both lower extremities I70.203 ; Tinea unguium B35.1 ; Pain in right toe(s) M79.674 and Pain in left toe(s) M79.[address] [address] 08/07/2024 Mary Perica Atherosclerosis of artery of both lower extremities I70.203 ; Tinea unguium B35.1 ; Pain in right toe(s) M79.674 and Pain in left toe(s) M79.[address] [address] 10/10/2024 Mary Perica Atherosclerosis of artery of both lower extremities I70.203 ; Tinea unguium B35.1 ; Pain in right toe(s) M79.674 ; Pain in left toe(s) M79.675 and Tinea pedis of both feet B35.3 Assessments Encounter Date Diagnosis (ICD Code) Assessment Notes Treatment Notes Treatment Clinical Notes Section Notes 11/01/2023 Atherosclerosis of artery of both lower extremities (ICD-10 - I70.203) 11/01/2023 Edema, lower extremity (ICD-10 - R60.0) 01/11/2024 Atherosclerosis of artery of both lower extremities (ICD-10 - I70.203) 03/21/2024 Atherosclerosis of artery of both lower extremities (ICD-10 - I70.203) 03/21/2024 Edema, lower extremity (ICD-10 - R60.0) 06/05/2024 Tinea unguium (ICD-10 - B35.1) 06/05/2024 Atherosclerosis of artery of both lower extremities (ICD-10 - I70.203) 08/07/2024 Tinea unguium (ICD-10 - B35.1) 08/07/2024 Atherosclerosis of artery of both lower extremities (ICD-10 - I70.203) 10/10/2024 Atherosclerosis of artery of both lower extremities (ICD-10 - I70.203) 10/10/2024 Tinea unguium (ICD-10 - B35.1) 08/07/2024 Pain in right toe(s) (ICD-10 - M79.674) 06/05/2024 Pain in right toe(s) (ICD-10 - M79.674) 01/11/2024 Edema, lower extremity (ICD-10 - R60.0) 03/21/2024 Tinea unguium (ICD-10 - B35.1) 01/11/2024 Tinea unguium (ICD-10 - B35.1) 11/01/2023 Tinea unguium (ICD-10 - B35.1) 11/01/2023 Pain in right toe(s) (ICD-10 - M79.674) 01/11/2024 Pain in right toe(s) (ICD-10 - M79.674) 03/21/2024 Pain in right toe(s) (ICD-10 - M79.674) 06/05/2024 Pain in left toe(s) (ICD-10 - M79.675) 08/07/2024 Pain in left toe(s) (ICD-10 - M79.675) 10/10/2024 Pain in right toe(s) (ICD-10 - M79.674) 10/10/2024 Pain in left toe(s) (ICD-10 - M79.675) 03/21/2024 Pain in left toe(s) (ICD-10 - M79.675) 01/11/2024 Pain in left toe(s) (ICD-10 - M79.675) 11/01/2023 Pain in left toe(s) (ICD-10 - M79.675) 10/10/2024 Tinea pedis of both feet (ICD-10 - B35.3) Plan Of Treatment Pending Test Test Name Order Date X ray : Foot, left 3V 09/23/2023 X ray : Foot, right 3V 02/27/2021 X ray : Foot, right 3V 09/23/2023 Next Appt Details Provider Name:Mary garcia, 12/12/2024 01:30:00 PM, [address] [place] [address], [phone], Provider Name:Mary garcia, 02/12/2025 01:30:00 PM, [address] [place], [address], Insurance Providers Payer Name Payer Address Payer Phone Subscriber Number Group Number Insured Name Patient Relationship to Insured Coverage Start Date Coverage End Date [employer] 65 Medicare Preferred [address] [place] [address] [id number] Minor Max Self - patient is the insured Medical (General) History Medical History History ICD Code Prostate cancer Surgical History Surgery Date(Month/Year) leg surgery- both legs- veins 01/2021
--- OUTSIDE RECORDS SUMMARY | 2024-10-15 09:32 | XMS_ITS | Patient Health Record ---
Author Organization Carl Zafar MD Address [address] [place], [place] [address] Care Team Providers Care Shop Lead Name Role Phone Narinder Rogers DO Primary Care Provider Unavail able Allergies No Known Allergies Reason For Referral No Information Medications Medication SIG (Take, Route, Fr equency, Duration) Notes Start Date End Date Status Furosemide 20 MG 1 tablet Orally Once a day for 30 day(s) 09/23/2023 Active Ammonium Lactate 12 % 1 application Exte rnally Twice a day Active cloZAPine 100 MG 1 tablet on the tong ue and allow to dissolve Orally Once a day for 30 day(s) Active Problems Problem Type SNOMED Code ICD Code Onset Dates Problem Status W/U Status Risk Notes Problem 316596159 History of prostate cancer (Z85.46) Active confirmed Problem 637147007 History of lung cancer (Z85.118) Active confirmed Problem 81646687 Chronic venous insufficiency (I87.2) Active confirmed Plan Of Treatment No Information Insurance Providers Payer Name Payer Address Payer Phone Subscriber Number Group Number Insured Name Patient Relationship to Insured Coverage Start Date Coverage End Date BLUE CROSS AND BLUE SHIELD [address] [place], [place] [id number] Minor Max Self - patient is the insured
--- OUTSIDE RECORDS SUMMARY | 2024-10-15 09:33 | XMS_ITS ---
Author Organization Narinder Rogers DO, FACMarshall Address [address] [place], [place] [address] Care Team Providers Care Needle Loom Weaver Name Role Phone Narinder Rogers Primary Care Provider REASON FOR VISIT FYI only Encounters Encounter Location Date Provider Diagnosis Narinder Rogers DO, FACP [address] [place] [phone] 10/24/2023 Narinder Rogers PLAN OF TREATMENT No Information
--- OUTSIDE RECORDS SUMMARY | 2024-10-15 09:33 | XMS_ITS ---
Author Organization [facility] Tyler alfonso [place] Address [address] [place] [address] Care Team Providers Care Director Trial Name Role Phone Chester Teresa Primary Care Provider [phone] Mary Mason Unavailable [phone] Allergies No Known Allergies REASON FOR VISIT At Risk Footcare Medications Medication SIG (Take, Route, Frequency, Duration) Notes Start Date End Date Status Ammonium Lactate 12 % APPLY TO AFFECTED AREA(S) ON FEET TWO TIMES A DAY DIRECTED for 30 Active Vitamin D Not-Taking Tylenol TopCare Not-Taking zzzCompression Stockings 20-30mm Hg . . . for . Not-Taking Compression Stockings 20-30mm Hg as directed 05/30/2020 Not-Taking cloZAPine 100 MG 3 tablet Orally before bed 75 MG Active Social History Tobacco Use: Social History Observation Description Date Details (start date - stop date) Former Smoker NA - NA Tobacco Use/Smoking Question Answer Notes Are you a: former smoker Additional Findings: Tobacco Non-User Current no n-smoker Alcohol Screen Question Answer Notes Did you have a drink containing alcohol in the p ast year? No Points 0 Interpretation Negative Tobacco use other than smoking: Question Answer Notes Are you an other tobacco user? No Vital Signs Height 5ft 8in in 06/05/2024 Weight 155 lbs 06/05/2024 BMI 23.57 kg/m2 06/05/2024 Encounters Encounter Location Date Provider Diagnosis [facility] [address] [place] [address] 06/05/2024 Mary Mason Atherosclerosis of artery of both lower extremities I70.203 ; Tinea unguium B35.1 ; Pain in right toe(s) M79.674 and Pain in left toe(s) M79.675 Assessments Encounter Date Diagnosis (ICD Code) Assessment Notes Treatment Notes Treatment Clinical Notes Section Notes 06/05/2024 Atherosclerosis of artery of both lower extremities (ICD-10 - I70.203) 06/05/2024 Tinea unguium (ICD-10 - B35.1) 06/05/2024 Pain in right toe(s) (ICD-10 - M79.674) 06/05/2024 Pain in left toe(s) (ICD-10 - M79.675) Plan Of Treatment Next Appt Details Follow Up: 2 Months, Reason: Provider Name:Mary gacria, 12/12/2024 01:30:00 PM, [address] [place] [address], [phone], Provider Name:Mary garcia, 02/12/2025 01:30:00 PM, [address] [place] [address], [phone], Procedure Notes * Category Sub-Category Detail Notes Debride Nail 6-10 Nail debridement Nail debridem ent performed extensively to reduce/remove overall nail length and girth, subungual debris, and necrotic tissue, by manual and electrical means with use of a nail nipper and/or dremel, to more viable healthy nail plate or bed tissue 6-10. Silver nitrate used for any petechial bleeding as necessary. Patient chooses, no pharmaceutical tx (07486) Keratoma Treatment Parring or Cutting o f Benign Hyperkeratotic Lesion(s) (-56) 2-4 Lesions - The Benign hyperkeratotic lesions, as described above were pared, and/or cut utilizing a sterile 15 blade, tissue nippers, and/or dremel - 29400, Q8 Progress Notes * Minor DOMINGUEZ MDOB:1954 (69 yo M)Acc No.[id number]:06/05/2024 Progress Note Patient:?Minor Dominguez Provider:?Mary Mason DPM :1955???Age:69 Y???Sex:Male Rafat e:06/05/2024 Address:[address], [place] Pcp:Narinder Rogers MD Subjective: * Chief Complaints: * ???At Risk Footcare * HPI: ???At Risk footcare:?Pt States Last PCP Visit:?Date?09/15/2023 * ROS:?General/Constitutional:?Nausea?denies.?Vomiting?denies.?Hunger Thirst?denies.?Loss appetite?denies.?Chills?denies.?Fatigue?admits.?Fever?denies.?Night Sweats?denies.?Unexplained weight loss?denies.?Unexplained [...] dece ased.?Father: .? * Social History:?Tobacco Use:?Tobacco Use/Smoking?Are you a:?former smoker ?Additional Findings: Tobacco Non-User?Current non-smoker ?Tobacco use other than smoking?Are you an other tobacco user??No ???Drugs/Alcohol:?Drugs?Have you used drugs other than those for medical reasons in the past 12 months??No ?Alcohol Screen?Did you have a drink containing alcohol in the past year??No ?Points?0 ?Interpretation?Negative ???Miscellaneous:?Caffeine: yes, frequency:, 1 cup per day. ?no Children, none. ?Exercise: yes, walking , couple hours a day. ?Marital status: single. 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 * Medications:?TakingcloZAPine 100 MG Tablet 3 tablet Orally before bed, Notes: 75 MGAmmonium Lactate 12 % Cream APPLY TO AFFECTED AREA(S) ON FEET TWO TIMES A DAY DIRECTED Taking cloZAPine 100 MG Tablet 3 tablet Orally before bed, Notes: 75 MGTaking Ammonium Lactate 12 % Cream APPLY TO AFFECTED AREA(S) ON FEET TWO TIMES A DAY DIRECTED Not-Taking/PRNTylenol , Notes: TopCareVitamin D Compression Stockings 20-30mm Hg closed toe- knee high as directed zzzCompression Stockings 20-30mm Hg 1 pair closed toe- knee high . . .Medication List reviewed and reconciled with the patientNot-Taking/PRN Tylenol , Notes: TopCareNot-Taking/PRN Vitamin D Not- Taking/PRN Compression Stockings 20-30mm Hg closed toe- knee high as directed Not- Taking/PRN zzzCompression Stockings 20-30mm Hg 1 pair closed toe- knee high . . .Medication List reviewed and reconciled with the patient * Allergies:?N.K.D.A.yes[Aller gies Verified] Objective: * Vitals:?Ht: 5ft 8in, Wt:155, BMI:23.57, Shoe size: 10.5-11, Ht-cm: 172.72 cm, Wt-k.31 kg. * Examination: ???Dermatologic: ?SKIN FINDINGS:? Skin exam reveals Keratotic lesion(s) located at, TA, ?T5,?SUB MTH (s)1,right.?Nails: ?NAILS are:?Elongated, overgrown, dystrophic, lytic, greater than 3mm thick, discolored and friable with crumbly malodorous subungual debris, with pain on palpation, 1-5 B/L.?General Examination: ?GENERAL APPEARANCE:?Reveals a pleasant, alert, well nourished, well- developed, well hydrated individual, who demonstrates proper attention to hygiene/body habitus, and is in no acute distress, Pt serves as own historian for office visit today.?ORIENTED:?person, place, and time.?Orthopedic: ?MUSCLE STRENGTH:?5/5 all groups in a symmetrical fashion, B/L.?Vascular: ?DP PULSES(B):?0/4, B/L.?PT PULSES(B):? 0/4, B/L.?CAPILLARY FILL TIME:? delayed, all digits, B/L.?TROPHIC CONDITION-TEXTURE/ELASTICITY/TURGOR/HAIR GROWTH(B):? decreased, B/L.?TEMPERTURE GRADIENT(C):? decreased, cool to cool, proximal to distal, B/L.?PIGMENTATION:? pale, B/L, brawny.?EDEMA(C):? 1/4 pitting B/L Leg(s) without aching pain.?PINKY'S SIGN:?absent, B/L.?PALPABLE CORDS:?absent, B/L.?COMPRESSION STOCKINGS:?Absent.? Assessment: * Assessment: 1.?Tinea unguium - B35.1?2.? Atherosclerosis of artery of both lower extremities - I70.203 (Primary)?3.?Pain in right toe(s) - M79.548?4.?Pain in left toe(s) - M79.676? Plan: * Treatment: * Procedures:?Debride Nail 6-10:?Nail debridement?Nail debridement performed extensively to reduce/remove overall nail length and girth, subungual debris, and necrotic tissue, by manual and electrical means with use of a nail nipper and/or dremel, to more viable healthy nail plate or bed tissue 6-10. Silver nitrate used for any petechial bleeding as necessary. Patient chooses, no pharmaceutical tx (99526).?Keratoma Treatment:?Parring or Cutting of Benign Hyperkeratotic Lesion(s)?(-56) 2-4 Lesions - The Benign hyperkeratotic lesions, as described above were pared, and/or cut utilizing a sterile 15 blade, tissue nippers, and/or dremel - 34834, Q8.? * Procedure Codes:?20068 DEBRI DE NAIL, 6 OR MORE, Modifiers: XS 22234 TRIM SKIN LESIONS, 2 TO 4, Modifiers: XS , Q8 * Follow Up:?2 Months * Images: * Sign off status: Completed true * Provider:?Mary Mason DPM Date:?03/2024 Generated for Pedro Luis jaramillo/Bobby/Mouna on:?10/15/2024 09:32 AM EST History and Physical Notes * HPI (History of Present Illness) Category Sub-Category Detail Notes Category Not es At Risk footcare Pt States Last PCP Visit: Date: 4 Examination Category Sub-Category Detail Notes Category Not es Dermatologic SKIN FINDINGS: Skin exam reveal s Keratotic lesion(s) located at, TA, T5, SUB MTH (s)1,right Orthopedic MUSCLE STRENGTH: 5/5 all groups in [...] malodorous subungual debris, with pain on palpation, 1-5 B/L
--- OUTSIDE RECORDS SUMMARY | 2024-10-15 09:33 | XMS_ITS ---
Author Organization Narinder Rogers DO, [facility] Address [address] [place], [place] [address] Care Team Providers Care Electric Transfer Operator Name Role Phone Narinder Rogers Primary Care Provider REASON FOR VISIT FYI Encounters Encounter Location Date Provider Diagnosis Narinder Rogers DO, FACP [address] [place] [phone] 02/17/2024 Narinder Rogers PLAN OF TREATMENT No Information
[2024-10-15 10:18] LABS: MANUAL DIFF FLAG NO
[2024-10-15 10:23] LABS: Basophils Percent Auto 0.7 % (0-2); Eosinophils Absolute Auto 0.1 X10*3/uL (0.0-0.4); Eosinophils Percent Auto 1.1 % (0-4); Hematocrit 41.1 % (42.0-52.0); Hemoglobin 13.4 g/dl (14.0-18.0); Imm Gran Abs Auto 0.02 X10*3/uL (0.00-0.03); Imm Gran Pct Auto 0.4 % (0.0-0.4); Lymphocytes Absolute Auto 0.8 X10*3/uL (1.2-4.9); Mean Corpuscular HGB Conc 32.6 g/dl (31.0-36.0); Mean Corpuscular Hemoglobin 30.7 pg (27.0-33.0); Mean Corpuscular Volume 94.3 fL (80.0-98.0); Mean Platelet Volume 10.5 fL (9.4-12.4); Monocytes Absolute Auto 0.5 X10*3/uL (0.1-1.2); Neutrophils Absolute Auto 3.9 x10*3/uL (2.0-8.3); Neutrophils Percent Auto 72.8 % (45-73); Platelet Count 223 X10*3/uL (160-400); Red Blood Count 4.36 X10*6/uL (4.60-5.80); Red Cell Distribution Width 12.3 % (11.0-16.0); White Blood Count 5.4 X10*3/uL (4.8-10.8)
== END 2024-10-15 09:29 | disposition home or self-care (01) ==
LOC: HO.HMGCLR 09:28
PROVIDERS: PCP Internal Medicine; Visit Provider Psychiatry & Neurology Psychiatry
DX: Z79.899 Other long term (current) drug therapy (principal)
CPT/HCPCS: 36415; 85025

== ENCOUNTER 2024-10-30 08:53 | Outpatient (AMB) | payer MEDICARE, SELFPAY ==
--- NOTE | 2024-10-30 09:01 | A.OFFVIS_ITS ---
Intake Visit Reasons: CT follow up Intake Note: Patient here to discuss recent chest CT scan results. Hx of pulmonary nodules.Last visit 10-18-2023. Patient c/o: Chest CT: 10-09-2024 Machine Engraver Required: No Accompanied by: Self / Same As Patient Allergies No Known Allergies Allergy (Verified 10/30/24 09:04) Medication List - Last Reconciled 10/30/24 by Fermin Culp MD ammonium lactate 12% 1 appl topical BID bisacodyl (Dulcolax (bisacodyl)) 10 mg (2 x 5 mg) PO ONCE 1 day cholecalciferol (vitamin D3) 10 mcg PO DAILY clozapine 300 mg PO BEDTIME polyethylene glycol 3350 (Miralax) 238 grams PO ONCE sodium chloride 0.65% ([place] Saline) 2 sprays intranasal TID HPI Comments Details: Patient presents for surveillance follow-up of right lung lesions. Status post left pneumonectomy. He has no respiratory issues or complaints. He has stable weight, energy, appetite. Denies any cough, hemoptysis, chest pain, or wheezing. 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 Mother No problems noted. Brother No problems noted. Brother No problems noted. Social History Alcohol intake: never Patient Tobacco Use Status: Former Tobacco user Years Smoked: 33 yrs Physical Exam Chest Other: Right chest sounds clear. Left side negative status post pneumonectomy GI Other: Abdomen is soft, benign. Lower midline scars Assessment & Plan Assessment & Plan (1) Multiple pulmonary nodules: Code(s): R91.8 - Other nonspecific abnormal finding of lung field Category: Surgical Plan: Patient will see me in 1 year's time with a follow-up CT scan surveillance of right lung lesions or.. All questions answered. (2) History of pneumonectomy: Onset Date: ~2013 Comment: (Left pneumonectomy, Gayathri Harrell - 12/31/2013) Code(s): Z98.890 - Other specified postprocedural states; Z90.2 - Acquired absence of lung [part of] Category: Surgical Plan: See above Orders: Orders CT chest wo/w IV con 11 Months R91.8 - Other nonspecific abnormal finding of lung field, Z90.2 - Acquired absence of lung [part of], Z98.890 - Other specified postprocedural states Coding Level of Care Code Est Pt Level 4 (79949) Diagnoses Multiple pulmonary nodules R91.8 History of pneumonectomy Z98.890; Z90.2
--- OUTSIDE RECORDS SUMMARY | 2024-10-30 09:38 | XMS_ITS ---
Author Organization [facility] Tyler alfonso [place] Address [address] [facility] [place] [address] Care Team Providers Care Scarfer Operator Name Role Phone Chester Teresa Primary Care Provider [phone] Mary Mason Unavailable [phone] Allergies No Known Allergies REASON FOR VISIT At Risk Footcare Medications Medication SIG (Take, Route, Frequency, Duration) Notes Start Date End Date Status Vitamin D Not-Taking Compression Stockings 20-30mm Hg as directed 05/30/2020 Not-Taking zzzCompression Stockings 20-30mm Hg . . . for . Not-Taking cloZAPine 50 MG 1 tablet Orally Once a day Active Ammonium Lactate 12 % APPLY TO AFFECTED AREA(S) ON FEET TWO TIMES A DAY DIRECTED for 30 Not-Taking Tylenol TopCare Not-Taking Social History Tobacco Use: Social History [...] tobacco user? No Vital Signs Height 5ft 7in in 08/07/2024 Weight 155 lbs 08/07/2024 BMI 24.27 kg/m2 08/07/2024 Blood pressure systolic 113 mm Hg 08/07/20 24 Blood pressure diastolic 66 mm Hg 024 Encounters Encounter Location Date Provider Diagnosis [facility] [address] [place] [address] 08/07/2024 Mary Mason Atherosclerosis of artery of both lower extremities I70.203 ; Tinea unguium B35.1 ; Pain in right toe(s) M79.674 and Pain in left toe(s) M79.675 Assessments Encounter Date Diagnosis (ICD Code) Assessment Notes Treatment Notes Treatment Clinical Notes Section Notes 08/07/2024 Atherosclerosis of artery of both lower extremities (ICD-10 - I70.203) 08/07/2024 Tinea unguium (ICD-10 - B35.1) 08/07/2024 Pain in right toe(s) (ICD-10 - M79.674) 08/07/2024 Pain in left toe(s) (ICD-10 - M79.675) Plan Of Treatment Next Appt Details Follow Up: 2 Months, Reason: Provider Name:Mary garcia, 12/12/2024 01:30:00 PM, [address] [place] [address], [phone], Provider Name:Mary garcia, 02/12/2025 01:30:00 PM, [address] [place] [address], [phone], Procedure Notes * Category Sub-Category Detail Notes Debride Nail 6-10 Nail debridement Due to the cl inical pathology outlined in the exam findings, performance of this nail treatment is medically necessary as its management by an unskilled/untrained nonprofessional would put this patients foot and overall health at risk. Therefore, debridement to affected nail(s), as described in exam, was performed extensively to reduce/remove overall nail length, girth, thickness, subungual debris, and necrotic tissue, by manual and/or electrical means through the use of a nail nipper and/or dremel-type grinder setup operator, to a more viable healthy nail plate [...] to maintain effectiveness in symptomatic relief - 18346 Keratoma Treatment Parring or Cutting o f Benign Hyperkeratotic Lesion(s) (-56) 2-4 Lesions - Due to the at risk nature of the patients medical condition as documented in the exam findings, performance of this keratoderma treatment is medically necessary as its management by an unskilled/untrained nonprofessional would put this patients foot and overall health at risk. Therefore, the benign hyperkeratotic lesions, ( 3) in total, locations as stated and described in the exam were pared, and/or cut utilizing a sterile 15 blade, tissue nippers, and/or power dremel instrumentation - 36009, Q8 Progress Notes * Minor DOMINGUEZ MDOB:1954 (69 yo M)Acc No.[id number]:08/07/2024 Progress Note Patient:?Minor DOMINGUEZ Provider:?Mary Mason DPM :1955???Age:69 Y???Sex:Male Rafat e:08/07/2024 Address:[address] [place] [address] [facility] Pcp:Narinder Rogers MD Subjective: * Chief Complaints: [...] hours a day. ?Marital status: single. 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 * Medications:?TakingcloZAPine 50 MG Tablet 1 [...] Allergies:?N.K.D.A.yes[Aller gies Verified] Objective: * Vitals:?Ht: 5ft 7in, Wt:155, BMI:24.27, Shoe size: 10.5-11, BP:113/66mm Hg, Ht- cm: 170.18 cm, Wt-k.31 kg. [...] STOCKINGS:?Absent.? Assessment: * Assessment: 1.?Tinea unguium - B35.1 (Pr imary)???2.?Atherosclerosis of artery of both lower extremities - I70.203???3.?Pain in right toe(s) - M79.674???4.?Pain in left toe(s) - M79.675??? Plan: * Treatment: * Procedures:?Debride Nail 6-10:?Nail debridement?Due to the clinical pathology outlined in the exam findings, performance of this nail treatment is medically necessary as its management by an unskilled/untrained nonprofessional would put this patients foot and overall health at risk. Therefore, debridement to affected nail(s), as described in exam, was performed extensively to reduce/remove overall nail length, girth, thickness, subungual debris, and necrotic tissue, by manual and/or electrical means through the use of a nail nipper and/or dremel-type grinder setup operator, to a more viable healthy nail plate [...] to maintain effectiveness in symptomatic relief - 10547.?Keratoma Treatment:?Parring or Cutting of Benign Hyperkeratotic Lesion(s)?(-56) 2-4 Lesions - Due to the at risk nature of the patients medical condition as documented in the exam findings, performance of this keratoderma treatment is medically necessary as its management by an unskilled/untrained nonprofessional would put this patients foot and overall health at risk. Therefore, the benign hyperkeratotic lesions, ( 3) in total, locations as stated and described in the exam were pared, and/or cut utilizing a sterile 15 blade, tissue nippers, and/or power dremel instrumentation - 23474, Q8.? * Procedure Codes:?53042 DEBRI DE NAIL, 6 OR MORE, Modifiers: XS 04615 TRIM SKIN LESIONS, 2 TO 4, Modifiers: XS , Q8 * Follow Up:?2 Months * Images: * Sign off status: Completed true * Provider:?Mary Mason DPM Date:?05/2024 Generated for Pedro Luis jaramillo/Bobby/Mouna on:?10/30/2024 09:38 AM EST History and Physical Notes * [...]
--- OUTSIDE RECORDS SUMMARY | 2024-10-30 09:38 | XMS_ITS ---
Author Organization [facility] Address [address] [place] [address] Care Team Providers Care Concrete Handler Name Role Phone Chester Teresa Primary Care Provider Mary Mason [phone] [place] Encounters Encounter Location Date Provider Diagnosis [address] [address] 10/16/2024 Mary Mason Plan Of Treatment Next Appt Details Provider Name:Mary garcia, 12/12/2024 01:30:00 PM, [address] [place] [address], [phone], Provider Name:Mary garcia, 02/12/2025 01:30:00 PM, [address] [place] [address], [phone], Progress Notes * Minor DOMINGUEZ MDOB:1954 (69 yo M)Acc No.[id number]:10/16/2024 Progress Note Patient:?Minor DOMINGUEZ Provider:?Mary Mason DPM :1955???Age:69 Y???Sex:Male Rafat e:10/16/2024 Address: [address] [place] Pcp:Chester Teresa Subjective: * Chief Complaints: * ???1. Dr Hampton. * Medical History:? Objective: * Vitals:? Assessment: Plan: * Treatment: * Images: * The named appointment provid er may or may not be the originator of this progress note, and it is not deemed complete until electronically signed by the appointment provider. Sign off status: Pending * Provider:?Mary Mason DPM Date:? Generated for Pedro Luis jaramillo/Bobby/Mouna on:?10/30/2024 09:38 AM EST
--- OUTSIDE RECORDS SUMMARY | 2024-10-30 09:38 | XMS_ITS | Patient Health Record ---
Author Organization [facility] Tyler alfonso [place] Address [address] [place] [address] Care Team Providers Care Chemical Packager Name Role Phone Chester Teresa Primary Care Provider Mary Mason Unavailable [phone] Allergies No Known Allergies Reason For Referral [...] Referring Provider Last Name Ken [facility] [place] Referred Provider Mary Mason Referred Address [address] [facility],[place],[address], Referred Provider Specialty Podiatry Referral Priority Routine [...] Problem Status W/U Status Risk Notes Problem [id number] Plantar wart (B07.0) Active confirmed Problem [id number] Atherosclerosi s of artery of both lower extremities (I70.203) Active confirmed Vital Signs Blood pressure diastolic 65 mm Hg 10/10/2024 Height 5ft7in in 10/10/2024 Blood pressure systolic 115 mm Hg 10/10/2024 Weight 155 lbs 10/10/2024 BMI 24.27 kg/m2 10/10/2024 Encounters Encounter Location Date Provider Diagnosis [address] [address] 11/01/2023 Mary Perica Atherosclerosis of artery of both lower extremities I70.203 ; Edema, lower extremity R60.0 ; Tinea unguium B35.1 ; Pain in right toe(s) M79.674 and Pain in left toe(s) M79.[address] [address] 01/11/2024 Mary Perica Atherosclerosis of artery of both lower extremities I70.203 ; Edema, lower extremity R60.0 ; Tinea unguium B35.1 ; Pain in right toe(s) M79.674 and Pain in left toe(s) M79.[address] [address] 03/21/2024 Mary Perica Atherosclerosis of artery of both lower extremities I70.203 ; Edema, lower extremity R60.0 ; Tinea unguium B35.1 ; Pain in right toe(s) M79.674 and Pain in left toe(s) M79.[address] [address] 06/05/2024 Mary Perica Atherosclerosis of artery of both lower extremities I70.203 ; Tinea unguium B35.1 ; Pain in right toe(s) M79.674 and Pain in left toe(s) M79.[address] [address] 08/07/2024 Mary Perica Atherosclerosis of artery of both lower extremities I70.203 ; Tinea unguium B35.1 ; Pain in right toe(s) M79.674 and Pain in left toe(s) M79.[address] [address] 10/10/2024 Mary Perica Atherosclerosis of artery of [...] Details Provider Name:Mary garcia, 12/12/2024 01:30:00 PM, [address] [place] [address], [phone], Provider Name:Mary garcia, 02/12/2025 01:30:00 PM, [address] [place], [phone], Insurance Providers Payer Name Payer Address Payer Phone Subscriber Number Group Number Insured Name Patient Relationship to Insured Coverage Start Date Coverage End Date BlueCare 65 Medicare Preferred [address] [place] [address] [id number] Minor Max Self - patient is the insured Medical (General) History Medical History History ICD Code Prostate cancer Surgical History Surgery Date(Month/Year) leg surgery- both legs- veins 01/2021
--- OUTSIDE RECORDS SUMMARY | 2024-10-30 09:38 | XMS_ITS | Patient Health Record ---
Author Organization Carl Zafar MD Address [address] [place], [place] [id number] Care Team Providers Care Utility Assembler Name Role Phone Narinder Rogers DO Primary [...] Problem Status W/U Status Risk Notes Problem [id number] History of prostate cancer (Z85.46) Active confirmed Problem [id number] History of lung cancer (Z85.118) Active confirmed Problem 27035199 Chronic venous insufficiency (I87.2) Active confirmed Plan Of Treatment No Information Insurance Providers Payer Name Payer Address Payer Phone Subscriber Number Group Number Insured Name Patient Relationship to Insured Coverage Start Date Coverage End Date BLUE CROSS AND BLUE SHIELD [address] [place], [place] [id number] Minor Max Self - patient is the insured
--- OUTSIDE RECORDS SUMMARY | 2024-10-30 09:38 | XMS_ITS ---
Author Organization [facility] Tyler alfonso [place] Address [address] [facility] [place] [address] Care Team Providers Care Cisco Certified Network Professional Name Role Phone Chester Teresa Primary Care Provider [phone] Mary Mason Unavailable [phone] Allergies No Known Allergies REASON FOR VISIT [...] 025 Encounters Encounter Location Date Provider Diagnosis [facility] [address] [place] [address] 10/10/2024 Mary Mason Atherosclerosis of artery of [...] Reason: Provider Name:Mary garcia, 12/12/2024 01:30:00 PM, [address] [place] [address], [phone], Provider Name:Mary garcia, 02/12/2025 01:30:00 PM, [address] [place] [address], [phone], Procedure Notes * Category Sub-Category Detail Notes [...] use of a nail nipper and/or dremel-type emery grinder, to a more viable healthy nail [...] to maintain effectiveness in symptomatic relief - 94825 Keratoma Treatment Parring or Cutting o f [...] instrumentation by the physician of record - 78311 Progress Notes * Minor DOMINGUEZ MDOB:1954 (69 yo M)Acc No.[id number]:10/10/2024 Progress Note Patient:?Minor DOMINGUEZ Provider:?Mary Mason DPM :1955???Age:69 Y???Sex:Male Rafat e:10/10/2024 Address:[address] [place] [address] [facility] Pcp:Chester Teresa Subjective: * Chief Complaints: * [...] hours a day. ?Marital status: single. 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 * Medications:?TakingcloZAPine 50 MG Tablet 1 [...] use of a nail nipper and/or dremel-type emery grinder, to a more viable healthy nail [...] to maintain effectiveness in symptomatic relief - 37390.?Keratoma Treatment:?Parring or Cutting of Benign Hyperkeratotic Lesion(s)?, [...] instrumentation by the physician of record - 49589.? * Procedure Codes:?36326 DEBRI DE NAIL, 6 OR MORE, Modifiers: XS 48243 TRIM SKIN LESION, Modifiers: XS , Q8 [...] DPM Date:?07/2025 Generated for Pedro Luis jaramillo/Bobby/Mouna on:?10/30/2024 09:37 AM EST History and Physical Notes * [...]
--- OUTSIDE RECORDS SUMMARY | 2024-10-30 09:38 | XMS_ITS ---
Author Organization Carl Zafar MD Address [address] [place] [phone] Care Team Providers Care Scaling Machine Operator Name Role Phone Narinder Ruby DO Primary Care Provider Unavail able Carl Zafar Unavailable [phone] Allergies No Known Allergies REASON FOR VISIT both legs swollen Dr. Ruby's patient since shoveling 09-05-23, No Covid symptoms Medications Medication SIG (Take, Route, Fr equency, [...] Problem Status W/U Status Risk Notes Problem 51130973 Chronic venous insufficiency (I87.2) Active confirmed Problem 526490643 History of lung cancer (Z85.118) Active confirmed Problem 037215474 History of prostate cancer (Z85.46) Active confirmed Vital Signs Blood pressure systolic 122 mm Hg 09/23/19 24 Blood pressure diastolic 60 mm Hg 024 Height 67 in 09/23/2023 Weight 159 lbs 09/23/2023 BMI 24.90 kg/m2 09/23/2023 Encounters Encounter Location Date Provider Diagnosis Carl Zafar MD [address] [facility] [place] [phone] 09/23/2023 Carl Zafar Chronic venous insufficiency I87.2 ; History of lung cancer Z85.118 and History of prostate cancer Z85.46 Assessments Encounter Date Diagnosis (ICD Code) Assessment Notes Treatment Notes Treatment Clinical Notes Section Notes 09/23/2023 Chronic venous insufficiency (ICD-10 - I87.2) have him follow up with dr ruby in few weeks 09/23/2023 History of lung cancer (ICD-10 - Z85.118) followed by dr saravia 09/23/2023 History of prostate cancer (ICD-10 - Z85.46) followed by dr german Plan Of Treatment Medication Medication Name Sig Start Date Stop Date Notes Furosemide 20 MG 1 tablet Orally Once a day for 30 day(s) 09/23/2023 Treatment Notes Assessment Notes Chronic venous insufficiency have him fo llow up with dr ruby in few weeks History of lung cancer followed by dr dino howell History of prostate cancer followed by deanne german Progress Notes * Minor DOMINGUEZDOB:[birth year] (68 yo M)Acc No.[id number]:09/23/2023 Progress Notes Patient:?Minor Dominguez Provider:?Carl Zafar MD :1955???Age:68 Y???Sex:Male Rafat e:09/23/2023 Address:[address] [place] [address] [facility] Pcp:Narinder Ruby, DO Subjective: * Chief Complaints: * ???both legs swollen Dr. Karime hernandez's patient since shoveling 09-05-23No Covid symptoms * HPI: ???Symptom(s):? patient is a 68 yo male here with complaint bilateral legs swelled up after shovelling. feet were swollen and sore but are better. no calf pains. * ROS:?General/Constitutional:?Denies?Chills.?Denies?Fatigue.?Denies?Fever.?Denies?Headache.?ENT:?Patient denies?decreased sense of smell , any loss of taste , sore throat.?Denies?Sore throat.?Respiratory:?Denies?Cough.?Denies?Shortness of breath at rest.?Denies?Shortness of breath with exertion.?Cardiovascular:?Denies?Chest pain at rest.?Denies?Chest pain with exertion.?Denies?Dizziness.?Admits?Fluid accumulation in the legs,?bilateral lower leg.?Denies?Shortness of breath.?Gastrointestinal:?Denies?Diarrhea.?Denies?Nausea.?Musculoskeletal:?Patient denies?muscle aches.?Peripheral Vascular:?Patient denies?red and blue toes.? * Medical History:? * Surgical History:? * Hospitalization/Major Diagno stic Procedure:? * Medications:?TakingAmmonium Lactate 12 % Cream 1 application Externally Twice a daycloZAPine 100 MG Tablet Disintegrating 1 tablet on the tongue and allow to dissolve Orally Once a dayMedication List reviewed and reconciled with the patientTaking Ammonium Lactate 12 % Cream 1 application Externally Twice a dayTaking cloZAPine 100 MG Tablet Disintegrating 1 tablet on the tongue and allow to dissolve Orally Once a dayMedication List reviewed and reconciled with the patient * Allergies:?N.K.D.A.yes[Aller gies Verified] Objective: * Vitals:?Ht:67, Wt:159, BMI:2 4.90, BP:122/60. * Examination: ???General Examination: ?GENERAL APPEARANCE:? alert, well hydrated, in no distress , male.?HEAD:? normocephalic.?SKIN:?good turgor.?HEART:? regular rate and rhythm, no murmurs, rubs, gallops.?LUNGS:?few?wheezes, rales, rhonchi, good air movement, clear to auscultation bilaterally.?EXTREMITIES:? 4+ pitting edema lower extremities no tenderness to palpation.? Assessment: * Assessment: 1.?Chronic venous insufficie ncy - I87.2 (Primary)?2.?History of lung cancer - Z85.118?3.?History of prostate cancer - Z85.46? Plan: * Treatment: 2.?History of lung cancer? Notes: followed by dr saravia.?? 3.?History of prostate cance r? Notes: followed by dr german.?? * Procedure Codes:? * * Sign off status: Completed true * Provider:?Carl Zafar MD Date:?0 09/23/2023 Generated for Magi clint/Bobby/eTransmitting on:?10/30/2024 09:37 AM EST History and Physical Notes * HPI (History of Present Illness) Category Sub-Category Detail Notes Category Not es Symptom(s) patient is a 68 yo male here with complaint bilateral legs swelled up after shovelling. feet were swollen and sore but are better. no calf pains. Examination Category Sub-Category Detail Notes Category Not es General Examination GENERAL APPEARANCE: alert, w ell hydrated, in no distress , male HEAD: normocephalic HEART: regular rate and rhy thm, no murmurs, rubs, gallops LUNGS: few wheezes, rales, rhonchi, good air movement, clear to auscultation bilaterally SKIN: good turgor EXTREMITIES: 4+ pitting edema low er extremities no tenderness to palpation
== END 2024-10-30 09:12 | disposition home or self-care (01) ==
PROVIDERS: PCP Internal Medicine; Visit Provider Surgery
DX: R91.8 Other nonspecific abnormal finding of lung field (principal); Z98.890 Other specified postprocedural states; Z90.2 Acquired absence of lung [part of]
CPT/HCPCS: 99214

== ENCOUNTER → 2024-10-30 08:53 | Outpatient (BNVA) | payer MEDICARE, SELFPAY | PROVIDERS: PCP Internal Medicine; Visit Provider Surgery | DX: R91.8 Other nonspecific abnormal finding of lung field (principal); Z90.2 Acquired absence of lung [part of]; Z98.890 Other specified postprocedural states | CPT/HCPCS: 99212 ==

== ENCOUNTER 2024-11-13 13:10 | Outpatient (REF) | payer MEDICARE, SELFPAY ==
--- OUTSIDE RECORDS SUMMARY | 2024-11-13 15:26 | XMS_ITS ---
Author Organization [facility] Tyler alfonso [place] Address [address] [facility] [place] [address] Care Team Providers Care Fast Foods Worker Name Role Phone Chester Teresa Primary Care Provider [phone] Mary Mason Unavailable [phone] Allergies No Known Allergies REASON FOR VISIT [...] 025 Encounters Encounter Location Date Provider Diagnosis [facility] [address] [place] [address] 10/10/2024 Mary Mason Atherosclerosis of artery of [...] Reason: Provider Name:Mary garcia, 12/12/2024 01:30:00 PM, [address] [place] [address], [phone], Provider Name:Mary garcia, 02/12/2025 01:30:00 PM, [address] [place] [address], [phone], Procedure Notes * Category Sub-Category Detail Notes [...] use of a nail nipper and/or dremel-type platen grinder, to a more viable healthy nail [...] to maintain effectiveness in symptomatic relief - 65572 Keratoma Treatment Parring or Cutting o f [...] instrumentation by the physician of record - 18693 Progress Notes * Minor DOMINGUEZ MDOB:1954 (69 yo M)Acc No.[id number]:10/10/2024 Progress Note Patient:?Minor DOMINGUEZ Provider:?Mary Mason DPM :1955???Age:69 Y???Sex:Male Rafat e:10/10/2024 Address:[address] [place] [address] [facility] Pcp:Chester Teresa Subjective: * Chief Complaints: * [...] hours a day. ?Marital status: single. 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 * Medications:?TakingcloZAPine 50 MG Tablet 1 [...] use of a nail nipper and/or dremel-type platen grinder, to a more viable healthy nail [...] to maintain effectiveness in symptomatic relief - 42578.?Keratoma Treatment:?Parring or Cutting of Benign Hyperkeratotic Lesion(s)?, [...] instrumentation by the physician of record - 33970.? * Procedure Codes:?40419 DEBRI DE NAIL, 6 OR MORE, Modifiers: XS 10714 TRIM SKIN LESION, Modifiers: XS , Q8 [...] Mason DPM Date:?07/2025 Generated for Pedro Luis jaramillo/Bobby/Meganitting on:?11/13/2024 03:26 PM EDT History and Physical Notes * HPI (History [...]
--- OUTSIDE RECORDS SUMMARY | 2024-11-13 15:26 | XMS_ITS ---
Author Organization Carl Zafar MD Address [address] [place] [phone] Care Team Providers Care Medieval English Literature Professor Name Role Phone Narinder Ruby DO Primary Care Provider Unavail able Carl Zafar Unavailable [phone] Allergies No Known Allergies REASON FOR VISIT [...] Problem Status W/U Status Risk Notes Problem 96618493 Chronic venous insufficiency (I87.2) Active confirmed Problem 892781671 History of lung cancer (Z85.118) Active confirmed Problem 517540459 History of prostate cancer (Z85.46) Active confirmed Vital Signs Blood pressure systolic 122 mm Hg 09/23/19 24 Blood pressure diastolic 60 mm Hg 024 Height 67 in 09/23/2023 Weight 159 lbs 09/23/2023 BMI 24.90 kg/m2 09/23/2023 Encounters Encounter Location Date Provider Diagnosis Carl Zafar MD [address] [facility] [address] [place] [phone] 09/23/2023 Carl Zafar Chronic venous insufficiency I87.2 [...] * Minor DOMINGUEZDOB:[birth year] (68 yo M)Acc No.[id number]:09/23/2023 Progress Notes Patient:?Minor Dominguez Provider:?Carl Zafar MD :1955???Age:68 Y???Sex:Male Rafat e:09/23/2023 Address:[address] [place] [address] [facility] Pcp:Narinder Ruby, DO Subjective: * Chief Complaints: [...] Provider:?Carl Zafar MD Date:?0 09/23/2023 Generated for Printi clint/Kang/eTransmitting on:?11/13/2024 03:26 PM EDT History and Physical [...]
--- OUTSIDE RECORDS SUMMARY | 2024-11-13 15:27 | XMS_ITS ---
Author Organization [facility] Address [address] [place] [address] Care Team Providers Care Structural Iron Erector Name Role Phone Chester Teresa Primary Care Provider Mary Mason [phone] [place] Encounters Encounter Location Date Provider Diagnosis [address] [address] 10/16/2024 Mary Mason Plan Of Treatment Next Appt Details Provider Name:Mary garcia, 12/12/2024 01:30:00 PM, [address] [place] [address], [phone], Provider Name:Mary garcia, 02/12/2025 01:30:00 PM, [address] [place] [address], [phone], Progress Notes * Minor DOMINGUEZ MDOB:1954 (69 yo M)Acc No.[id number]:10/16/2024 Progress Note Patient:?Minor DOMINGUEZ Provider:?Mary Mason DPM :1955???Age:69 Y???Sex:Male Rafat e:10/16/2024 Address: [address] [place] Pcp:Chester Teresa Subjective: * Chief Complaints: * [...] DPM Date:? Generated for Pedro Luis jaramillo/Bobby/Mouna on:?11/13/2024 03:26 PM EDT
--- OUTSIDE RECORDS SUMMARY | 2024-11-13 15:27 | XMS_ITS ---
Author Organization [facility] Tyler alfonso [place] Address [address] [facility] [place] [address] Care Team Providers Care Activities Director Name Role Phone Chester Teresa Primary Care Provider Mary Mason Unavailable [phone] Allergies No Known Allergies REASON FOR VISIT [...] 024 Encounters Encounter Location Date Provider Diagnosis [facility] [address] [place] [address] 08/07/2024 Mary Mason Atherosclerosis of artery of [...] Provider Name:Mary garcia, 12/12/2024 01:30:00 PM, [address] [place] [address], [phone], Provider Name:Mary garcia, 02/12/2025 01:30:00 PM, [address] [place] [address], [phone], Procedure Notes * Category Sub-Category Detail Notes [...] use of a nail nipper and/or dremel-type glaze grinder, to a more viable healthy nail [...] to maintain effectiveness in symptomatic relief - 49946 Keratoma Treatment Parring or Cutting o f [...] tissue nippers, and/or power dremel instrumentation - 98874, Q8 Progress Notes * Minor DOMINGUEZ MDOB:1954 (69 yo M)Acc No.[id number]:08/07/2024 Progress Note Patient:?Minor DOMINGUEZ Provider:?Mary Mason DPM :1955???Age:69 Y???Sex:Male Rafat e:08/07/2024 Address:[address] [place] [address] [facility] Pcp:Narinder Rogers MD Subjective: * Chief Complaints: [...] hours a day. ?Marital status: single. 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 * Medications:?TakingcloZAPine 50 MG Tablet 1 [...] use of a nail nipper and/or dremel-type glaze grinder, to a more viable healthy nail [...] to maintain effectiveness in symptomatic relief - 10066.?Keratoma Treatment:?Parring or Cutting of Benign Hyperkeratotic Lesion(s)?(-56) [...] tissue nippers, and/or power dremel instrumentation - 41595, Q8.? * Procedure Codes:?28783 DEBRI DE NAIL, 6 OR MORE, Modifiers: XS 94870 TRIM SKIN LESIONS, 2 TO 4, Modifiers: XS , Q8 * Follow Up:?2 Months * Images: * Sign off status: Completed true * Provider:?Mary Mason DPM Date:?05/2024 Generated for Pedro Luis jaramillo/Bobby/Mouna on:?11/13/2024 03:26 PM EDT History and Physical [...] pitting B/L Leg( s) without aching pain PIKNY'S SIGN: absent, B/L PALPABLE CORDS: absent, B/L PIGMENTATION: pale, B/L, brawny COMPRESSION STOCKINGS: Absent Nails NAILS are: Elongated, overg rown, dystrophic, lytic, greater than 3mm thick, discolored and friable with crumbly malodorous subungual debris, with pain on palpation, 1-5 B/L
--- OUTSIDE RECORDS SUMMARY | 2024-11-13 15:27 | XMS_ITS | Patient Health Record ---
[facility] Tyler alfonso [place] Address [address] [place] [address] Care Team Providers Care Bilingual Sales Representative Name Role Phone Chester Teresa Primary Care Provider [phone] Mary Mason Unavailable [phone] Allergies No Known Allergies Reason For Referral [...] Referring Provider Last Name Ken [facility] Referred Provider Mary Mason Referred Address [address] [facility],[address], Referred Provider Specialty Podiatry Referral Priority Routine [...] Problem Status W/U Status Risk Notes Problem 99291994 Plantar wart (B07.0) Active confirmed Problem 33804384574808750 Atherosclerosi s of artery of both lower extremities (I70.203) Active confirmed Vital Signs Blood pressure diastolic 65 mm Hg 10/10/2024 Height 5ft7in in 10/10/2024 Blood pressure systolic 115 mm Hg 10/10/2024 Weight 155 lbs 10/10/2024 BMI 24.27 kg/m2 10/10/2024 Encounters Encounter Location Date Provider Diagnosis [address] [address] 01/11/2024 Mary Perica Atherosclerosis of artery of both lower extremities I70.203 ; Edema, lower extremity R60.0 ; Tinea unguium B35.1 ; Pain in right toe(s) M79.674 and Pain in left toe(s) M79.[address] [address] 03/21/2024 Mary Perica Atherosclerosis of artery of both lower extremities I70.203 ; Edema, lower extremity R60.0 ; Tinea unguium B35.1 ; Pain in right toe(s) M79.674 and Pain in left toe(s) M79.[address] [address] 06/05/2024 Mary Perica Atherosclerosis of artery of both lower extremities I70.203 ; Tinea unguium B35.1 ; Pain in right toe(s) M79.674 and Pain in left toe(s) M79.[address] [address] 08/07/2024 Mary Perica Atherosclerosis of artery of both lower extremities I70.203 ; Tinea unguium B35.1 ; Pain in right toe(s) M79.674 and Pain in left toe(s) M79.675 [facility] [place] [address] [place] [address] 10/10/2024 Mary Perica Atherosclerosis of artery of both lower extremities I70.203 ; Tinea unguium B35.1 ; Pain in right toe(s) M79.674 ; Pain in left toe(s) M79.675 and Tinea pedis of both feet B35.3 Assessments Encounter Date Diagnosis (ICD Code) Assessment Notes Treatment Notes Treatment Clinical Notes Section Notes 01/11/2024 Atherosclerosis of artery of both lower [...] B35.1) 01/11/2024 Tinea unguium (ICD-10 - B35.1) 01/11/2024 Pain in right toe(s) (ICD-10 - [...] Details Provider Name:Mary garcia, 12/12/2024 01:30:00 PM, [address] [place] [address], [phone], Provider Name:Mary garcia, 02/12/2025 01:30:00 PM, [address] [place] [address], [phone], Insurance Providers Payer Name Payer Address Payer Phone Subscriber Number Group Number Insured Name Patient Relationship to Insured Coverage Start Date Coverage End Date Blue[employer] 65 Medicare Preferred [address] [place] [address] [id number] Minor Max Self - patient is the insured Medical (General) History Medical History History ICD Code Prostate cancer Surgical History Surgery Date(Month/Year) leg surgery- both legs- veins 01/2021
--- OUTSIDE RECORDS SUMMARY | 2024-11-13 15:27 | XMS_ITS | Patient Health Record ---
Author Organization Carl Zafar MD Address [address] [place], [place] [id number] Care Team Providers Care Tractor Operator Helper Name Role Phone Narinder Rogers DO Primary [...] Problem Status W/U Status Risk Notes Problem 612588539 History of prostate cancer (Z85.46) Active confirmed Problem 508375341 History of lung cancer (Z85.118) Active confirmed Problem 52355433 Chronic venous insufficiency (I87.2) Active confirmed Plan Of Treatment No Information Insurance Providers Payer Name Payer Address Payer Phone Subscriber Number Group Number Insured Name Patient Relationship to Insured Coverage Start Date Coverage End Date [employer] [address] [place], [place] [id number] Minor Max Self - patient is the insured
[2024-11-13 17:32] LABS: Prostate Specific Antigen < 0.10 ng/mL (<0.05-4.0)
== END 2024-11-13 13:11 | disposition home or self-care (01) ==
LOC: HO.HMGCLDS 13:10
PROVIDERS: PCP Internal Medicine; Visit Provider Physician Assistant
DX: Z12.5 Encounter for screening for malignant neoplasm of prostate (principal); Z85.46 Personal history of malignant neoplasm of prostate
CPT/HCPCS: 36415; 84153

== ENCOUNTER 2024-11-14 12:48 | Outpatient (REF) | payer OTHER, SELFPAY ==
--- OUTSIDE RECORDS SUMMARY | 2024-11-14 15:09 | XMS_ITS | Patient Health Record ---
Author Organization Carl Zafar MD Address [address] [place], [place] [id number] Care Team Providers Care Reimbursement Auditor Name Role Phone Narinder Rogers DO Primary [...] Problem Status W/U Status Risk Notes Problem 949367625 History of prostate cancer (Z85.46) Active confirmed Problem 443943792 History of lung cancer (Z85.118) Active confirmed Problem 52799417 Chronic venous insufficiency (I87.2) Active confirmed Plan Of Treatment No Information Insurance Providers Payer Name Payer Address Payer Phone Subscriber Number Group Number Insured Name Patient Relationship to Insured Coverage Start Date Coverage End Date [employer]UE [employer]IELD [address] [place], [place] [id number] Minor Max Self - patient is the insured
--- OUTSIDE RECORDS SUMMARY | 2024-11-14 15:09 | XMS_ITS ---
Author Organization [facility] Tyler alfonso [place] Address [address] [facility] [place] [address] Care Team Providers Care Carpenter Repair Name Role Phone Chester Teresa Primary Care Provider Mary Mason Unavailable [phone] Allergies No Known Allergies REASON FOR VISIT [...] 024 Encounters Encounter Location Date Provider Diagnosis [facility] [address] [place] [address] 08/07/2024 Mary Mason Atherosclerosis of artery of [...] Reason: Provider Name:Mary garcia, 12/12/2024 01:30:00 PM, [address] [place] [address], [phone], Provider Name:Mary garcia, 02/12/2025 01:30:00 PM, [address] [place] [address], [phone], Procedure Notes * Category Sub-Category Detail Notes [...] of a nail nipper and/or dremel-type precision lens grinder, to a more viable healthy nail [...] to maintain effectiveness in symptomatic relief - 00220 Keratoma Treatment Parring or Cutting o f [...] tissue nippers, and/or power dremel instrumentation - 68859, Q8 Progress Notes * Minor DOMINGUEZ MDOB:1954 (69 yo M)Acc No.[id number]:08/07/2024 Progress Note Patient:?Minor DOMINGUEZ Provider:?Mary Mason DPM :1955???Age:69 Y???Sex:Male Rafat e:08/07/2024 Address:[address] [place] [address] [facility] Pcp:Narinder Rogers MD Subjective: * Chief Complaints: [...] hours a day. ?Marital status: single. 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 * Medications:?TakingcloZAPine 50 MG Tablet 1 [...] of a nail nipper and/or dremel-type precision lens grinder, to a more viable healthy nail [...] to maintain effectiveness in symptomatic relief - 50093.?Keratoma Treatment:?Parring or Cutting of Benign Hyperkeratotic Lesion(s)?(-56) [...] tissue nippers, and/or power dremel instrumentation - 90539, Q8.? * Procedure Codes:?32078 DEBRI DE NAIL, 6 OR MORE, Modifiers: XS 98252 TRIM SKIN LESIONS, 2 TO 4, Modifiers: XS , Q8 * Follow Up:?2 Months * Images: * Sign off status: Completed true * Provider:?Mary Mason DPM Date:?05/2024 Generated for Pedro Luis jaramillo/Bobby/Mouna on:?11/14/2024 03:09 PM EDT History and Physical Notes * [...]
--- OUTSIDE RECORDS SUMMARY | 2024-11-14 15:09 | XMS_ITS ---
Author Organization [facility] Tyler alfonso [place] Address [address] [facility] [place] [address] Care Team Providers Care Vmware Architect Name Role Phone Chester Teresa Primary Care Provider Mary Mason Unavailable [phone] Allergies No Known Allergies REASON FOR VISIT [...] 025 Encounters Encounter Location Date Provider Diagnosis [facility] [address] [place] [address] 10/10/2024 Mary Mason Atherosclerosis of artery of [...] Reason: Provider Name:Mary garcia, 12/12/2024 01:30:00 PM, [address] [place] [address], [phone], Provider Name:Mary garcia, 02/12/2025 01:30:00 PM, [address] [place] [address], [phone], Procedure Notes * Category Sub-Category Detail Notes [...] use of a nail nipper and/or dremel-type edge grinder, to a more viable healthy nail [...] to maintain effectiveness in symptomatic relief - 24441 Keratoma Treatment Parring or Cutting o f [...] instrumentation by the physician of record - 34602 Progress Notes * Minor DOMINGUEZ MDOB:1954 (69 yo M)Acc No.[id number]:10/10/2024 Progress Note Patient:?Minor DOMINGUEZ Provider:?Mary Mason DPM :1955???Age:69 Y???Sex:Male Rafat e:10/10/2024 Address:[address] [place] [address] [facility] Pcp:Chester Teresa Subjective: * Chief Complaints: * [...] hours a day. ?Marital status: single. 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 * Medications:?TakingcloZAPine 50 MG Tablet 1 [...] use of a nail nipper and/or dremel-type edge grinder, to a more viable healthy nail [...] to maintain effectiveness in symptomatic relief - 12292.?Keratoma Treatment:?Parring or Cutting of Benign Hyperkeratotic Lesion(s)?, [...] instrumentation by the physician of record - 87088.? * Procedure Codes:?70037 DEBRI DE NAIL, 6 OR MORE, Modifiers: XS 18156 TRIM SKIN LESION, Modifiers: XS , Q8 [...] DPM Date:?07/2025 Generated for Pedro Luis jaramillo/Bobby/Meganitting on:?11/14/2024 03:09 PM EDT History and Physical [...]
--- OUTSIDE RECORDS SUMMARY | 2024-11-14 15:09 | XMS_ITS ---
Author Organization [facility] Address [address] [place] [address] Care Team Providers Care Manager Legal Name Role Phone Chester Teresa Primary Care Provider Mary Mason [phone] [place] Encounters Encounter Location Date Provider Diagnosis [address] [address] 10/16/2024 Mary Mason Plan Of Treatment Next Appt Details Provider Name:Mary garcia, 12/12/2024 01:30:00 PM, [address] [place] [address], [phone], Provider Name:Mary garcia, 02/12/2025 01:30:00 PM, [address] [place] [address], [phone], Progress Notes * Minor DOMINGUEZ MDOB:1954 (69 yo M)Acc No.[id number]:10/16/2024 Progress Note Patient:?Minor DOMINGUEZ Provider:?Mary Mason DPM :1955???Age:69 Y???Sex:Male Rafat e:10/16/2024 Address: [address] [id number] Pcp:Chester Teresa Subjective: * Chief Complaints: * [...] DPM Date:? Generated for Pedro Luis jaramillo/Bobby/Mouna on:?11/14/2024 03:09 PM EDT
--- OUTSIDE RECORDS SUMMARY | 2024-11-14 15:09 | XMS_ITS ---
Author Organization Carl Zafar MD Address [address] [place] [id number] Care Team Providers Care Convenience Store Manager Name Role Phone Narinder Ruby DO Primary Care Provider Unavail able Carl Zafar Unavailable [phone] Allergies No Known Allergies REASON FOR VISIT [...] Problem Status W/U Status Risk Notes Problem 82242724 Chronic venous insufficiency (I87.2) Active confirmed Problem 382622864 History of lung cancer (Z85.118) Active confirmed Problem 912920390 History of prostate cancer (Z85.46) Active confirmed Vital Signs Blood pressure systolic 122 mm Hg 09/23/19 24 Blood pressure diastolic 60 mm Hg 024 Height 67 in 09/23/2023 Weight 159 lbs 09/23/2023 BMI 24.90 kg/m2 09/23/2023 Encounters Encounter Location Date Provider Diagnosis Carl Zafar MD [address] [place] [phone] 09/23/2023 Carl Zafar Chronic venous insufficiency I87.2 [...] have him fo llow up with dr ruyb in few weeks History of lung cancer followed by dr dino howell History of prostate cancer followed by deanne german Progress Notes * Minor DOMINGUEZDOB:[birth year] (68 yo M)Acc No.[id number]:09/23/2023 Progress Notes Patient:?Minor Dominguez Provider:?Carl Zafar MD :1955???Age:68 Y???Sex:Male Rafat e:09/23/2023 Address:[address] [place] [address] [facility] Pcp:Narinder Ruby, DO Subjective: * Chief Complaints: [...] Zafar MD Date:?0 09/23/2023 Generated for Printi ng/Kang/eTransmitting on:?11/14/2024 03:08 PM EDT History and Physical Notes * [...]
--- OUTSIDE RECORDS SUMMARY | 2024-11-14 15:10 | XMS_ITS | Patient Health Record ---
[facility] alfonso Tyrone Address [address] [place] [address] Care Team Providers Care Credentialing Coordinator Name Role Phone Chester Teresa Primary Care Provider [phone] Mary Mason Unavailable [phone] Allergies No Known Allergies Reason For Referral [...] Referring Provider Last Name Ken [facility] Jose Alfredo Referred Provider Mary Mason Referred Address [address] [facility],[place], [place],[address], Referred Provider Specialty Podiatry Referral Priority Routine [...] Problem Status W/U Status Risk Notes Problem 96281408 Plantar wart (B07.0) Active confirmed Problem 73106222910981908 Atherosclerosi s of artery of both lower extremities (I70.203) Active confirmed Vital Signs Blood pressure diastolic 65 mm Hg 10/10/2024 Height 5ft7in in 10/10/2024 Blood pressure systolic 115 mm Hg 10/10/2024 Weight 155 lbs 10/10/2024 BMI 24.27 kg/m2 10/10/2024 Encounters Encounter Location Date Provider Diagnosis [address] [address] 01/11/2024 Mary Perica Atherosclerosis of artery of both lower extremities I70.203 ; Edema, lower extremity R60.0 ; Tinea unguium B35.1 ; Pain in right toe(s) M79.674 and Pain in left toe(s) M79.[address] [address] 03/21/2024 Mary Perica Atherosclerosis of artery of both lower extremities I70.203 ; Edema, lower extremity R60.0 ; Tinea unguium B35.1 ; Pain in right toe(s) M79.674 and Pain in left toe(s) M79.[address] [address] 06/05/2024 Mary Perica Atherosclerosis of artery of both lower extremities I70.203 ; Tinea unguium B35.1 ; Pain in right toe(s) M79.674 and Pain in left toe(s) M79.[address] [address] 08/07/2024 Mary Perica Atherosclerosis of artery of both lower extremities I70.203 ; Tinea unguium B35.1 ; Pain in right toe(s) M79.674 and Pain in left toe(s) M79.675 [facility] [place] [address] [place] [address] 10/10/2024 Mary Perica Atherosclerosis of artery of [...] Details Provider Name:Mary garcia, 12/12/2024 01:30:00 PM, [address] [place] [address], [phone], Provider Name:Mary garcia, 02/12/2025 01:30:00 PM, [address] [place] [address], [phone], Insurance Providers Payer Name Payer Address Payer Phone Subscriber Number Group Number Insured Name Patient Relationship to Insured Coverage Start Date Coverage End Date [employer] 65 Medicare Preferred [address] [place] [address] [phone] [id number] Minor Max Self - patient is the insured Medical (General) History Medical History History ICD Code Prostate cancer Surgical History Surgery Date(Month/Year) leg surgery- both legs- veins 01/2021
[2024-11-14 16:15] LABS: MANUAL DIFF FLAG NO
[2024-11-14 16:22] LABS: Basophils Percent Auto 0.5 % (0-2); Eosinophils Absolute Auto 0.1 X10*3/uL (0.0-0.4); Eosinophils Percent Auto 0.9 % (0-4); Hematocrit 40.1 % (42.0-52.0); Hemoglobin 13.5 g/dl (14.0-18.0); Imm Gran Abs Auto 0.02 X10*3/uL (0.00-0.03); Imm Gran Pct Auto 0.3 % (0.0-0.4); Lymphocytes Absolute Auto 0.9 X10*3/uL (1.2-4.9); Lymphocytes Percent Auto 13.5 % (20-40); Mean Corpuscular HGB Conc 33.7 g/dl (31.0-36.0); Mean Corpuscular Hemoglobin 30.9 pg (27.0-33.0); Mean Corpuscular Volume 91.8 fL (80.0-98.0); Mean Platelet Volume 11.1 fL (9.4-12.4); Monocytes Absolute Auto 0.7 X10*3/uL (0.1-1.2); Monocytes Percent Auto 10.4 % (2-11); Neutrophils Absolute Auto 4.7 x10*3/uL (2.0-8.3); Neutrophils Percent Auto 74.4 % (45-73); Platelet Count 200 X10*3/uL (160-400); Red Blood Count 4.37 X10*6/uL (4.60-5.80); Red Cell Distribution Width 12.3 % (11.0-16.0); White Blood Count 6.4 X10*3/uL (4.8-10.8)
== END 2024-11-14 12:49 | disposition home or self-care (01) ==
LOC: HO.HMGCLR 12:48
PROVIDERS: PCP Internal Medicine; Visit Provider Psychiatry & Neurology Psychiatry
DX: Z79.899 Other long term (current) drug therapy (principal)
CPT/HCPCS: 36415; 85025

== ENCOUNTER 2024-12-12 09:05 | Outpatient (REF) | payer OTHER, SELFPAY ==
[2024-12-12 10:04] LABS: MANUAL DIFF FLAG NO
[2024-12-12 10:20] LABS: Basophils Percent Auto 0.7 % (0-2); Eosinophils Absolute Auto 0.1 X10*3/uL (0.0-0.4); Eosinophils Percent Auto 1.4 % (0-4); Hemoglobin 14.2 g/dl (14.0-18.0); Imm Gran Abs Auto 0.02 X10*3/uL (0.00-0.03); Imm Gran Pct Auto 0.5 % (0.0-0.4); Lymphocytes Absolute Auto 0.8 X10*3/uL (1.2-4.9); Lymphocytes Percent Auto 17.9 % (20-40); Mean Corpuscular HGB Conc 33.8 g/dl (31.0-36.0); Mean Corpuscular Volume 91.7 fL (80.0-98.0); Mean Platelet Volume 10.1 fL (9.4-12.4); Monocytes Absolute Auto 0.4 X10*3/uL (0.1-1.2); Monocytes Percent Auto 9.5 % (2-11); Neutrophils Absolute Auto 3.1 x10*3/uL (2.0-8.3); Platelet Count 205 X10*3/uL (160-400); Red Blood Count 4.58 X10*6/uL (4.60-5.80); Red Cell Distribution Width 12.1 % (11.0-16.0); White Blood Count 4.4 X10*3/uL (4.8-10.8)
== END 2024-12-12 09:06 | disposition home or self-care (01) ==
LOC: HO.HMGCLDS 09:05
DX: Z79.899 Other long term (current) drug therapy (principal)
CPT/HCPCS: 36415; 85025

== ENCOUNTER 2025-01-14 13:25 | Outpatient (REF) | payer OTHER, SELFPAY ==
[2025-01-14 16:07] LABS: MANUAL DIFF FLAG NO
[2025-01-14 16:16] LABS: Basophils Percent Auto 0.7 % (0-2); Eosinophils Absolute Auto 0.1 X10*3/uL (0.0-0.4); Eosinophils Percent Auto 1.1 % (0-4); Hematocrit 38.9 % (42.0-52.0); Hemoglobin 13.1 g/dl (14.0-18.0); Imm Gran Abs Auto 0.02 X10*3/uL (0.00-0.03); Imm Gran Pct Auto 0.4 % (0.0-0.4); Lymphocytes Absolute Auto 0.8 X10*3/uL (1.2-4.9); Mean Corpuscular HGB Conc 33.7 g/dl (31.0-36.0); Mean Corpuscular Hemoglobin 31.3 pg (27.0-33.0); Mean Corpuscular Volume 92.8 fL (80.0-98.0); Mean Platelet Volume 10.7 fL (9.4-12.4); Monocytes Absolute Auto 0.6 X10*3/uL (0.1-1.2); Monocytes Percent Auto 11.1 % (2-11); Neutrophils Absolute Auto 4.1 x10*3/uL (2.0-8.3); Neutrophils Percent Auto 72.7 % (45-73); Platelet Count 201 X10*3/uL (160-400); Red Blood Count 4.19 X10*6/uL (4.60-5.80); Red Cell Distribution Width 12.3 % (11.0-16.0); White Blood Count 5.7 X10*3/uL (4.8-10.8)
== END 2025-01-14 13:26 | disposition home or self-care (01) ==
LOC: HO.HMGCLR 13:25
PROVIDERS: PCP Internal Medicine
DX: Z79.899 Other long term (current) drug therapy (principal)
CPT/HCPCS: 36415; 85025

== ENCOUNTER 2025-02-12 10:13 | Outpatient (REF) | payer OTHER, SELFPAY ==
[2025-02-12 13:16] LABS: MANUAL DIFF FLAG NO
[2025-02-12 13:34] LABS: Basophils Percent Auto 0.6 % (0-2); Eosinophils Absolute Auto 0.1 X10*3/uL (0.0-0.4); Eosinophils Percent Auto 1.1 % (0-4); Hematocrit 39.3 % (42.0-52.0); Hemoglobin 12.9 g/dl (14.0-18.0); Imm Gran Abs Auto 0.02 X10*3/uL (0.00-0.03); Imm Gran Pct Auto 0.4 % (0.0-0.4); Lymphocytes Absolute Auto 0.8 X10*3/uL (1.2-4.9); Lymphocytes Percent Auto 17.5 % (20-40); Mean Corpuscular HGB Conc 32.8 g/dl (31.0-36.0); Mean Corpuscular Hemoglobin 30.8 pg (27.0-33.0); Mean Corpuscular Volume 93.8 fL (80.0-98.0); Mean Platelet Volume 10.2 fL (9.4-12.4); Monocytes Absolute Auto 0.5 X10*3/uL (0.1-1.2); Monocytes Percent Auto 11.6 % (2-11); Neutrophils Absolute Auto 3.2 x10*3/uL (2.0-8.3); Neutrophils Percent Auto 68.8 % (45-73); Platelet Count 219 X10*3/uL (160-400); Red Blood Count 4.19 X10*6/uL (4.60-5.80); Red Cell Distribution Width 12.6 % (11.0-16.0); White Blood Count 4.6 X10*3/uL (4.8-10.8)
== END 2025-02-12 10:14 | disposition home or self-care (01) ==
LOC: HO.HMGCLR 10:13
PROVIDERS: PCP Internal Medicine
DX: Z79.899 Other long term (current) drug therapy (principal)
CPT/HCPCS: 36415; 85025

== ENCOUNTER 2025-03-12 12:58 | Outpatient (REF) | payer OTHER, SELFPAY ==
[2025-03-12 16:11] LABS: MANUAL DIFF FLAG NO
[2025-03-12 16:34] LABS: Hematocrit 37.6 % (42.0-52.0); Hemoglobin 12.6 g/dl (14.0-18.0); Imm Gran Abs Auto 0.01 X10*3/uL (0.00-0.03); Imm Gran Pct Auto 0.2 % (0.0-0.4); Lymphocytes Absolute Auto 0.7 X10*3/uL (1.2-4.9); Mean Corpuscular HGB Conc 33.5 g/dl (31.0-36.0); Mean Corpuscular Hemoglobin 30.8 pg (27.0-33.0); Mean Corpuscular Volume 91.9 fL (80.0-98.0); NRBC Abs Auto 0.000 X10*3/uL (0.0-0.012); NRBC Pct Auto 0.0 /100WBC (0.0-0.2); Platelet Count 231 X10*3/uL (160-400); Red Blood Count 4.09 X10*6/uL (4.60-5.80); White Blood Count 5.1 X10*3/uL (4.8-10.8)
== END 2025-03-12 12:59 | disposition home or self-care (01) ==
LOC: HO.HMGCLR 12:58
PROVIDERS: PCP Internal Medicine
DX: Z79.899 Other long term (current) drug therapy (principal)
CPT/HCPCS: 36415; 85025

== ENCOUNTER 2025-04-12 10:38 | Outpatient (REF) | payer OTHER, SELFPAY ==
[2025-04-12 13:26] LABS: MANUAL DIFF FLAG NO
[2025-04-12 13:45] LABS: Hematocrit 38.3 % (42.0-52.0); Hemoglobin 12.7 g/dl (14.0-18.0); Imm Gran Abs Auto 0.02 X10*3/uL (0.00-0.03); Imm Gran Pct Auto 0.4 % (0.0-0.4); Lymphocytes Absolute Auto 0.6 X10*3/uL (1.2-4.9); Mean Corpuscular HGB Conc 33.2 g/dl (31.0-36.0); Mean Corpuscular Hemoglobin 30.8 pg (27.0-33.0); Mean Corpuscular Volume 92.7 fL (80.0-98.0); NRBC Abs Auto 0.000 X10*3/uL (0.0-0.012); NRBC Pct Auto 0.0 /100WBC (0.0-0.2); Platelet Count 218 X10*3/uL (160-400); Red Blood Count 4.13 X10*6/uL (4.60-5.80); White Blood Count 5.7 X10*3/uL (4.8-10.8)
== END 2025-04-12 10:39 | disposition home or self-care (01) ==
LOC: HO.HMGCLR 10:38
PROVIDERS: PCP Internal Medicine
DX: Z79.899 Other long term (current) drug therapy (principal)
CPT/HCPCS: 36415; 85025

== ENCOUNTER 2025-05-09 07:11 | Outpatient (REF) | payer OTHER, SELFPAY ==
[2025-05-09 10:16] LABS: MANUAL DIFF FLAG NO
[2025-05-09 10:20] LABS: Hematocrit 37.3 % (42.0-52.0); Hemoglobin 12.7 g/dl (14.0-18.0); Imm Gran Abs Auto 0.02 X10*3/uL (0.00-0.03); Imm Gran Pct Auto 0.4 % (0.0-0.4); Lymphocytes Absolute Auto 0.7 X10*3/uL (1.2-4.9); Mean Corpuscular HGB Conc 34.0 g/dl (31.0-36.0); Mean Corpuscular Hemoglobin 30.9 pg (27.0-33.0); Mean Corpuscular Volume 90.8 fL (80.0-98.0); NRBC Abs Auto 0.000 X10*3/uL (0.0-0.012); NRBC Pct Auto 0.0 /100WBC (0.0-0.2); Platelet Count 209 X10*3/uL (160-400); Red Blood Count 4.11 X10*6/uL (4.60-5.80); White Blood Count 4.7 X10*3/uL (4.8-10.8)
== END 2025-05-09 07:12 | disposition home or self-care (01) ==
LOC: HO.HMGCLDS 07:11
PROVIDERS: PCP Internal Medicine
DX: Z79.899 Other long term (current) drug therapy (principal)
CPT/HCPCS: 36415; 85025